=== PATIENT | male | born 1960 | race Caucasian/White ===

== ENCOUNTER 2023-03-28 09:36 | Inpatient (IN) | payer OTHER ==
[~2023-03-28 09:36] MED LIST: ALPRAZolam 0.25 MG TAB PO PRN; ALPRAZolam 0.5 MG TAB PO PRN; ASPIRIN 325 MG TAB PO STA; NITROGLYCERIN SL TABS 0.4 MG TAB SUBLINGUAL PRN
[2023-03-28] MEDS ORDERED: ASPIRIN 81 MG ONE (10:17)
[2023-03-28] MEDS: SODIUM CHLORIDE 0.9% 1,000 ML in EMPTY BAG 1 BAG IV SCH (10:32)
[2023-03-28 10:45] LABS: Basophils % (A) 1 %; Eosinophils # (A) 0.1 k/uL (0-0.7); Eosinophils % (A) 2 %; HCT 46.7 % (39.0-53.0); HGB 15.5 gm/dL (13.0-17.5); Lymphocytes # (A) 1.5 k/uL (1.0-4.8); Lymphocytes % (A) 31 %; MCH 30.1 pg (25.0-35.0); MCHC 33.2 g/dL (31.0-37.0); MCV 90.5 fL (80.0-100.0); Mean Platelet Volume 7.2; Monocytes # (A) 0.4 k/uL (0-1.0); Monocytes % (A) 8 %; Neutrophils # (A) 2.8 k/uL (1.3-7.7); Neutrophils % (A) 56 %; Platelet Count 154 k/uL (150-450); RBC 5.17 m/uL (4.30-5.90); RDW 13.2 % (11.5-15.5); WBC 4.9 k/uL (3.8-10.6)
[2023-03-28 10:51] LABS: Calcium 9.5 mg/dL (8.4-10.2); Potassium 4.3 mmol/L (3.5-5.1)
[2023-03-28] MEDS ORDERED: fentaNYL (PF) 50 MCG/ML 2 ML AMP ONE (11:53)
[2023-03-28] MEDS ORDERED: fentaNYL (PF) 50 MCG/ML 2 ML AMP IV ONE (11:58)
[2023-03-28] MEDS ORDERED: MIDAZOLAM 2 MG/2 ML VIAL IV ONE (11:58)
[2023-03-28] MEDS ORDERED: LIDOCAINE 1% INJ 10MG/ML (5 ML VIAL-PF) SQ ONE (12:00)
[2023-03-28] MEDS ORDERED: VERAPAMIL SYRINGE (5 MG/10 ML) INTRAARTER ONE (12:01)
[2023-03-28] MEDS ORDERED: HEPARIN SODIUM 1,000 UN/ML (10ML VL) ONE (12:02)
[2023-03-28] MEDS ORDERED: HEPARIN SODIUM 1,000 UN/ML (10ML VL) IV ONE (12:08)
[2023-03-28] MEDS ORDERED: IOPAMIDOL-370 100ML BTL INJ ONE (12:17)
[2023-03-28] MEDS ORDERED: RX INFO: IV CONTRAST WAS GIVEN 1 EACH MISC MISCELLANE PRN (12:31)
--- NOTE | 2023-03-28 12:31 | P.CARDCATH ---
Description of Procedure: PROCEDURES PERFORMED: Bilateral coronary angiography INDICATION: Unstable angina, aortic stenosis CONSENT:I have discussed the risks, benefits and alternative therapies for the above-mentioned procedure and for both sedation/analgesia as well as necessary blood product administration, if indicated, as they pertain to this patient. The patient has indicated understanding and acceptance of the risks and procedures discussed. PROCEDURE: After the risks, benefits and alternatives of the above mentioned procedure explained in detail with the patient, informed consent was obtained. Patient was taken to the catheterization lab and prepped and draped in usual fashion. 1% lidocaine was used to anesthetize the right radial artery. A 6- Dutch sheath was placed in the right radial artery using modified Seldinger technique. Left coronary angiography was performed with a 5-Dutch JL 3.5 catheter and right coronary angiography was performed with a 6-Dutch AR 2 catheter in various views. There was significant tortuosity of the innominate takeoff and recommend left radial approach in the future if able. The right radial sheath was removed and a TR band was placed with hemostasis achieved. The patient tolerated the procedure well. Patient was transported back to the post catheterization holding area in stable condition. Conscious Sedation: Patient was monitored under the direct supervision of myself for conscious sedation using Versed and fentanyl for a total duration of 20 minutes HEMODYNAMICS: Aorta: 122/74 SELECTIVE CORONARY ARTERIOGRAPHY: LEFT MAIN: The left main is a large caliber vessel which trifurcates into the LAD, ramus and circumflex. There is distal left main 30% stenosis. LEFT ANTERIOR DESCENDING CORONARY ARTERY: LAD is a large caliber vessel which wraps around to the apex. There is a proximal LAD 80% stenosis followed by a moderate caliber diagonal branch as well as moderate caliber septal angle shearer. The LAD has a 95% stenosis just distal to diagonal 1 branch. There is DANN 2 flow to the LAD. RAMUS INTERMEDIUS: The ramus is moderate caliber with a proximal ramus 30% stenosis. LEFT CIRCUMFLEX CORONARY ARTERY: Left circumflex is a moderate caliber vessel without significant stenosis. RIGHT CORONARY ARTERY: The right coronary artery is a large caliber vessel which gives off a PDA and PLV branch and is the dominant vessel. There is a proximal RCA 40% stenosis and otherwise mild luminal irregularities. FINAL IMPRESSION: 1. CAD as described above including 30% left main, proximal LAD 80%, mid LAD 95%, ramus 30%, RCA 40% stenosis. PLAN: 1. Aggressive risk factor modification per most recent ACC/AHA guidelines. 2. Given concomitant aortic stenosis and proximal and mid LAD diffuse disease recommend evaluation for bypass and surgical aortic valve replacement.
[2023-03-28] MEDS ORDERED: HEPARIN SODIUM 1,000 UN/ML (10ML VL) IV PRN (12:32)
[2023-03-28] MEDS ORDERED: SODIUM CHLORIDE 0.9% 1,000 ML IV SCH (12:45)
[2023-03-28] MEDS ORDERED: HEPARIN SOD,PORK IN 0.45% NACL 25,000 UNIT in 0.45% NACL 1 250ML.BAG IV SCH (12:45)
[2023-03-28 13:51] LABS: INR 1.1 (<1.2); Partial Thromboplastin Time 54.9 sec (22.0-30.0); Prothrombin Time 11.1 sec (9.0-12.0)
[2023-03-28 14:14] LABS: Basophils % (A) 1 %; Eosinophils # (A) 0.1 k/uL (0-0.7); Eosinophils % (A) 2 %; HCT 40.5 % (39.0-53.0); HGB 13.8 gm/dL (13.0-17.5); Lymphocytes # (A) 1.3 k/uL (1.0-4.8); Lymphocytes % (A) 30 %; MCH 29.9 pg (25.0-35.0); MCV 88.2 fL (80.0-100.0); Mean Platelet Volume 7.3; Monocytes # (A) 0.2 k/uL (0-1.0); Monocytes % (A) 5 %; Neutrophils # (A) 2.7 k/uL (1.3-7.7); Neutrophils % (A) 60 %; Platelet Count 145 k/uL (150-450); RBC 4.59 m/uL (4.30-5.90); RDW 13.3 % (11.5-15.5); WBC 4.5 k/uL (3.8-10.6)
[2023-03-28 14:19] LABS: ALT 32 U/L (4-49); AST 35 U/L (17-59); African American GFR (CKD) 83 (>60 ml/min/1.73 sqM); Albumin 3.7 g/dL (3.5-5.0); Alkaline Phosphatase 90 U/L (38-126); Anion Gap 8 mmol/L; Blood Urea Nitrogen 21 mg/dL (9-20); Calcium 8.7 mg/dL (8.4-10.2); Carbon Dioxide 23 mmol/L (22-30); Chloride 106 mmol/L (98-107); Glucose 123 mg/dL (74-99); Non-African American GFR(CKD) 72 (>60 ml/min/1.73 sqM); Sodium 137 mmol/L (137-145); Total Bilirubin 0.6 mg/dL (0.2-1.3); Total Protein 6.5 g/dL (6.3-8.2)
--- NOTE | 2023-03-28 14:55 | XR ---
EXAMINATION TYPE: XR chest 2V DATE OF EXAM: 03/28/2023 COMPARISON: None HISTORY: 62-year-old male preop cardiac surgery TECHNIQUE: Frontal and lateral views FINDINGS: Heart borderline enlarged. Mild interstitial prominence which has a chronic appearance. No consolidat ion or pleural effusion. IMPRESSION: Borderline heart size. Some chronic appearing changes. No definite acute process.
--- NOTE | 2023-03-28 14:56 | US ---
EXAMINATION TYPE: US carotid duplex BILAT DATE OF EXAM: 03/28/2023 COMPARISON: NONE CLINICAL INDICATION: Male, 62 years old with history of Pre-Op Cardiac Surgery; OPEN HEART TECHNIQUE: Carotid duplex ultrasound examination. Indirect Doppler criteria was utilized. FINDINGS: EXAM MEASUREMENTS: RIGHT: Peak Systolic Velocity (PSV) cm/sec ----- Right CCA: 85.4 ----- Right ICA: 95.1 ----- Right ECA: 69.3 ICA/CCA ratio: 1.1 RIGHT: End Diastole cm/sec ----- Right CCA: 20.8 ----- Right ICA: 28.9 ----- Right ECA: 0.0 LEFT: Peak Systolic Velocity (PSV) cm/sec ----- Left CCA: 76.6 ----- Left ICA: 88.4 ----- Left ECA: 64.8 ICA/CCA ratio: 1.2 LEFT: End Diastole cm/sec ----- Left CCA: 23.4 ----- Left ICA: 27.4 ----- Left ECA: 0.0 VERTEBRALS (direction of flow): Right Vertebral: Antegrade Left Vertebral: Antegrade Rhythm: Normal COT[employer]OKER NOTES: No significant stenosis seen, Minimal atherosclerotic change at the carotid bifurcations. IMPRESSION: No hemodynamically significant internal carotid artery stenosis on either side. Criteria for Assigning % of Stenosis / Diameter reduction (Estimation based on the indirect measurements of the internal carotid artery velocities (ICA PSV). 1. Normal (no stenosis)=ICA PSV < 125 cm/s: ratio < 2.0: ICA EDV<40 cm/s. 2. Less than 50% stenosis=ICA PSV < 125 cm/s: ratio < 2.0: ICA EDV<40 cm/s. 3. 50 to 69% stenosis=ICA PSV of 125 to 230 cm/s: ration 2.0 ? 4.0: ICA EDV 40-100 cm/s. 4. Greater than 70% stenosis to near occlusion= ICA PSV > 230 cm/s: ratio > 4.0: ICA EDV > 100 cm/s. 5. Near occlusion= ICA PSV velocities may be low or undetectable: variable ratio and ICA EDV. 6. Total occlusion=unable to detect flow.
--- NOTE | 2023-03-28 15:11 | CT ---
EXAMINATION TYPE: CT chest wo con DATE OF EXAM: 03/28/2023 COMPARISON: None HISTORY: Cardiac Sx evaluate aorta. CT DLP: 575.[address] of the chest was performed with lung and mediastinal window settings submitted. The la ck of contrast limits evaluation of the vascular, mediastinal and parenchymal structures including th e upper abdomen. LUNGS: The lungs are clear and free of infiltrate. Mild basilar compressive atelectasis. No pulmonary nodule or mass is detected. No pleural effusion. No CT evidence of interstitial lung disease. MEDIASTINUM/JOHN: Ascending thoracic aorta measuring 4 cm AP dimension. Aortic valvular density noted . Small hiatal hernia. The heart is not enlarged. No evidence for mediastinal mass. No lymph nodes greater than 1cm. UPPER ABDOMEN: Simple cyst mid to upper pole right kidney measuring 2.6 cm. OTHER: No significant other abnormality. IMPRESSION: 1. Mild ascending thoracic aortic aneurysm.
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
--- NOTE | 2023-03-28 20:32 | CT ---
EXAMINATION TYPE: CT facial bones wo con DATE OF EXAM: 03/28/2023 COMPARISON: None HISTORY: dental clearance for preop. CT DLP: 710.5 mGycm CONTRAST: None The paranasal sinuses are examined in the axial plane at 2 mm thick sections. Reconstructed images i n the coronal plane were obtained. There is dental amalgam scatter artifact. The maxillary sinuses are clear. The ethmoid air cells are clear. The sphenoid sinuses are clear. The frontal sinuses are clear. The septum is evaluated. There is septal deviation to the left. Left septal spurring is present. The ostiomeatal units are patent. No suspicious abscess formation. No suspicious acute sinusitis. IMPRESSIONS: 1. No suspicious acute changes of the facial bones.
[2023-03-28 20:39] LABS: Hepatitis A Antibody IgM Nonreactive (Nonreactive); Hepatitis B Core IgM Nonreactive (Nonreactive); Hepatitis B Surface Antigen Nonreactive (Nonreactive); Hepatitis C IgG Antibody Nonreactive (Nonreactive)
[2023-03-28 20:59] LABS: Chol/HDL Ratio 4.39 Ratio; LDL Cholesterol,Calculated 84.5 mg/dL (0.0-131.0)
[2023-03-28] MEDS: MUPIROCIN 2% OINT 22 GM TUBE NASAL SCH (21:54)
[2023-03-29 02:36] LABS: Basophils % (A) 1 %; Eosinophils # (A) 0.1 k/uL (0-0.7); Eosinophils % (A) 3 %; HCT 40.6 % (39.0-53.0); HGB 13.6 gm/dL (13.0-17.5); Lymphocytes # (A) 1.6 k/uL (1.0-4.8); Lymphocytes % (A) 34 %; MCH 29.7 pg (25.0-35.0); MCHC 33.4 g/dL (31.0-37.0); MCV 88.9 fL (80.0-100.0); Mean Platelet Volume 7.5; Monocytes # (A) 0.3 k/uL (0-1.0); Monocytes % (A) 6 %; Neutrophils # (A) 2.6 k/uL (1.3-7.7); Neutrophils % (A) 55 %; Platelet Count 119 k/uL (150-450); RBC 4.57 m/uL (4.30-5.90); RDW 13.3 % (11.5-15.5); WBC 4.8 k/uL (3.8-10.6)
[2023-03-29 02:56] LABS: Partial Thromboplastin Time 43.1 sec (22.0-30.0); Prothrombin Time 10.7 sec (9.0-12.0)
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
[2023-03-29] MEDS ORDERED: NITROGLYCERIN SL TABS 0.4 MG TAB SUBLINGUAL PRN (08:17)
--- NOTE | 2023-03-29 08:53 | P.PN ---
Subjective Progress Note Date: 03/29/23 Principal diagnosis: Coronary artery disease, and aortic valve stenosis. Past medical history significant for hypertension, hyperlipidemia, hypothyroid, obesity with a BMI of 31.7 kg/m, COVID-19 infection 2 years ago, remains on vaccinated, family history of early onset coronary artery disease with his mom passing away at age 57 from a myocardial infarction and his grandfather having a myocardial infarction in his 40s, remote history of nicotine dependence in which he quit smoking in 1977 and a remote history of daily marijuana use in which he quit in January 2023. The patient was seen and examined in follow-up today 03/29/2023 at his bedside on the cardiac stepdown unit. He is lying in bed, is awake, alert, oriented 3 and is in no acute distress. Denies any complaints of chest pain, chest pressure or shortness of breath. Oxygen saturations are 97% on room air, and he is achieving around 2500 mL on his incentive spirometry with encouragement. A bedside FEV1 was completed yesterday which showed her predicted value of 69% and a base volume of 2.31 L. Transthoracic 2-D echocardiogram report remains pending. Remote telemetry showing normal sinus rhythm with ST depression heart rate 73 BPM. A 5 minute walk test was completed with the patient, time 1: 3.33 seconds, time 2: 2.73 seconds, time 3: 2.63 seconds. Patient tolerated 5 minute walk test well and denies any complaints of shortness of breath or chest pain/pressure. The patient was seen and examined by Dr. Penaloza from dentistry this a.m. and has been cleared for surgery from the dental aspect. Preoperative teaching has been reinforced with the patient. He is scheduled for myocardial revascularization surgery with left internal mammary artery, left radial artery endoscopic harvest, possible endoscopic vein harvest, aortic valve replacement, exclusion left atrial appendage and intraoperative transesophageal echocardiogram for this coming 04/01/2023 to be completed by Dr. Raman Duenas. Objective - Vital Signs Vital signs: Vital Signs Temp 98 F 03/29/23 04:00 Pulse 70 03/29/23 04:00 Resp 16 03/29/23 04:00 BP 117/69 03/29/23 04:00 Pulse Ox 97 03/29/23 04:00 FiO2 Intake & Output 03/28/23 03/29/23 03/29/23 18:59 06:59 18:59 Intake Total 525 156.309 Output Total 300 Balance 525 -143.691 Weight 97.4 kg Intake: IV 525 Intake, IV Titration 156.309 Amount Heparin Sod,Pork in 0.45% 156.309 NaCl 25,000 unit In 0.45 % NaCl 1 250ml.bag @ 10. 27 UNITS/KG/HR 10.003 mls /hr IV .Q24H [facility] Rx#: [id number] Output: Urine 300 Other: Voiding Method Toilet Urinal # Voids 1 - Exam CONSTITUTIONAL: Sitting up in bed on the cardiac stepdown unit, appears comfortable, cooperative, no apparent acute distress. HEENT: Neck is supple, no JVD, no lymphadenopathy. RESPIRATORY: Lungs sounds essentially clear throughout. No wheezes, rhonchi or crackles. Respirations are symmetrical and nonlabored. Currently on room air with oxygen saturations 97%. Able to achieve 2500 mL on his incentive spirometry. Strong cough. CARDIOVASCULAR: Regular rhythm and rate. S1 and S2 present, negative for S3, gallop or murmur. Palpable peripheral pulses bilaterally. No calf pain or tenderness noted. GASTROINTESTINAL: Abdomen soft, nontender, nondistended. Active bowel sounds present 4 quadrants. Tolerating diet. No guarding or rigidity. GENITOURINARY: Continues to void. INTEGUMENTARY: Skin is warm and dry with no evidence of clubbing or cyanosis. NEUROLOGIC: Cranial nerves II through XII intact. No focal deficits. MUSKULOSKELETAL: Able to move all extremities, strength equal bilaterally. PSYCHIATRIC: Alert and oriented to person place and time, appropriate affect, intact judgment and insight. - Allied health notes Allied health notes reviewed: nursing - Labs CBC & Chem 7: 03/29/23 02:20 03/28/23 13:25 Labs: Abnormal Lab Results - Last 24 Hours (Table) 03/28/23 03/28/23 03/28/23 Range/Units 10:25 13:25 13:25 Plt Count 145 L (150-450) k/uL APTT 54.9 H (22.0-30.0) sec BUN 22 H (9-20) mg/dL Glucose 111 H (74-99) mg/dL HDL Cholesterol (40.00-60.00) mg/dL 03/28/23 03/28/23 03/29/23 Range/Units 13:25 19:28 02:20 Plt Count 119 L (150-450) k/uL APTT 36.3 H (22.0-30.0) sec BUN 21 H (9-20) mg/dL Glucose 123 H (74-99) mg/dL HDL Cholesterol 33.70 L (40.00-60.00) mg/dL 03/29/23 Range/Units 02:20 Plt Count (150-450) k/uL APTT 43.1 H (22.0-30.0) sec BUN (9-20) mg/dL Glucose (74-99) mg/dL HDL Cholesterol (40.00-60.00) mg/dL - Imaging and Cardiology Chest x-ray: report reviewed, image reviewed CT scan - chest: report reviewed, image reviewed Carotid duplex study results reviewed. Assessment and Plan Assessment: Coronary artery disease Unstable angina Systolic murmur 01/10, transthoracic 2-D echocardiogram report pending History of hypertension Hyperlipidemia Hypothyroid Remote history of nicotine dependence quit smoking in 1977 Remote history of marijuana use, was smoking a joint daily up until January 2023 Family history of early onset coronary artery disease with his mom passing away at age 57 from a myocardial infarction COVID-19 infection 2 years ago, remains unvaccinated for COVID-19 Plan: Continue to follow transthoracic 2-D echocardiogram report. 5 minute walk test was completed with the patient, time 1: 3.33 seconds, time 2: 2.73 seconds, time 3: 2.63 seconds. Encourage use of incentive spirometry 10 times every hour while awake. Patient is scheduled for myocardial revascularization surgery with left internal mammary artery, left radial artery endoscopic harvest, possible endoscopic vein harvest, aortic valve replacement, exclusion left atrial appendage and intraoperative transesophageal echocardiogram for this coming 04/01/2023 to be completed by Dr. Raman Duenas. He will be nothing by mouth after midnight on 04/01/2023. Once all of his preoperative testing has been collected we will calculate an STS risk score and discussed with the patient. Continue to maximize medical therapy with aspirin, statin and beta nilson, hold SIMI inhibitor/ARB 48 hours prior to surgery to help prevent vasoplegia, discussed with cardiology. Heparin drip management per cardiology recommendations. Continue to monitor platelets, platelets trending down and today are 119. Preoperative testing remains in progress, reinforced preoperative teaching with patient. More recommendations to follow based on patient's clinical course. Time with Patient: Greater than 30
[2023-03-29] MEDS: SODIUM CHLORIDE 0.9% 1,000 ML in EMPTY BAG 1 BAG IV SCH ×2 (09:32→09:33)
[2023-03-29] MEDS: METOPROLOL TARTRATE 25 MG TAB PO SCH (09:38)
[2023-03-29] MEDS: ASPIRIN 81 MG PO SCH (09:39)
[2023-03-29] MEDS: LEVOTHYROXINE 75 MCG TAB PO SCH (09:39)
[2023-03-29] MEDS: MUPIROCIN 2% OINT 22 GM TUBE NASAL SCH ×2 (09:39→20:19)
[2023-03-29] MEDS: ATORVASTATIN 40 MG TAB PO SCH (09:39)
--- NOTE | 2023-03-29 09:57 | CA ---
Transthoracic Echo Report Name: Juan Luis Castañeda Age: 62 Gender: M : 1960 Exam Date: 03/29/2023 07:55 Exam Location: [place] [facility] Ht (in): 69 Wt (lb): 214 Ordering Physician: Darinel Valles Attending/Referring Phys: Hai CHRISTINA Anthropology Professor Chaya Rider, [facility] Procedure CPT: Indications: Evaluate Valves and LV fxn, positive murmur Cardiac Hx: Technical Quality: Fair Contrast 1: Total Dose (mL): Contrast 2: Total Dose (mL): MEASUREMENTS (Male / Female) Normal Values 2D ECHO LV Diastolic Diameter PLAX 4.6 cm 4.2 - 5.9 / 3.9 - 5.3 cm LV Systolic Diameter PLAX 3.5 cm IVS Diastolic Thickness 1.3 cm 0.6 - 1.0 / 0.6 - 0.9 cm LVPW Diastolic Thickness 1.6 cm 0.6 - 1.0 / 0.6 - 0.9 cm LV Relative Wall Thickness 0.6 RV Internal Dim ED PLAX 3.7 cm LVOT Diameter 2.4 cm LA Systolic Diameter LX 3.8 cm 3.0 - 4.0 / 2.7 - 3.8 cm LV Diastolic Volume MOD BP 119.5 cm??? 67 - 155 / 56 - 104 cm??? LV Systolic Volume MOD BP 80.4 cm??? 22 - 58 / 19 - 49 cm??? LV Ejection Fraction MOD BP 32.7 % >= 55 % LV Diastolic Volume MOD 4C 124.8 cm??? LV Systolic Volume MOD 4C 70.2 cm??? LV Ejection Fraction MOD 4C 43.7 % LV Diastolic Length 4C 8.7 cm LV Systolic Length 4C 7.6 cm LV Diastolic Volume MOD 2C 103.9 cm??? LV Systolic Volume MOD 2C 73.2 cm??? LV Ejection Fraction MOD 2C 29.5 % LV Diastolic Length 2C 7.8 cm LV Systolic Length 2C 9.9 cm LA Volume 61.5 cm??? 18 - 58 / 22 - 52 cm??? M-MODE Aortic Root Diameter MM 3.3 cm MV E Point Septal Separation 1.0 cm AV Cusp Separation MM 1.6 cm DOPPLER AV Peak Velocity 402.9 cm/s AV Peak Gradient 64.9 mmHg AV Mean Velocity 297.5 cm/s AV Mean Gradient 41.0 mmHg AV Velocity Time Integral 99.8 cm AI Peak Velocity 427.9 cm/s AI Peak Gradient 73.2 mmHg AI Pressure Half Time 858.2 ms LVOT Peak Velocity 101.5 cm/s LVOT Peak Gradient 4.1 mmHg AV Area Cont Eq pk 1.1 cm??? MV E' Velocity 4.2 cm/s FINDINGS Left Ventricle Left ventricular ejection fraction is estimated at 45-50 %. Left ventricular cavity size normal. Mildly increased septal wall thickness. Moderately increased left ventricular systolic volume. Mildly decreased left ventricular ejection fraction. Apical septal wall hypokinesis, apical anterior hypokinesis. Right Ventricle Mild right ventricular dilatation. Unable to estimate the right ventricular systolic pressure. Right Atrium Normal right atrial size. Left Atrium Mildly increased left atrial volume. Mildly increased left atrial area. Mitral Valve Mitral valve thickened. No mitral stenosis or prolapse. Trace mitral regurgitation. Aortic Valve Moderate Aortic valve sclerosis. Severe aortic stenosis with a peak velocity of 403 m/s, peak gradient 65 mmHg, mean gradient 41 mmHg, and estimated aortic valve area of 1.1 cm???. [id number] aortic regurgitation. Tricuspid Valve Structurally normal tricuspid valve. Trace tricuspid regurgitation. Pulmonic Valve Structurally normal pulmonic valve. No pulmonic regurgitation. Pericardium Normal pericardium. No pericardial effusion. Aorta Normal size aortic root and proximal ascending aorta. CONCLUSIONS Reduced LV systolic function ejection fraction 45% antral apical hypokinesis Severe aortic stenosis with [id number] aortic regurgitation Previewed by: Dr. Andrew Britt MD (Electronically Signed) Final Date: 29 Mar 2023 09:56
[2023-03-29] MEDS: hydroCHLOROthiazide 12.5 MG CAP PO SCH (10:04)
--- NOTE | 2023-03-29 12:33 | P.PN ---
Subjective Progress Note Date: 03/29/23 History of present illness: This is a 62 year old male with past medical history of hypertension and hyper lipidemia, hypothyroidism, obesity, family history of early coronary artery disease, remote history of tobacco use and quit in 1977, remote history of marijuana use and quit in January 2023. Patient was having episodes of feeling fatigued tired, chest pressure and worsening with exertion he had EKG changes and his primary care office and patient was sent to Dr. Maciel for further evaluation. Cardiac catheterization completed yesterday revealed coronary artery disease with 30% stenosis to his left main, 80% stenosis of the proximal LAD and 95% in the mid LAD, 30% stenosis of the ramus coronary artery and 40% in the right coronary artery. Consult was placed to cardiothoracic surgery for eval uation and he is being worked up for planned CABG on Tuesday. Platelet count noted to be 119, WBC 4.8 and hemoglobin 13.6. Potassium 4.0, BUN 21 creatinine 1.09. Hepatitis panel tested negative. Triglycerides 149, cholesterol 140, LDL 84, HDL 33. TSH 2.39. CT of the chest revealed mild ascending thoracic aortic aneurysm measuring 4 cm Echocardiogram reveals reduced LV systolic function with EF of 45%, anteroapical hypokinesis. Severe aortic stenosis with [id number] aortic regurgitation Physical examination: Gen: This is a 62-year-old male, resting bed appears to be comfortable and in no acute distress[ ] VS: reviewed HEENT: Head is atraumatic, normocephalic. Pupils equal, round. Sclerae is anicteric. NECK: Supple. No JVD. LUNGS: Clear to auscultation. No wheezes or rhonchi. No intercostal retractions. HEART: Regular rate and rhythm. 3/6 systolic murmur right sternal border. ABDOMEN: Soft No tenderness. EXTREMITIES: No pedal edema. Dorsalis pedis palpable bilaterally. NEUROLOGICAL: Patient is awake, alert and oriented x3. Assessment: Coronary artery disease scheduled for CABG Severe aortic stenosis with mild to moderate aortic regurgitation AVR scheduled Hypertension Hyperlipidemia Hypothyroidism Remote history of tobacco use, marijuana use Plan: Resume patient's home cardiac medications, hold ARB Further recommendations to follow based upon clinical course Thank you kindly for this consultation. Nurse practitioner note has been reviewed, I agree with documented findings and plan of care. Patient was seen and examined. Objective - Vital Signs Vital signs: Vital Signs Temp 98 F 03/29/23 04:00 Pulse 70 03/29/23 04:00 Resp 16 03/29/23 04:00 BP 117/69 03/29/23 04:00 Pulse Ox 97 03/29/23 04:00 FiO2 Intake & Output 03/28/23 03/29/23 03/29/23 18:59 06:59 18:59 Intake Total 525 156.309 91.502 Output Total 300 Balance 525 -143.691 91.502 Weight 97.4 kg Intake: IV 525 Intake, IV Titration 156.309 91.502 Amount Heparin Sod,Pork in 0.45% 156.309 91.502 NaCl 25,000 unit In 0.45 % NaCl 1 250ml.bag @ 10. 27 UNITS/KG/HR 10.003 mls /hr IV .Q24H [facility] Rx#: [id number] Output: Urine 300 Other: Voiding Method Toilet Urinal # Voids 1 - Labs CBC & Chem 7: 03/29/23 02:20 03/28/23 13:25 Labs: Abnormal Lab Results - Last 24 Hours (Table) 03/28/23 03/28/23 03/28/23 Range/Units 10:25 13:25 13:25 Plt Count 145 L (150-450) k/uL APTT 54.9 H (22.0-30.0) sec BUN 22 H (9-20) mg/dL Glucose 111 H (74-99) mg/dL HDL Cholesterol (40.00-60.00) mg/dL 03/28/23 03/28/23 03/29/23 Range/Units 13:25 19:28 02:20 Plt Count 119 L (150-450) k/uL APTT 36.3 H (22.0-30.0) sec BUN 21 H (9-20) mg/dL Glucose 123 H (74-99) mg/dL HDL Cholesterol 33.70 L (40.00-60.00) mg/dL 03/29/23 03/29/23 Range/Units 02:20 09:05 Plt Count (150-450) k/uL APTT 43.1 H 53.3 H (22.0-30.0) sec BUN (9-20) mg/dL Glucose (74-99) mg/dL HDL Cholesterol (40.00-60.00) mg/dL
[2023-03-30] MEDS: LEVOTHYROXINE 75 MCG TAB PO SCH (06:18)
--- NOTE | 2023-03-30 08:01 | P.PN ---
Subjective Progress Note Date: 03/30/23 Principal diagnosis: Coronary artery disease, unstable angina, reduced left ventricular systolic function. History of severe aortic stenosis, hypertension, hyperlipidemia, hypothyroid, previous tobacco dependence, recent cessation of marijuana use, covid in 2020 (remains unvaccinated), obesity, and family history of premature CAD The patient was seen and examined this morning laying in bed on the cardiac stepdown unit in no acute distress. Denies any chest pain or shortness of breath in the last 24 hours. Remains in sinus rhythm, hemodynamically stable, currently on room air. States he has been ambulatory without difficulty. Preoperative teaching continues. No other new concerns. Objective - Vital Signs Vital signs: Vital Signs Temp 97.5 F L 03/30/23 03:39 Pulse 70 03/30/23 03:39 Resp 19 03/30/23 03:39 BP 105/58 03/30/23 03:39 Pulse Ox 96 03/30/23 03:39 FiO2 Intake & Output 03/29/23 03/30/23 03/30/23 18:59 06:59 18:59 Intake Total 989.502 Balance 989.502 Intake: Intake, IV Titration 91.502 Amount Heparin Sod,Pork in 0.45% 91.502 NaCl 25,000 unit In 0.45 % NaCl 1 250ml.bag @ 10. 27 UNITS/KG/HR 10.003 mls /hr IV .Q24H [facility] Rx#: [id number] Oral 898 Other: Voiding Method Toilet Toilet Urinal Urinal # Voids 2 1 - Exam CONSTITUTIONAL: Appears comfortable, cooperative, no acute distress RESPIRATORY: Lungs sounds clear bilaterally. Respirations even, nonlabored. Currently on room air with oxygen saturation 96%. Able to achieve 2750 mL on incentive spirometry. Strong cough. CARDIOVASCULAR: S1, barely audible S2 present, systolic murmur present. Regular rate and rhythm, sinus rhythm on telemetry. Palpable peripheral pulses bilaterally. No edema present. GASTROINTESTINAL: Abdomen soft, nontender, nondistended. Active bowel sounds present 4 quadrants. Tolerating diet GENITOURINARY: Continues to void INTEGUMENTARY: Skin is warm and dry NEUROLOGIC: Cranial nerves II through XII intact MUSKULOSKELETAL: Able to move all extremities, strength equal bilaterally, gait normal PSYCHIATRIC: Alert and oriented to person place and time, appropriate affect, intact judgment and insight - Allied health notes Allied health notes reviewed: nursing - Labs CBC & Chem 7: 03/29/23 02:20 03/28/23 13:25 Labs: Abnormal Lab Results - Last 24 Hours (Table) 03/29/23 Range/Units 09:05 APTT 53.3 H (22.0-30.0) sec Microbiology - Last 24 Hours (Table) 03/29/23 09:35 Nasal Screen MRSA/MSSA - Preliminary Nasal Swab Assessment and Plan Assessment: Coronary artery disease, unstable angina Reduced left ventricular systolic function, EF 45-50% Severe aortic stenosis, pk/mean gradient 65/41 mmHg, Vmax 4.03 Hypertension Hyperlipidemia, treated, chol 148, LDL 84.5 Hypothyroid, TSH 2.39 Previous tobacco dependence, FEV 1 69% Recent cessation of marijuana use Covid in 2020 (remains unvaccinated) Obesity Family history of premature CAD Plan: Continue to maximize medical therapy with ASA, statin, beta nilson Encourage use of incentive spirometry 10 times every hour while awake Increase activity as tolerated HIT panel sent, await results Our plan is for surgical myocardial revascularization with left internal mammary artery, left radial artery, possible endoscopic vein harvest, aortic valve replacement, exclusion left atrial appendage by Dr. Duenas 04/01/2023 Dental clearance has been obtained Continue preoperative teaching Will consult pulmonology tomorrow Medical management of other comorbidities per internal medicine, cardiology More recommendations to follow
[2023-03-30] MEDS: METOPROLOL TARTRATE 25 MG TAB PO SCH (08:28)
[2023-03-30] MEDS: ATORVASTATIN 40 MG TAB PO SCH (08:28)
[2023-03-30] MEDS: MUPIROCIN 2% OINT 22 GM TUBE NASAL SCH ×2 (08:28→19:45)
[2023-03-30] MEDS: hydroCHLOROthiazide 12.5 MG CAP PO SCH (08:28)
[2023-03-30] MEDS: ASPIRIN 81 MG PO SCH (08:28)
--- NOTE | 2023-03-30 11:19 | P.PN ---
Subjective Progress Note Date: 03/30/23 History of present illness: This is a 62 year old male with past medical history of hypertension and hyper lipidemia, hypothyroidism, obesity, family history of early coronary artery disease, remote history of tobacco use and quit in 1977, remote history of marijuana use and quit in January 2023. Patient was having episodes of feeling fatigued tired, chest pressure and worsening with exertion he had EKG changes and his primary care office and patient was sent to Dr. Maciel for further evaluation. Cardiac catheterization completed yesterday revealed coronary artery disease with 30% stenosis to his left main, 80% stenosis of the proximal LAD and 95% in the mid LAD, 30% stenosis of the ramus coronary artery and 40% in the right coronary artery. Consult was placed to cardiothoracic surgery for eval uation and he is being worked up for planned CABG on Tuesday. Platelet count noted to be 119, WBC 4.8 and hemoglobin 13.6. Potassium 4.0, BUN 21 creatinine 1.09. Hepatitis panel tested negative. Triglycerides 149, cholesterol 140, LDL 84, HDL 33. TSH 2.39. CT of the chest revealed mild ascending thoracic aortic aneurysm measuring 4 cm Echocardiogram reveals reduced LV systolic function with EF of 45%, anteroapical hypokinesis. Severe aortic stenosis with [id number] aortic regurgitation 03/30 Patient is seen today in follow-up. He is in process of workup for CABG in AVR on Tuesday. Patient denies having any chest pain or shortness of breath. He states he has been ambulating without any difficulty and no lightheadedness or dizziness. Heart rate is running in the 70s and 80s, blood pressure 116/71. Telemetry has been a sinus rhythm. Physical examination: Gen: This is a 62-year-old male, resting bed appears to be comfortable and in no acute distress[ ] VS: reviewed HEENT: Head is atraumatic, normocephalic. Pupils equal, round. Sclerae is anicteric. NECK: Supple. No JVD. LUNGS: Clear to auscultation. No wheezes or rhonchi. No intercostal retractions. HEART: Regular rate and rhythm. 3/6 systolic murmur right sternal border. ABDOMEN: Soft No tenderness. EXTREMITIES: No pedal edema. Dorsalis pedis palpable bilaterally. NEUROLOGICAL: Patient is awake, alert and oriented x3. Assessment: Coronary artery disease scheduled for CABG Severe aortic stenosis with mild to moderate aortic regurgitation AVR scheduled Hypertension Hyperlipidemia Hypothyroidism Remote history of tobacco use, marijuana use Plan: Resume patient's home cardiac medications, hold ARB Further recommendations to follow based upon clinical course Thank you kindly for this consultation. Nurse practitioner note has been reviewed, I agree with documented findings and plan of care. Patient was seen and examined. Objective - Vital Signs Vital signs: Vital Signs Temp 97.9 F 03/30/23 08:00 Pulse 82 03/30/23 08:00 Resp 18 03/30/23 08:00 BP 116/71 03/30/23 08:00 Pulse Ox 96 03/30/23 08:00 FiO2 Intake & Output 03/29/23 03/30/23 03/30/23 18:59 06:59 18:59 Intake Total 989.502 658 Balance 989.502 658 Intake: Intake, IV Titration 91.502 Amount Heparin Sod,Pork in 0.45% 91.502 NaCl 25,000 unit In 0.45 % NaCl 1 250ml.bag @ 10. 27 UNITS/KG/HR 10.003 mls /hr IV .Q24H [facility] Rx#: [id number] Oral [id number] [id number] Other: Voiding Method Toilet Toilet Urinal Urinal # Voids 2 1 - Labs CBC & Chem 7: 03/29/23 02:20 03/28/23 13:25 Labs: Microbiology - Last 24 Hours (Table) 03/29/23 09:35 Nasal Screen MRSA/MSSA - Preliminary Nasal Swab
[2023-03-30] MEDS ORDERED: ACETAMINOPHEN TAB 325 MG TAB PO PRN (14:36)
[2023-03-31] MEDS: LEVOTHYROXINE 75 MCG TAB PO SCH (06:35)
[2023-03-31 07:41] LABS: Basophils % (A) 0 %; Eosinophils # (A) 0.1 k/uL (0-0.7); Eosinophils % (A) 3 %; HCT 45.1 % (39.0-53.0); HGB 14.9 gm/dL (13.0-17.5); Lymphocytes # (A) 1.5 k/uL (1.0-4.8); Lymphocytes % (A) 27 %; MCH 29.8 pg (25.0-35.0); MCHC 33.1 g/dL (31.0-37.0); MCV 90.1 fL (80.0-100.0); Mean Platelet Volume 7.2; Monocytes # (A) 0.4 k/uL (0-1.0); Monocytes % (A) 7 %; Neutrophils # (A) 3.4 k/uL (1.3-7.7); Neutrophils % (A) 61 %; Platelet Count 149 k/uL (150-450); RBC 5.01 m/uL (4.30-5.90); RDW 13.2 % (11.5-15.5); WBC 5.6 k/uL (3.8-10.6)
--- NOTE | 2023-03-31 07:53 | P.PN ---
Subjective Progress Note Date: 03/31/23 Principal diagnosis: Coronary artery disease, unstable angina, reduced left ventricular systolic function. History of severe aortic stenosis, hypertension, hyperlipidemia, hypothyroid, previous tobacco dependence, recent cessation of marijuana use, covid in 2020 (remains unvaccinated), obesity, and family history of premature CAD The patient was seen and examined this morning laying in bed on the cardiac stepdown unit in no acute distress eating breakfast. Denies any chest pain or shortness of breath in the last 24 hours. Remains in sinus rhythm, hemodynamically stable, currently on room air. States he has been ambulatory without difficulty. Preoperative teaching continues. The patient was seen by Dr. Duenas yesterday, plan for surgery was discussed, patient without any new questions. No other new concerns. Objective - Vital Signs Vital signs: Vital Signs Temp 98.1 F 03/31/23 03:47 Pulse 75 03/31/23 03:47 Resp 16 03/31/23 03:47 BP 101/67 03/31/23 03:47 Pulse Ox 96 03/31/23 03:47 FiO2 Intake & Output 03/30/23 03/31/23 03/31/23 18:59 06:59 18:59 Intake Total 658 Balance 658 Weight 94.1 kg Intake: Oral 658 Other: # Voids 1 - Exam CONSTITUTIONAL: Appears comfortable, cooperative, no acute distress RESPIRATORY: Lungs sounds clear bilaterally. Respirations even, nonlabored. Currently on room air with oxygen saturation 96%. Able to achieve 2750 mL on incentive spirometry. Strong cough. CARDIOVASCULAR: S1, barely audible S2 present, systolic murmur present. Re gular rate and rhythm, sinus rhythm on telemetry. Palpable peripheral pulses bilaterally. No edema present. GASTROINTESTINAL: Abdomen soft, nontender, nondistended. Active bowel sounds present 4 quadrants. Tolerating diet GENITOURINARY: Continues to void INTEGUMENTARY: Skin is warm and dry NEUROLOGIC: Cranial nerves II through XII intact MUSKULOSKELETAL: Able to move all extremities, strength equal bilaterally, gait normal PSYCHIATRIC: Alert and oriented to person place and time, appropriate affect, intact judgment and insight - Allied health notes Allied health notes reviewed: nursing - Labs CBC & Chem 7: 03/31/23 07:05 03/31/23 07:05 Labs: Abnormal Lab Results - Last 24 Hours (Table) 03/31/23 Range/Units 07:05 Plt Count 149 L (150-450) k/uL Microbiology - Last 24 Hours (Table) 03/29/23 09:35 Nasal Screen MRSA/MSSA - Final Nasal Swab Assessment and Plan Assessment: Coronary artery disease, unstable angina Reduced left ventricular systolic function, EF 45-50% Severe aortic stenosis, pk/mean gradient 65/41 mmHg, Vmax 4.03 Hypertension Hyperlipidemia, treated, chol 148, LDL 84.5 Hypothyroid, TSH 2.39 Previous tobacco dependence, FEV 1 69% Recent cessation of marijuana use Covid in 2020 (remains unvaccinated) Obesity Family history of premature CAD Plan: Continue to maximize medical therapy with ASA, statin, beta nilson Encourage use of incentive spirometry 10 times every hour while awake Increase activity as tolerated HIT panel sent, negative Our plan is for surgical myocardial revascularization with left internal mammary artery, endoscopic vein harvest, aortic valve replacement, exclusion left atrial appendage by Dr. Duenas 04/01/2023 Dental clearance has been obtained Continue preoperative teaching Will consult pulmonology Medical management of other comorbidities per internal medicine, cardiology More recommendations to follow
[2023-03-31 07:58] LABS: Partial Thromboplastin Time 23.5 sec (22.0-30.0); Prothrombin Time 10.4 sec (9.0-12.0)
[2023-03-31 08:03] LABS: Albumin 4.1 g/dL (3.5-5.0); Calcium 9.1 mg/dL (8.4-10.2); Magnesium 2.1 mg/dL (1.6-2.3); Total Bilirubin 0.7 mg/dL (0.2-1.3); Total Protein 7.3 g/dL (6.3-8.2)
[2023-03-31] MEDS: METOPROLOL TARTRATE 25 MG TAB PO SCH (10:02)
[2023-03-31] MEDS: ASPIRIN 81 MG PO SCH (10:02)
[2023-03-31] MEDS: hydroCHLOROthiazide 12.5 MG CAP PO SCH (10:03)
[2023-03-31] MEDS: ATORVASTATIN 40 MG TAB PO SCH (10:03)
[2023-03-31] MEDS: MUPIROCIN 2% OINT 22 GM TUBE NASAL SCH ×2 (10:03→20:02)
[2023-03-31] MEDS ORDERED: MD COMMUNICATION TO PHARMACY 1 EACH MISC PO ONE ×2 (10:38)
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
--- NOTE | 2023-03-31 13:22 | P.PN ---
Subjective Progress Note Date: 03/31/23 History of present illness: This is a 62 year old male with past medical history of hypertension and hyper lipidemia, hypothyroidism, obesity, family history of early coronary artery disease, remote history of tobacco use and quit in 1977, remote history of marijuana use and quit in January 2023. Patient was having episodes of feeling fatigued tired, chest pressure and worsening with exertion he had EKG changes and his primary care office and patient was sent to Dr. Maciel for further evaluation. Cardiac catheterization completed yesterday revealed coronary artery disease with 30% stenosis to his left main, 80% stenosis of the proximal LAD and 95% in the mid LAD, 30% stenosis of the ramus coronary artery and 40% in the right coronary artery. Consult was placed to cardiothoracic surgery for eval uation and he is being worked up for planned CABG on Tuesday. Platelet count noted to be 119, WBC 4.8 and hemoglobin 13.6. Potassium 4.0, BUN 21 creatinine 1.09. Hepatitis panel tested negative. Triglycerides 149, cholesterol 140, LDL 84, HDL 33. TSH 2.39. CT of the chest revealed mild ascending thoracic aortic aneurysm measuring 4 cm Echocardiogram reveals reduced LV systolic function with EF of 45%, anteroapical hypokinesis. Severe aortic stenosis with [id number] aortic regurgitation 03/30 Patient is seen today in follow-up. He is in process of workup for CABG in AVR on Tuesday. Patient denies having any chest pain or shortness of breath. He states he has been ambulating without any difficulty and no lightheadedness or dizziness. Heart rate is running in the 70s and 80s, blood pressure 116/71. Telemetry has been a sinus rhythm. 03/31 The patient was found sitting in a recliner. He states he had a little bit of chest pressure and left-sided his chest when he is laying down. He does not have any now. No shortness of breath, no lightheadedness or dizziness. He has been ambulatory and independent. Anticipate surgical intervention tomorrow morning Physical examination: Gen: This is a 62-year-old male, resting bed appears to be comfortable and in no acute distress[ ] VS: reviewed HEENT: Head is atraumatic, normocephalic. Pupils equal, round. Sclerae is anicte radha. NECK: Supple. No JVD. LUNGS: Clear to auscultation. No wheezes or rhonchi. No intercostal r etractions. HEART: Regular rate and rhythm. 3/6 systolic murmur right sternal border. ABDOMEN: Soft No tenderness. EXTREMITIES: No pedal edema. Dorsalis pedis palpable bilaterally. NEUROLOGICAL: Patient is awake, alert and oriented x3. Assessment: Coronary artery disease scheduled for CABG Severe aortic stenosis with mild to moderate aortic regurgitation AVR scheduled Hypertension Hyperlipidemia Hypothyroidism Remote history of tobacco use, marijuana use Plan: Resume patient's home cardiac medications, hold ARB Further recommendations to follow based upon clinical course Thank you kindly for this consultation. Nurse practitioner note has been reviewed, I agree with documented findings and plan of care. Patient was seen and examined. Objective - Vital Signs Vital signs: Vital Signs Temp 98.1 F 03/31/23 11:58 Pulse 66 03/31/23 11:58 Resp 18 03/31/23 11:58 BP 140/87 03/31/23 11:58 Pulse Ox 98 03/31/23 11:58 FiO2 Intake & Output 03/30/23 03/31/23 03/31/23 18:59 06:59 18:59 Intake Total 658 540 Balance 658 540 Weight 94.1 kg Intake: Oral 658 540 Other: # Voids 1 - Labs CBC & Chem 7: 03/31/23 07:05 03/31/23 07:05 Labs: Abnormal Lab Results - Last 24 Hours (Table) 03/31/23 03/31/23 Range/Units 07:05 07:05 Plt Count 149 L (150-450) k/uL Crossmatch See Detail Microbiology - Last 24 Hours (Table) 03/29/23 09:35 Nasal Screen MRSA/MSSA - Final Nasal Swab
--- NOTE | 2023-03-31 13:48 | US ---
EXAMINATION TYPE: US vein mapping BIL DATE OF EXAM: 03/28/2023 2:33 PM COMPARISON: NONE CLINICAL INDICATION: Male, 62 years old with history of PreOp Cardiac Surgery; SIDE PERFORMED: Bilateral TECHNIQUE: Lower extremity saphenous vein is examined and measured utilizing real time linear array sonography. Patient History: Smoker: previous Heart Disease: No Previous DVT: No Vascular Surgery: No Discoloration: No Hypertension: Yes Diabetes: No Paralysis: No Varicosities: No Edema: No DUPLEX FINDINGS: Greater Saphenous: Color flow seen Measurements in mm: Right Greater Saphenous: Groin: 7.8x4.5 mm High Thigh: 4.1x2.5 mm Mid Thigh: 3.9x2.0 mm Above Knee: 3.7x2.0 mm Knee: 5.3x2.8 mm Below Knee: 3.2x3.5 mm Mid Calf: 2.3x1.6 mm At Ankle: 2.9x3.1 mm Left Greater Saphenous: Groin: 5.6x6.0 mm High Thigh: 3.8x3.8 mm Mid Thigh: 4.9x4.1 mm Above Knee: 3.8x3.2 mm Knee: 3.6x3.0 mm Below Knee: 3.6x2.6 mm Mid Calf: 3.2x3.1 mm At Ankle: 3.2x2.3 mm IMPRESSION: 1. Bilateral GSV measurements listed above. 2. Performing surgeon to determine viability as conduit.
--- NOTE | 2023-03-31 13:50 | US ---
EXAMINATION TYPE: Pre-Operative Non-Invasive Evaluation of the hand for Potential Radial Artery Anyi , Measurements only DATE OF EXAM: 03/28/2023 2:32 PM CLINICAL INDICATION: Male, 62 years old with history of Pre-Op Cardiac Surgery; OPEN HEART SIDE PERFORMED: Right TECHNIQUE: Radial artery is measured utilizing real time linear array sonography. Dominant hand: Right Duplex Findings: Radial Artery: Color flow seen Measurements in mm, transverse view: Right Radial: Proximal: 3.2X3.4 mm Mid: 3.0X3.3 mm Distal: 2.5X3.6 mm Prox and distal images are swapped and mislabeled, correct measurements are above IMPRESSION: 1. Right radial artery measurements listed above. 2. Performing surgeon to determine viability as conduit.
--- NOTE | 2023-03-31 13:54 | US ---
EXAMINATION TYPE: US arterial LE single level DATE OF EXAM: 03/28/2023 4:07 PM CLINICAL INDICATION: Male, 62 years old with history of Ankle Brachial Index (REJI) ; PreCabg History of: Smoker: Previous Hypertension: Takes medication Diabetic: No Hyperlipidemia: Yes TIA/CVA: No Previous Vascular Surgery: No CAD: Yes CT: No Vascular Ulcers: No Claudication: No Gangrene: No Doppler Waveforms: Right: Monophasic to biphasic Left: Multiphasic Pulse Volume Recording: Pressure Gradients: Right Brachial Pressure: Deferred due to radial approach heart cath today Left Brachial Pressure: 113 Ankle-Brachial Indices: Right: 1.1 Left: 1.2 Toe Brachial Indices: Right: 0.8 Left: 0.7 Some loss of phasicity on the right is nonspecific. IMPRESSION: Normal bilateral REJI and TBI values.
[2023-04-01] MEDS: LEVOTHYROXINE 75 MCG TAB PO SCH (04:30)
[2023-04-01] MEDS ORDERED: NITROGLYCERIN-D5W PMX 50 MG in DEXTROSE/WATER 1 250ML.BAG IV SCH ×2 (05:00→14:04)
[2023-04-01] MEDS ORDERED: HEPARIN SODIUM,PORCINE 5,000 UNIT in SODIUM CHLORIDE 0.9% 500 ML 500 ML IV ONE (05:00)
[2023-04-01] MEDS ORDERED: ELECTROLYTE-A SOLUTION 1,000 ML with POTASSIUM CHLORIDE 40 MEQ, MAGNESIUM SULFATE 16 ME... IV ONE ×5 (05:00)
[2023-04-01] MEDS ORDERED: PHENYLEPHRINE 40 MG in SODIUM CHLORIDE 0.9% 250 ML IV ONE (05:00)
[2023-04-01] MEDS ORDERED: ATORVASTATIN 10 MG TAB PO ONE (05:00)
[2023-04-01] MEDS ORDERED: CLEVIDIPINE BUTYRATE 25 MG in EMPTY BAG 1 BAG IV SCH ×2 (05:00→14:04)
[2023-04-01] MEDS ORDERED: CALCIUM CHLORIDE 100 MG/ML 10 ML SYRINGE IVP ONE (05:00)
[2023-04-01] MEDS ORDERED: PROTAMINE SULFATE 10 MG/ML 25 ML VIAL IV ONE ×2 (05:00→07:31)
[2023-04-01] MEDS ORDERED: PAPAVERINE 360 MG in SODIUM CHLORIDE 0.9% 90 ML IV ONE (05:00)
[2023-04-01] MEDS ORDERED: NITROGLYCERIN-D5W PMX 25 MG/250 ML BTL IV ONE (05:00)
[2023-04-01] MEDS ORDERED: SODIUM BICARB 8.4% 50 ML SYR (1 MEQ/ML) IV ONE (05:00)
[2023-04-01] MEDS ORDERED: LACTATED RINGERS 1,000 ML IV SCH (05:00)
[2023-04-01] MEDS ORDERED: MANNITOL 25% 12.5 GM/50 ML VIAL IV ONE ×2 (05:00)
[2023-04-01] MEDS ORDERED: TRANEXAMIC ACID 2,000 MG in SODIUM CHLORIDE 0.9% 80 ML IV ONE ×4 (05:00)
[2023-04-01] MEDS ORDERED: PHENYLEPHRINE 10 MG/ML VIAL IV ONE (05:00)
[2023-04-01] MEDS ORDERED: ALBUMIN HUMAN 25% 50 ML in EMPTY BAG 1 BAG IVPB ONE (05:00)
[2023-04-01] MEDS ORDERED: MAGNESIUM SULFATE 16.24 MEQ in EMPTY SYRINGE 1 SYR IV ONE (05:00)
[2023-04-01] MEDS ORDERED: ALBUMIN HUMAN 5% 500 ML in EMPTY BAG 1 BAG IVPB ONE ×6 (05:00)
[2023-04-01] MEDS ORDERED: ceFAZolin 1,000 MG in SODIUM CHLORIDE 0.9% IRRIGATIO 1,000 ML IRRIGATION ONE (05:00)
[2023-04-01] MEDS ORDERED: NOREPINEPHRINE 4 MG in SODIUM CHLORIDE 0.9% 250 ML IV SCH (05:00)
[2023-04-01] MEDS ORDERED: ASPIRIN 325 MG TAB PO ONE (05:00)
[2023-04-01] MEDS ORDERED: PROTAMINE SULFATE 250 MG in EMPTY BAG 1 BAG IV ONE (05:00)
[2023-04-01] MEDS ORDERED: METOPROLOL TARTRATE 12.5 MG TAB PO ONE (05:00)
[2023-04-01] MEDS ORDERED: ELECTROLYTE-A SOLUTION 1,000 ML with POTASSIUM CHLORIDE 100 MEQ, MAGNESIUM SULFATE 16 M... IV ONE ×5 (05:00)
[2023-04-01] MEDS ORDERED: INSULIN REGULAR 100 UNIT in SODIUM CHLORIDE 0.9% 100 ML IV SCH ×2 (05:00→14:04)
[2023-04-01] MEDS ORDERED: HEPARIN SODIUM 1,000 UN/ML (10ML VL) IV ONE (05:00)
[2023-04-01] MEDS ORDERED: CHLORHEXIDINE GLUCONATE 15 ML CUP MUCOUS MEM ONE (05:00)
[2023-04-01] MEDS ORDERED: WATER FOR INJECTION, STERILE 10 ML VIAL IV ONE (07:31)
[2023-04-01] MEDS ORDERED: ALBUMIN HUMAN 5% (25gm) 500 ML VIAL IVPB ONE (07:31)
[2023-04-01] MEDS ORDERED: SODIUM CHLORIDE 0.9% IRRIG 1,000 ML BTL IRRIGATION ONE (07:31)
[2023-04-01] MEDS ORDERED: MIDAZOLAM HCL 10 MG/10 ML VIAL ONE (07:31)
[2023-04-01] MEDS ORDERED: CALCIUM CHLORIDE 100 MG/ML 10 ML SYRINGE ONE (07:31)
[2023-04-01] MEDS ORDERED: PHENYLEPHRINE-0.9% NACL SYG 1,000 MCG/10 ML SYRINGE ONE (07:31)
[2023-04-01] MEDS ORDERED: ELECTROLYTE-R (PH 7.4) 1,000 ML IV.SOLN IV ONE (07:31)
[2023-04-01] MEDS ORDERED: HEPARIN SODIUM,PORCINE 10,000 UNIT/ML 1 ML VIAL ONE (07:31)
[2023-04-01] MEDS ORDERED: INSULIN REGULAR 100 UNIT/ML VIAL (IV) ONE (07:31)
[2023-04-01] MEDS ORDERED: NITROGLYCERIN-D5W PMX 50 MG/250 ML BOTTLE IV ONE (07:31)
[2023-04-01] MEDS ORDERED: PROPOFOL 10 MG/ML 20 ML VIAL IV ONE (07:31)
[2023-04-01] MEDS ORDERED: LIDOCAINE 2% SYG (PF) 100 MG/5 ML ONE (07:31)
[2023-04-01] MEDS ORDERED: ePHEDrine 50 MG/ML 1 ML VIAL ONE (07:31)
[2023-04-01] MEDS ORDERED: MAGNESIUM SULFATE 4 MEQ/ML 10ML VIAL ONE (07:31)
[2023-04-01] MEDS ORDERED: TRANEXAMIC ACID IN NACL,ISO-OS 1,000 MG/100 ML BAG ONE (07:31)
[2023-04-01] MEDS ORDERED: VECURONIUM 10 MG VIAL IV ONE (07:31)
[2023-04-01] MEDS ORDERED: fentaNYL (PF) 50 MCG/ML 50 ML VIAL ONE (07:31)
--- NOTE | 2023-04-01 09:59 | P.ANPRN ---
Procedure Note - Anesthesia - Invasive Line Right Arterial Line Time Out Performed: Yes Date of Procedure: 04/01/23 Time of Procedure: 07:05 Location of Patient: PreOp Preparation: Sterile Prep, Sterile Dressing Arterial Line Location: Radial Ultrasound Used: No Needle Guage: 20 Image Stored and Saved: Yes Narrative: Right radial arterial line placed by PAINTER PLATE Right Central Line Time Out Performed: Yes Date of Procedure: 04/01/23 Time of Procedure: 07:35 Location of Patient: PreOp Preparation: Sterile Prep, Sterile Dressing Central Line Location: Internal Jugular Ultrasound Used: Yes Purpose - Visualization and Identification of Vasculature: Yes Needle Guage: 18 Image Stored and Saved: Yes Narrative: Central line placement per sterile protocol utilized. Right [place] Time Out Performed: Yes Date of Procedure: 04/01/23 Time of Procedure: 07:45 Location of Patient: PreOp Preparation: Sterile Prep, Sterile Dressing [place] Line Location: Internal Jugular Ultrasound Used: No Narrative: All ports flushed and balloon tested. [place] advanced until PA waveform obtained. Secured at 42 cm
[2023-04-01 10:30] LABS: ABG Base Excess -1.7 mmol/L; ABG Glucose Whole Blood 116 mg/dL (75-99); ABG HCO3 25 mmol/L (21-25); ABG Hematocrit 41 % (34.0-46.0); ABG Ionized Calcium 4.8 mg/dL (4.5-5.3); ABG Lactic Acid Whole Blood 0.9 mmol/L (0.5-1.6); ABG Oxygen Saturation 98.1 % (94-97); ABG PCO2 50 mmHg (35-45); ABG PH 7.31 (7.35-7.45); ABG PO2 155 mmHg (83-108); ABG Potassium Whole Blood 4.5 mmol/L (3.4-4.5); ABG Sodium Whole Blood 139 mmol/L (135-146); ABG TCO2 27 mmol/L (19-24)
[2023-04-01 11:09] LABS: ABG Base Excess 2.5 mmol/L; ABG Glucose Whole Blood 114 mg/dL (75-99); ABG HCO3 27 mmol/L (21-25); ABG Hematocrit 33 % (34.0-46.0); ABG Oxygen Saturation 99.6 % (94-97); ABG PCO2 39 mmHg (35-45); ABG PH 7.45 (7.35-7.45); ABG Potassium Whole Blood 4.4 mmol/L (3.4-4.5); ABG Sodium Whole Blood 138 mmol/L (135-146); ABG TCO2 28 mmol/L (19-24)
[2023-04-01 11:41] LABS: ABG Base Excess 2.3 mmol/L; ABG Glucose Whole Blood 108 mg/dL (75-99); ABG HCO3 26 mmol/L (21-25); ABG Hematocrit 29 % (34.0-46.0); ABG Ionized Calcium 3.9 mg/dL (4.5-5.3); ABG Lactic Acid Whole Blood 1.2 mmol/L (0.5-1.6); ABG Oxygen Saturation 99.6 % (94-97); ABG PCO2 37 mmHg (35-45); ABG PH 7.46 (7.35-7.45); ABG Potassium Whole Blood 5.3 mmol/L (3.4-4.5); ABG Sodium Whole Blood 138 mmol/L (135-146); ABG TCO2 27 mmol/L (19-24)
[2023-04-01 12:17] LABS: ABG Base Excess 1.4 mmol/L; ABG Glucose Whole Blood 104 mg/dL (75-99); ABG HCO3 25 mmol/L (21-25); ABG Hematocrit 29 % (34.0-46.0); ABG Ionized Calcium 3.9 mg/dL (4.5-5.3); ABG Lactic Acid Whole Blood 1.2 mmol/L (0.5-1.6); ABG Oxygen Saturation 99.4 % (94-97); ABG PCO2 34 mmHg (35-45); ABG PH 7.47 (7.35-7.45); ABG PO2 392 mmHg (83-108); ABG Potassium Whole Blood 5.3 mmol/L (3.4-4.5); ABG Sodium Whole Blood 138 mmol/L (135-146); ABG TCO2 26 mmol/L (19-24)
[2023-04-01] MEDS ORDERED: CALCIUM GLUCONATE IN NACL 2 GM in SALINE 1 100ML.BAG IVPB PRN (14:04)
[2023-04-01] MEDS ORDERED: DEXTROSE 5% IN WATER 100 ML with AMIODARONE 150 MG IV PRN (14:04)
[2023-04-01] MEDS ORDERED: BENZOCAINE/MENTHOL LOZENG 1 EACH LOZENGE MUCOUS MEM PRN (14:04)
[2023-04-01] MEDS ORDERED: ONDANSETRON 4 MG/2 ML VIAL IVP PRN (14:04)
[2023-04-01] MEDS ORDERED: Potassium Replacement Protocol 1 EACH MISC MISCELLANE PRN (14:04)
[2023-04-01] MEDS ORDERED: DEXTROSE 50% SYRINGE 50 ML IVP PRN ×2 (14:04)
[2023-04-01] MEDS ORDERED: METOCLOPRAMIDE 5 MG/ML 2 ML VIAL IVP PRN (14:04)
[2023-04-01] MEDS ORDERED: AMIODARONE 360 MG in DEXTROSE 5% IN WATER 200 ML IV PRN ×2 (14:04)
[2023-04-01] MEDS ORDERED: Magnesium Replacement Protocol 1 EACH MISC MISCELLANE PRN (14:04)
[2023-04-01] MEDS ORDERED: DEXMEDETOMIDINE/0.9% NACL(PMX) 400 MCG in EMPTY BAG 1 BAG IV SCH (14:04)
[2023-04-01] MEDS ORDERED: AMIODARONE 450 MG in DEXTROSE 5% IN WATER 250 ML IV PRN ×2 (14:04)
[2023-04-01] MEDS ORDERED: hydrALAZINE HCL 20 MG/ML 1 ML VIAL IVP PRN (14:04)
[2023-04-01 14:29] LABS: Allen Test Performed? No
[2023-04-01] MEDS: ATORVASTATIN 40 MG TAB PO SCH (14:34)
[2023-04-01 14:38] LABS: ABG PO2 >420 mmHg (83-108)
[2023-04-01 14:39] LABS: Allen Test Performed? No
[2023-04-01 14:40] LABS: Allen Test Performed? No
[2023-04-01 14:41] LABS: ABG PO2 >420 mmHg (83-108); Allen Test Performed? No
--- NOTE | 2023-04-01 14:56 | P.ANPRN ---
Procedure Note - Anesthesia - ELISABET Intraop Pre Bypass ELISABET Intraop - Anesthesia Indication: Aortic stenosis + CAD Date of Procedure: 04/01/23 Pre-operative Diagnosis: + CAD Post-operative Diagnosis: Same Surgeon: Raman Duenas Left Ventricle: 50% Ejection Fraction: Normal Regional Wall Motion Abnormalities: None Left Ventricle Hypertrophy: Yes R. Ventricle Function: Normal Aortic Valve: Bileaflet w/ fusion RCC + NCC Aortic Stenosis: Severe (Peak 78 mmHg, Mean 46 mmHg) Aortic Regurgitation: Trace Mitral Stenosis: None Mitral Regurgitation: None Tricuspid Stenosis: None Tricuspid Regurgitation: None Pulmonic Stenosis: None Pulmonic Regurgitation: None R. Atrial Dilation: No R. Atrial PFO: No L. Atrial Dilation: No Aortic Dissection: No Aortic Calcification: None Plural Effusion: None - ELISABET Intraop Post Bypass ELISABET Intraop Post Bypass Procedure Performed: AVR + CABG Ejection Fraction: Normal Regional Wall Motion Abnormalities: None R. Ventricle Function: Normal Aortic Valve: Peak 19 mmHg, Mean 11 mmHg Mitral Valve: Mild MR Tricuspid: Unchanged Pulmonic: Unchanged Aortic Dissection: No (Left pleural effusion)
[2023-04-01] MEDS: SODIUM CHLORIDE 0.9% 1,000 ML IV SCH (15:03)
[2023-04-01 15:33] LABS: Glucose,Whole Blood 110 mg/dL (70-110)
--- NOTE | 2023-04-01 15:33 | P.OP ---
Date of Procedure: 04/01/23 Preoperative Diagnosis: Severe bicuspid aortic valve stenosis, coronary artery disease, hypertension, hyperlipidemia, obesity Postoperative Diagnosis: Same with fusion of the right and noncoronary cusps of the aortic valve Procedure(s) Performed: 1- Triple-vessel coronary artery bypass grafting using the totally skeletonized in situ left internal mammary artery to the diagonal artery in a svpx-[id number]-[id number] fashion then to the left anterior descending artery in an end-to-side fashion, reverse saphenous vein graft from the aorta to the ramus intermedius artery 2Aortic valve replacement using a 23 mm INSPIRIS pericardial bioprosthesis 3Exclusion of the left atrial appendage using a 35 mm AtriCure clip 4Bilateral greater saphenous vein endoscopic harvesting. 5-Intraoperative transesophageal echocardiogram and epi-aortic ultrasound 6Graft flow measurements using the JUNIQE system Implants: 23 mm inspiris pericardial bioprosthesis and a 35 mm Atriclip Anesthesia: TIM Surgeon: Raman Duenas Rasper Machine Operator #1: Sundeep Sage Pathology: other (aortic valve) Condition: stable Disposition: ICU Indications for Procedure: Severe symptomatic aortic valve stenosis and coronary artery disease Operative Findings: Bicuspid severely calcified aortic valve with fusion of the right and noncoronary cusp, good left internal mammary artery and good segment of vein used however the rest of the vein from both legs was non-usable, good targets and excellent graft flows Description of Procedure: Patient had a right internal jugular [place]-Irineo catheter and a right radial arterial line placed in the preoperative holding area. Subsequently patient was brought to the operating room where. Pressure was 15/5 and cardiac index was 2.2. Subsequently general endotracheal anesthesia was induced uneventfully. Liu catheter was inserted. The chest abdomen and both lower extremities were prepped and draped using ChloraPrep. Ioban was used to cover the skin. Patient received 2 g of cefazolin intravenously. Intraoperative transesophageal echocardiogram confirmed the preoperative finding of severe bicuspid aortic valve stenosis with mild aortic valve regurgitation and mild left ventricular dysfunction. Midline sternotomy was performed and the bone was quite dense. No bone wax was used. Left Eliot was elevated and the left internal mammary artery was harvested in a totally skeletonized fashion using low-level cautery. Patient was given 5000 units of heparin and the mammary artery was clipped distally before its bifurcation and transected had an excellent pulsatile flow in it and was around 2 mm in diameter. The left pleura was intentionally opened in this process and was drained with a 19-[place] Iam drain. There was a breach in the right pleura that was also drained with a 19-[place] Iam drain. Initially the right greater saphenous vein that subsequently the left greater saphenous vein were harvested endoscopically just obtain a short segment of reasonable conduit to be able to be used. This was done a fenestration of 2500 units of heparin. Leg incisions were closed over a drain. Mediastinal fat was transected between 2 ties and epi-aortic scanning revealed no protruding atheroma in the ascending aorta. Pericardium was opened in inverted T fashion and pericardial cradle was created. Findings included a mildly dilated aorta that was short and soft and mildly enla rged heart was what seems to be some apical thinning. After systemic heparinization and after placement of respective pledgeted pursestrings aortic cannulation the proximal arch with a 21-[place] soft flow cannula and venous cannulation via the right atrial appendage with a 3 stage 29- [place] cannula was performed. Antegrade as well as retrograde cardioplegia catheter were placed. Cardiopulmonary bypass was initiated and patient's temperature was allowed to drift down to 34C. With the heart empty and beating looked at the targets. We identified the left anterior descending artery which was soft in its mid to distal aspect the diagonal artery and the ramus intermedius artery which was intramyocardial. Aorta was clamped and during aortic clamping myocardial protection was achieved with initial dose of 600 of antegrade cold blood cardioplegia with adequate arrest at 400 mL followed by 600 of retrograde cold blood cardioplegia. All subsequent doses were given retrograde at 15 minutes interval. We started by excluding the left atrial appendage by deploying a 35 mm AtriCure clip at its base. The first distal anastomosis was between a good segment of saphenous vein that was mildly thickened and 1.7MM thin-walled ramus intermedius artery using Prolene 70 in continuous fashion. The second distal anastomosis was between the in situ skeletonized left internal mammary artery in situ in a rtcs-gy-elde fashion with the diagonal artery using Prolene 70 continuous fashion. The third and last distal anastomosis was between the end of the left internal mammary artery and the side of the mid left anterior descending artery which was around 1.7 m in diameter using Prolene 70 in continuous fashion. Attention was moved at this point at its performing the aortic valve replacement part. The aorta was opened and a transverse fashion around 1 cm above the sinotubular junction. Finding included a heavily calcified bicuspid aortic valve with fusion of the right and noncoronary cusps. The valve was excised and it took a while to achieve adequate decalcification of the annulus throughout. Thorough irrigation was 500 mL of cold saline was performed. The left coronary ostia was closer to the left non-commissure and the right ostium was in normal position. Subsequently a total of 16 sutures Tycron 20 pledgeted were placed in horizontal mattress fashion with the pledgets on the ventricular side. Thorough irrigation perform a more time. The annulus was sized to a 23 mm inspiris pericardial bioprosthesis which was brought into the field. All the sutures were passed symmetrically into its cuff and it seated nicely in a supra-annular position. All the needles were cut and the sutures tied using the core knot device. Thorough irrigation perform a more time. Subsequently the aortotomy was closed using 4-0 Prolene buttressed on each corner with a pledgeted and in 2 layers with the first layer being in a horizontal mattress fashion and the second layer in over and over technique. At this point rewarming was started as we punched out a 4 mm button of the ascending aorta and the proximal anastomosis completed between the vein graft and the aorta using a running Prolene 60. 600 mL warm blood were given as we constructed the proximal anastomosis. De-airing maneuvers were conducted and with the patient placed in Trendelenburg position and the aortic vent on maximum unclamping the aorta. Patient regained a slow junctional rhythm. All anastomosis appeared to be hemostatic as well as the aortotomy. After around 15 minutes of reperfusion we were able to wean off cardiac. Bypass without the need of any inotropic or vasopressor support. ELISABET had showed adequate de-airing and good LV function as well as good functioning aortic valve with no paravalvular leak. Patient had been given lidocaine and magnesium before unclamping and at this point old pump suckers were stopped as we gave test dose followed by full dose protamine. Decannulation followed. The venous cannulation site required reinforcement with a pledgeted 4-0 Prolene. 2 monopolar atrial pacer wires were affixed to the respective bridging of the right atrium and one bipolar ventricul ar pacing wire was driven via the inferior aspect of the right ventricle. We stopped his initially AV pacing that was eventually stopped and gave placed to a x-ray to junctional rhythm at around 80. Cardiac index was around 2.3 and PA pressure was 30/15. Again ELISABET was normal. Graft flow measurement showed excellent signal in both the vein and proximal left internal mammary artery conduits. 2 Iam drains 19-U[place]ayan were placed substernally. Mediastinal and pericardial fat were approximated over the aorta and the heart. After ensuring adequate hemostasis and after correct sponge instrument and needle count the sternum was closed using 5 [id number]-fs-[id number] Letha cables after interposing fibrillar between the sternal edges. Thorough irrigation with cefazolin followed. Vessel closure proceeded in layers. Skin glue was applied. Patient did not receive any blood bank product but received around 500 mL of Cell Saver blood. Distress her to the ICU at this point AV pace at 80 for opt imal hemodynamics and to suppress some PVCs with a baseline junctional rhythm and with a cardiac index of 2.4. Pressure was normal.
--- NOTE | 2023-04-01 15:45 | XR ---
EXAMINATION TYPE: XR chest 1V portable DATE OF EXAM: 04/01/2023 Comparison: 03/28/2023 Clinical History: 62-year-old male Post Operative Cardiac Surgery Findings: ET and NG tubes are satisfactory. NG tube sidehole at the level of the GE junction. Right IJ Gay-Mir z catheter at the main pulmonary outflow tract. Bilateral chest tubes and mediastinal drains are pres ent. Possible trace 3 mm right apical pneumothorax. Mild interstitial prominence. Patchy left basilar opacity. The heart is mildly enlarged with prosthetic aortic valve and post-CABG clips. Impression: 1. Postsurgical changes. Possible mild pulmonary vascular congestion. 2. Bilateral chest tubes. There appears to be a trace 3 mm right apical pneumothorax. 3. Patchy postsurgical atelectasis at the left base.
[2023-04-01 15:48] LABS: Basophils % (A) 0 %; Eosinophils % (A) 1 %; HCT 27.2 % (39.0-53.0); Lymphocytes # (A) 0.8 k/uL (1.0-4.8); Lymphocytes % (A) 15 %; MCH 30.5 pg (25.0-35.0); MCHC 33.7 g/dL (31.0-37.0); MCV 90.4 fL (80.0-100.0); Mean Platelet Volume 7.9; Monocytes # (A) 0.3 k/uL (0-1.0); Monocytes % (A) 6 %; Neutrophils # (A) 4.2 k/uL (1.3-7.7); Neutrophils % (A) 78 %; RBC 3.01 m/uL (4.30-5.90); RDW 13.2 % (11.5-15.5); WBC 5.4 k/uL (3.8-10.6)
[2023-04-01 15:55] LABS: Ionized Calcium 4.8 mg/dL (4.5-5.3)
[2023-04-01 15:55] LABS: ABG Base Excess -2.5 mmol/L; ABG HCO3 24 mmol/L (21-25); ABG Oxygen Saturation 99.7 % (94-97); ABG PCO2 46 mmHg (35-45); ABG PH 7.32 (7.35-7.45); ABG PO2 181 mmHg (83-108); ABG TCO2 25 mmol/L (19-24)
[2023-04-01 15:58] LABS: HGB 9.2 gm/dL (13.0-17.5)
[2023-04-01] MEDS ORDERED: IPRATROPIUM-ALBUTEROL 3 ML NEB INHALATION SCH (16:00)
[2023-04-01] MEDS ORDERED: HEPARIN SODIUM,PORCINE/PF 5,000 UNIT/0.5 ML SYRINGE SQ SCH (16:00)
[2023-04-01 16:04] LABS: Albumin 2.4 g/dL (3.5-5.0); Calcium 7.2 mg/dL (8.4-10.2); Magnesium 2.6 mg/dL (1.6-2.3); Total Bilirubin 0.6 mg/dL (0.2-1.3); Total Protein 4.2 g/dL (6.3-8.2)
[2023-04-01 16:11] LABS: Glucose,Whole Blood 107 mg/dL (70-110)
[2023-04-01 16:31] LABS: Platelet Count 73 k/uL (150-450)
[2023-04-01] MEDS: ALBUMIN HUMAN 5% 250 ML in EMPTY BAG 1 BAG IVPB PRN ×5 (16:31→20:36)
[2023-04-01 16:32] LABS: RBC Morphology Normal
[2023-04-01] MEDS: CALCIUM GLUCONATE IN NACL 1 GM in SALINE 1 100ML.BAG IVPB ONE ×2 (16:46→16:51)
[2023-04-01 17:18] LABS: Glucose,Whole Blood 111 mg/dL (70-110)
[2023-04-01 18:05] LABS: Glucose,Whole Blood 134 mg/dL (70-110)
[2023-04-01 18:24] LABS: Glucose,Whole Blood 137 mg/dL (70-110)
[2023-04-01 18:46] LABS: Basophils % (A) 0 %; Eosinophils % (A) 0 %; HCT 26.9 % (39.0-53.0); HGB 9.1 gm/dL (13.0-17.5); Lymphocytes # (A) 0.7 k/uL (1.0-4.8); Lymphocytes % (A) 11 %; MCH 30.7 pg (25.0-35.0); MCHC 33.8 g/dL (31.0-37.0); MCV 90.8 fL (80.0-100.0); Mean Platelet Volume 8.4; Monocytes # (A) 0.4 k/uL (0-1.0); Monocytes % (A) 6 %; Neutrophils % (A) 82 %; RBC 2.96 m/uL (4.30-5.90); RDW 13.4 % (11.5-15.5); WBC 6.1 k/uL (3.8-10.6)
[2023-04-01] MEDS: NOREPINEPHRINE 4 MG in SODIUM CHLORIDE 0.9% 250 ML IV SCH (18:50)
[2023-04-01 18:51] LABS: Glucose,Whole Blood 136 mg/dL (70-110)
[2023-04-01] MEDS: ACETAMINOPHEN IV (For NPO) 1,000 MG in EMPTY BAG 1 BAG IVPB SCH ×2 (19:00→23:41)
[2023-04-01 19:06] LABS: Platelet Count 83 k/uL (150-450)
[2023-04-01 19:11] LABS: INR 1.2 (<1.2); Partial Thromboplastin Time 30.1 sec (22.0-30.0); Prothrombin Time 12.2 sec (9.0-12.0)
[2023-04-01 19:59] LABS: Glucose,Whole Blood 138 mg/dL (70-110)
[2023-04-01 21:04] LABS: Glucose,Whole Blood 144 mg/dL (70-110)
[2023-04-01] MEDS: IPRATROPIUM-ALBUTEROL 3 ML NEB INHALATION SCH (21:08)
[2023-04-01 21:15] LABS: ABG HCO3 24 mmol/L (21-25); ABG Oxygen Saturation 97.1 % (94-97); ABG PCO2 42 mmHg (35-45); ABG PH 7.37 (7.35-7.45); ABG PO2 82 mmHg (83-108); ABG TCO2 26 mmol/L (19-24); Allen Test Performed? Yes
[2023-04-01] MEDS: MORPHINE SULFATE 4 MG/ML SYRINGE IVP PRN (21:31)
[2023-04-01 21:54] LABS: Glucose,Whole Blood 147 mg/dL (70-110)
[2023-04-01 22:07] LABS: Basophils % (A) 0 %; Eosinophils % (A) 0 %; HCT 23.9 % (39.0-53.0); Lymphocytes # (A) 0.4 k/uL (1.0-4.8); Lymphocytes % (A) 9 %; MCH 30.4 pg (25.0-35.0); MCHC 33.3 g/dL (31.0-37.0); MCV 91.3 fL (80.0-100.0); Mean Platelet Volume 8.7; Monocytes # (A) 0.2 k/uL (0-1.0); Monocytes % (A) 5 %; Neutrophils # (A) 3.9 k/uL (1.3-7.7); Neutrophils % (A) 84 %; RBC 2.62 m/uL (4.30-5.90); RDW 13.3 % (11.5-15.5); WBC 4.6 k/uL (3.8-10.6)
[2023-04-01 22:18] LABS: Platelet Count 72 k/uL (150-450)
[2023-04-01 23:08] LABS: Glucose,Whole Blood 138 mg/dL (70-110)
[2023-04-02 00:07] LABS: Glucose,Whole Blood 140 mg/dL (70-110)
[2023-04-02 01:06] LABS: Glucose,Whole Blood 128 mg/dL (70-110)
[2023-04-02 02:08] LABS: Glucose,Whole Blood 130 mg/dL (70-110)
[2023-04-02] MEDS: MORPHINE SULFATE 4 MG/ML SYRINGE IVP PRN ×2 (02:32→05:33)
[2023-04-02] MEDS: HYDROcodone/APAP 10-325MG 1 EACH TAB PO PRN ×6 (03:56→21:30)
[2023-04-02 04:06] LABS: Glucose,Whole Blood 128 mg/dL (70-110)
[2023-04-02 04:12] LABS: Basophils % (A) 0 %; Eosinophils % (A) 1 %; HCT 24.1 % (39.0-53.0); HGB 8.1 gm/dL (13.0-17.5); Lymphocytes # (A) 0.7 k/uL (1.0-4.8); Lymphocytes % (A) 13 %; MCH 30.8 pg (25.0-35.0); MCHC 33.8 g/dL (31.0-37.0); MCV 91.1 fL (80.0-100.0); Mean Platelet Volume 10.2; Monocytes # (A) 0.3 k/uL (0-1.0); Monocytes % (A) 6 %; Neutrophils # (A) 3.9 k/uL (1.3-7.7); Neutrophils % (A) 79 %; RBC 2.64 m/uL (4.30-5.90); RDW 13.4 % (11.5-15.5)
[2023-04-02 04:13] LABS: Platelet Count 75 k/uL (150-450)
[2023-04-02 04:15] LABS: Ionized Calcium 4.8 mg/dL (4.5-5.3)
[2023-04-02 04:24] LABS: Albumin 3.3 g/dL (3.5-5.0); Calcium 7.7 mg/dL (8.4-10.2); Magnesium 2.5 mg/dL (1.6-2.3); Potassium 4.3 mmol/L (3.5-5.1); Total Bilirubin 0.7 mg/dL (0.2-1.3); Total Protein 5.1 g/dL (6.3-8.2)
--- NOTE | 2023-04-02 06:11 | XR ---
EXAMINATION TYPE: XR chest 1V portable DATE OF EXAM: 04/02/2023 CLINICAL HISTORY: Difficulty breathing progress study. Postoperative cardiac surgery. TECHNIQUE: Single AP portable upright view of the chest is obtained. COMPARISON: Chest x-ray from one day earlier and older studies. FINDINGS: Interval extubation with removal of endotracheal and orogastric tubes. Stable right bakery pastry internship al jugular [place]-Irineo catheter. Stable bilateral chest tubes and mediastinal drainage catheter. Casa ing sternal wires along with left atrial appendage clipping and metallic aortic valve are all redemon strated. Low lung volumes and chronic parenchymal changes with left greater than right bibasilar opacities red emonstrated. No visualized pneumothorax. Mild cardiomegaly demonstrated. Osseous structures are intac t. IMPRESSION: Interval extubation. Persistent low lung volumes and mild cardiomegaly with left greater than right bibasilar atelectatic change. No pneumothorax identified with bilateral chest tubes in ambrocio ce.
[2023-04-02] MEDS: LEVOTHYROXINE 75 MCG TAB PO SCH (06:33)
[2023-04-02] MEDS: ALBUMIN HUMAN 5% 250 ML in EMPTY BAG 1 BAG IVPB PRN (06:40)
[2023-04-02] MEDS ORDERED: ACETAMINOPHEN TAB 325 MG TAB PO PRN (06:49)
[2023-04-02 06:51] LABS: Glucose,Whole Blood 118 mg/dL (70-110)
[2023-04-02] MEDS ORDERED: CALCIUM GLUCONATE IN NACL 2 GM in SALINE 1 100ML.BAG IVPB ONE (07:02)
--- NOTE | 2023-04-02 07:31 | P.PN ---
Subjective Progress Note Date: 04/02/23 Principal diagnosis: Severe bicuspid aortic valve stenosis with fusion of the right and noncoronary cusps of the aortic valve, coronary artery disease, unstable angina, reduced lef t ventricular systolic function. History of severe aortic stenosis, hypertension, hyperlipidemia, hypothyroid, previous tobacco dependence, recent cessation of marijuana use, covid in 2020 (remains unvaccinated), obesity, and family history of premature CAD POD #1 triple vessel coronary artery bypass grafting using the totally skeletonized in situ left internal mammary artery to the diagonal artery in a ziyk-hc-jorl fashion then to the left anterior descending artery in an end-to-side fashion, reverse saphenous vein graft from the aorta to the ramus intermedius artery, aortic valve replacement using a 23 mm Inspiris pericardial bioprosthesis, exclusion of the left atrial appendage using a 35 mm AtriCure clip, bilateral greater saphenous vein endoscopic harvesting, intraoperative transesophageal echocardiogram and epi-aortic ultrasound, graft flow measurements using the BangTango system Postoperative acute blood loss anemia and thrombocytopenia, expected given hemodilution and cardiopulmonary bypass bump along with preoperative thrombocytopenia The patient was seen and examined this morning sitting up in a recliner in the intensive care unit in no acute distress. He was successfully extubated last night at 21:27. He does complain of post surgical pain making it difficult to t jeff a deep breath. Remains in sinus rhythm, blood pressure soft on very low dose levofed, has received 1.5 L IV fluid bolus since surgery. Lab work, chest x-ray reviewed. Right internal jugular Hope/Cordis, right radial arterial line, mediastinal/left/right pleural chest tubes, right and left GERALD drains all remain. Patient does report it was difficult getting up from the bed to the recliner this morning, he did have some nausea last night and this morning. Remains on 4 L nasal cannula, barely able to achieve 500 mL on his incentive spirometry with poor effort, weak cough. Urine output remains stable. No other new concerns. Objective - Vital Signs Vital signs: Vital Signs Temp 97.7 F 04/01/23 15:30 Pulse 92 04/02/23 07:00 Resp 22 04/02/23 07:00 BP 117/68 04/01/23 06:15 Pulse Ox 95 04/02/23 07:00 FiO2 5 04/02/23 00:00 Intake & Output 04/01/23 04/02/23 04/02/23 18:59 06:59 18:59 Intake Total 2756.057 0543.196 329 Output Total 2375 1180 278 Balance -1258.981 651.196 51 Weight 94.1 kg 101.8 kg Intake: IV 1054.5 1476.0 329 ACETAMINOPHEN IV (For NPO 100 ) 1,000 mg In Empty Bag 1 bag @ 400 mls/hr IVPB Q6HR [facility] Rx#:[id number] Albumin Human 5% 500 ml 750 500 250 In Empty Bag 1 bag @ 250 mls/hr IVPB ONCE ONE Rx#: [id number] Cardiac Output (0.9 70 130 20 sodium chloride) Nitroglycerin-D5w Pmx 50 4.5 18.0 mg In Dextrose/Water 1 250ml.bag @ 5 MCG/MIN 1.5 mls/hr IV .Q24H [facility] Rx#: [id number] Pressure Bag (0.9 Sodium 27 108 9 Chloride) Sodium Chloride 0.9% 1, 150 570 50 000 ml @ 50 mls/hr IV . Q20H [facility] Rx#:[id number] ceFAZolin 2 gm In Sodium 50 Chloride 0.9% 50 ml @ 100 mls/hr IVPB ONCE ONE Rx# :[id number] Intake, IV Titration 61.519 55.196 Amount Dexmedetomidine/0.9% NaCl 10.705 25.212 (Pmx) 400 mcg In Empty Bag 1 bag @ Titrate IV . Q0M [facility] Rx#:[id number] Insulin Regular 100 unit 18.930 In Sodium Chloride 0.9% 100 ml @ Per Protocol IV .Q0M [facility] Rx#:[id number] Norepinephrine 4 mg In 11.054 Sodium Chloride 0.9% 250 ml @ 0.03 MCG/KG/MIN 10. 756 mls/hr IV .[id number] [facility] Rx#:[id number] propofoL 1,000 mg In 50.814 Empty Bag 1 bag @ Titrate IV .Q0M [facility] Rx#: [id number] Oral 300 Output: Chest Tube Drainage 270 400 248 Chest Tube Bilateral 125 150 30 Mediastinal Chest Tube Left Lateral 115 128 170 Chest Chest Tube Right Lateral 30 122 48 Chest Drainage 70 40 Left Calf 60 30 Right Gloria 10 10 Urine 985 740 30 Estimated Blood Loss 1050 Other: Voiding Method Indwelling Catheter Indwelling Catheter ABP, PAP, CO, CI - Last Documented Arterial Blood Pressure 102/46 Pulmonary Artery Pressure 29/5 Cardiac Output 6.8 Cardiac Index 3.2 - Exam CONSTITUTIONAL: Appears somewhat comfortable, cooperative, no acute distress RESPIRATORY: Lungs sounds diminished bilaterally. Respirations even, nonlabored. Currently on 4 L nasal cannula with oxygen saturation 94%. Able to achieve 500 mL on incentive spirometry. Weak cough. CARDIOVASCULAR: S1, S2 present. Regular rate and rhythm, sinus rhythm on telemetry. Sternum stable. Palpable peripheral pulses bilaterally. No edema present. No calf pain or tenderness noted. Heart hugger in place with patient demonstrating appropriate use. Antiembolism stockings, SCDs present. GASTROINTESTINAL: Abdomen soft, nontender, nondistended. Hypoactive bowel sounds present 4 quadrants. Tolerating minimal clear liquids. Positive belching, negative flatus GENITOURINARY: Liu present draining clear, yellow urine. Output overnight 30-80 mL per hour INTEGUMENTARY: Skin is warm and dry with evidence of good perfusion. Anterior chest incision well approximated and covered with dry intact dressing. Bilateral lower extremity EVH sites well approximated without redness, GERALD drains present with minimal output NEUROLOGIC: Cranial nerves II through XII intact MUSKULOSKELETAL: Able to move all extremities, strength equal bilaterally PSYCHIATRIC: Alert and oriented to person place and time, appropriate affect, intact judgment and insight INVASIVE LINES AND TUBES: Mediastinal/left/right pleural chest tubes present and connected to wall suction, no air leaks present. Mediastinal tube with 110 mL serosanguineous drainage overnight, 340 mL since surgery. Left pleural chest tube with 200 mL serosanguineous drainage overnight, 450 mL since surgery. Right pleural chest tube with 140 mL serosanguineous drainage overnight, 200 mL since surgery. A/V epicardial pacemaker wires present, connected to generator, backup rate 68 bpm. Right internal jugular Hope/Cordis, right radial arterial line present. Last CO/CI 6.8/3.2, PA 32/9, CVP 10. - Allied health notes Allied health notes reviewed: nursing - Labs CBC & Chem 7: 04/02/23 04:05 04/02/23 04:05 Labs: Abnormal Lab Results - Last 24 Hours (Table) 03/31/23 04/01/23 04/01/23 Range/Units 07:05 14:40 14:40 RBC 3.01 L (4.30-5.90) m/uL Hgb 9.2 L D (13.0-17.5) gm/dL Hct 27.2 L (39.0-53.0) % Plt Count 73 L D (150-450) k/uL Lymphocytes # 0.8 L (1.0-4.8) k/uL PT (9.0-12.0) sec INR (<1.2) APTT (22.0-30.0) sec ABG pH (7.35-7.45) ABG pCO2 (35-45) mmHg ABG pO2 (83-108) mmHg ABG Total CO2 (19-24) mmol/L ABG O2 Saturation (94-97) % Chloride 110 H (98-107) mmol/L Glucose (74-99) mg/dL POC Glucose (mg/dL) (70-110) mg/dL Calcium 7.2 L (8.4-10.2) mg/dL Magnesium 2.6 H (1.6-2.3) mg/dL AST (17-59) U/L Alkaline Phosphatase 33 L (38-126) U/L Total Protein 4.2 L (6.3-8.2) g/dL Albumin 2.4 L (3.5-5.0) g/dL Crossmatch See Detail 04/01/23 04/01/23 04/01/23 Range/Units 15:52 17:15 18:03 RBC (4.30-5.90) m/uL Hgb (13.0-17.5) gm/dL Hct (39.0-53.0) % Plt Count (150-450) k/uL Lymphocytes # (1.0-4.8) k/uL PT (9.0-12.0) sec INR (<1.2) APTT (22.0-30.0) sec ABG pH 7.32 L (7.35-7.45) ABG pCO2 46 H (35-45) mmHg ABG pO2 181 H (83-108) mmHg ABG Total CO2 25 H (19-24) mmol/L ABG O2 Saturation 99.7 H (94-97) % Chloride (98-107) mmol/L Glucose (74-99) mg/dL POC Glucose (mg/dL) 111 H 134 H (70-110) mg/dL Calcium (8.4-10.2) mg/dL Magnesium (1.6-2.3) mg/dL AST (17-59) U/L Alkaline Phosphatase (38-126) U/L Total Protein (6.3-8.2) g/dL Albumin (3.5-5.0) g/dL Crossmatch 04/01/23 04/01/23 04/01/23 Range/Units 18:20 18:22 18:45 RBC 2.96 L (4.30-5.90) m/uL Hgb 9.1 L (13.0-17.5) gm/dL Hct 26.9 L (39.0-53.0) % Plt Count 83 L (150-450) k/uL Lymphocytes # 0.7 L (1.0-4.8) k/uL PT 12.2 H (9.0-12.0) sec INR 1.2 H (<1.2) APTT 30.1 H (22.0-30.0) sec ABG pH (7.35-7.45) ABG pCO2 (35-45) mmHg ABG pO2 (83-108) mmHg ABG Total CO2 (19-24) mmol/L ABG O2 Saturation (94-97) % Chloride (98-107) mmol/L Glucose (74-99) mg/dL POC Glucose (mg/dL) 137 H (70-110) mg/dL Calcium (8.4-10.2) mg/dL Magnesium (1.6-2.3) mg/dL AST (17-59) U/L Alkaline Phosphatase (38-126) U/L Total Protein (6.3-8.2) g/dL Albumin (3.5-5.0) g/dL Crossmatch 04/01/23 04/01/23 04/01/23 Range/Units 18:49 19:58 21:01 RBC (4.30-5.90) m/uL Hgb (13.0-17.5) gm/dL Hct (39.0-53.0) % Plt Count (150-450) k/uL Lymphocytes # (1.0-4.8) k/uL PT (9.0-12.0) sec INR (<1.2) APTT (22.0-30.0) sec ABG pH (7.35-7.45) ABG pCO2 (35-45) mmHg ABG pO2 (83-108) mmHg ABG Total CO2 (19-24) mmol/L ABG O2 Saturation (94-97) % Chloride (98-107) mmol/L Glucose (74-99) mg/dL POC Glucose (mg/dL) 136 H 138 H 144 H (70-110) mg/dL Calcium (8.4-10.2) mg/dL Magnesium (1.6-2.3) mg/dL AST (17-59) U/L Alkaline Phosphatase (38-126) U/L Total Protein (6.3-8.2) g/dL Albumin (3.5-5.0) g/dL Crossmatch 04/01/23 04/01/23 04/01/23 Range/Units 21:13 21:50 21:52 RBC 2.62 L (4.30-5.90) m/uL Hgb 8.0 L (13.0-17.5) gm/dL Hct 23.9 L (39.0-53.0) % Plt Count 72 L (150-450) k/uL Lymphocytes # 0.4 L (1.0-4.8) k/uL PT (9.0-12.0) sec INR (<1.2) APTT (22.0-30.0) sec ABG pH (7.35-7.45) ABG pCO2 (35-45) mmHg ABG pO2 82 L (83-108) mmHg ABG Total CO2 26 H (19-24) mmol/L ABG O2 Saturation 97.1 H (94-97) % Chloride (98-107) mmol/L Glucose (74-99) mg/dL POC Glucose (mg/dL) 147 H (70-110) mg/dL Calcium (8.4-10.2) mg/dL Magnesium (1.6-2.3) mg/dL AST (17-59) U/L Alkaline Phosphatase (38-126) U/L Total Protein (6.3-8.2) g/dL Albumin (3.5-5.0) g/dL Crossmatch 04/01/23 04/02/23 04/02/23 Range/Units 23:07 00:06 01:03 RBC (4.30-5.90) m/uL Hgb (13.0-17.5) gm/dL Hct (39.0-53.0) % Plt Count (150-450) k/uL Lymphocytes # (1.0-4.8) k/uL PT (9.0-12.0) sec INR (<1.2) APTT (22.0-30.0) sec ABG pH (7.35-7.45) ABG pCO2 (35-45) mmHg ABG pO2 (83-108) mmHg ABG Total CO2 (19-24) mmol/L ABG O2 Saturation (94-97) % Chloride (98-107) mmol/L Glucose (74-99) mg/dL POC Glucose (mg/dL) 138 H 140 H 128 H (70-110) mg/dL Calcium (8.4-10.2) mg/dL Magnesium (1.6-2.3) mg/dL AST (17-59) U/L Alkaline Phosphatase (38-126) U/L Total Protein (6.3-8.2) g/dL Albumin (3.5-5.0) g/dL Crossmatch 04/02/23 04/02/23 04/02/23 Range/Units 02:06 04:03 04:05 RBC 2.64 L (4.30-5.90) m/uL Hgb 8.1 L (13.0-17.5) gm/dL Hct 24.1 L (39.0-53.0) % Plt Count 75 L (150-450) k/uL Lymphocytes # 0.7 L (1.0-4.8) k/uL PT (9.0-12.0) sec INR (<1.2) APTT (22.0-30.0) sec ABG pH (7.35-7.45) ABG pCO2 (35-45) mmHg ABG pO2 (83-108) mmHg ABG Total CO2 (19-24) mmol/L ABG O2 Saturation (94-97) % Chloride (98-107) mmol/L Glucose (74-99) mg/dL POC Glucose (mg/dL) 130 H 128 H (70-110) mg/dL Calcium (8.4-10.2) mg/dL Magnesium (1.6-2.3) mg/dL AST (17-59) U/L Alkaline Phosphatase (38-126) U/L Total Protein (6.3-8.2) g/dL Albumin (3.5-5.0) g/dL Crossmatch 04/02/23 04/02/23 Range/Units 04:05 06:50 RBC (4.30-5.90) m/uL Hgb (13.0-17.5) gm/dL Hct (39.0-53.0) % Plt Count (150-450) k/uL Lymphocytes # (1.0-4.8) k/uL PT (9.0-12.0) sec INR (<1.2) APTT (22.0-30.0) sec ABG pH (7.35-7.45) ABG pCO2 (35-45) mmHg ABG pO2 (83-108) mmHg ABG Total CO2 (19-24) mmol/L ABG O2 Saturation (94-97) % Chloride 108 H (98-107) mmol/L Glucose 114 H (74-99) mg/dL POC Glucose (mg/dL) 118 H (70-110) mg/dL Calcium 7.7 L (8.4-10.2) mg/dL Magnesium 2.5 H (1.6-2.3) mg/dL AST 74 H (17-59) U/L Alkaline Phosphatase 31 L (38-126) U/L Total Protein 5.1 L (6.3-8.2) g/dL Albumin 3.3 L (3.5-5.0) g/dL Crossmatch - Imaging and Cardiology Chest x-ray: report reviewed, image reviewed Assessment and Plan Assessment: Severe bicuspid aortic valve stenosis with fusion of the right and noncoronary cusps of the aortic valve, status post bioprosthetic aortic valve replacement Coronary artery disease, unstable angina, status post three-vessel CABG Reduced left ventricular systolic function, EF 45-50% Hypertension Hyperlipidemia, treated, chol 148, LDL 84.5 Hypothyroid, TSH 2.39 Previous tobacco dependence, FEV 1 69% Recent cessation of marijuana use Covid in 2020 (remains unvaccinated) Obesity Family history of premature CAD Postoperative acute blood loss anemia and thrombocytopenia, expected given hem odilution and cardiopulmonary bypass bump along with preoperative thrombocytopenia Plan: Continue to maximize medical therapy with low dose ASA, statin, Plavix, beta nilson. Will increase beta nilson therapy as tolerated. Discontinue IV nitro Wean levo as tolerated. Will give concentrated albumin x 1 Wean oxygen as tolerated. Encourage use of incentive spirometry 10 times every hour while awake. Bronchodilators per pulmonology Will monitor daily labs and x-rays. Electrolyte replacement per protocol Increase activity, ambulate as tolerated. PT/OT/cardiac rehab consulted GI/DVT prophylaxis Pain control per current medication regimen. No Toradol due to thrombocytopenia Insulin management per internal medicine. Patient is not diabetic, preoperative hemoglobin A1c 6% Will discontinue Hope at noon. Connect Cordis to continuous CVP monitoring Will discontinue GERALD drains Continue chest tubes for another 24 hours Continue Liu catheter for the 24 hours for strict accurate intake and output Daily weights More recommendations to follow
[2023-04-02] MEDS: IPRATROPIUM-ALBUTEROL 3 ML NEB INHALATION SCH ×4 (08:10→20:17)
[2023-04-02 08:14] LABS: Glucose,Whole Blood 130 mg/dL (70-110)
[2023-04-02] MEDS ORDERED: ALBUMIN HUMAN 25% 50 ML in EMPTY BAG 1 BAG IVPB ONE ×2 (08:30→16:05)
[2023-04-02] MEDS ORDERED: bisacodyL 10 MG SUPP RECTAL PRN (09:00)
[2023-04-02] MEDS ORDERED: PANTOPRAZOLE 40 MG/10 ML VIAL IVP SCH (09:00)
[2023-04-02] MEDS ORDERED: ASPIRIN 325 MG TAB PO SCH (09:00)
[2023-04-02] MEDS: CLOPIDOGREL 75 MG TAB PO SCH (09:24)
[2023-04-02] MEDS: METOPROLOL TARTRATE 12.5 MG TAB PO SCH ×2 (09:24→20:29)
[2023-04-02] MEDS: ATORVASTATIN 40 MG TAB PO SCH (09:24)
[2023-04-02] MEDS: ASPIRIN 81 MG PO SCH (09:24)
[2023-04-02 09:42] LABS: Glucose,Whole Blood 126 mg/dL (70-110)
[2023-04-02 10:16] LABS: Glucose,Whole Blood 110 mg/dL (70-110)
--- NOTE | 2023-04-02 11:07 | P.PN ---
Subjective Progress Note Date: 04/02/23 Principal diagnosis: Coronary disease/aortic stenosis. Pulmonary consultation dated 03/31/2023. This is a pleasant 62-year-old male that we are currently evaluating, in room 361, for possible bypass grafting, and aortic valve replacement, to be done on April 01. We were consulted for preoperative evaluation. The patient was admitted to the hospital on March 28. The cardiac catheterization done on the same day revealed significant coronary disease, as well as significant aortic stenosis. The patient was seen by cardiothoracic surgery, and surgeries plan for tomorrow. Currently, the patient's on room air. Is not receiving any IV fluids. He has no history of any lung disease, but did smoke when he was very young for a year or 2. He denies any shortness of breath, cough, wheezing, chest tightness, or phlegm production. His medical history includes unstable angina, hypothyroidism, hypertension, and hyperlipidemia. The patient's home medications included aspirin, Synthroid, losartan/hydrochlorothiazide, metoprolol, sublingual nitroglycerin, and Crestor. Current laboratory data includes a white count of 5.6, hemoglobin 14.9, hematocrit 45.1, and a platelet count of 149,000. Sodium, potassium, chloride, CO2, anion gap, BUN and creatinine, all normal. So was the rest of the comprehensive metabolic profile. Chest x-ray to my eye, was normal. Progress note dated 04/02/2023. 62-year-old male, postop day #1, status post three-vessel bypass grafting, aorti c valve replacement, and left atrial appendage ligation. The patient had surgery yesterday. The patient is currently resting comfortably in the intensive care unit, room 267. Other than for pain at the surgical site, he appears to be doing relatively well. The patient's currently on 4 L of oxygen. He is getting saline at 50 mL an hour, norepinephrine at 2 mcg/m, and insulin drip at 1 unit an hour. White count 5, hemoglobin 8.1, hematocrit 24.1, and platelet count 75,000. Sodium 139, potassium 4.3, chlorides 108, CO2 25, BUN 18, and creatinine 1.17. Albumin is 3.3. Magnesium 2.5. Chest x-ray shows interval extubation, low lung volumes, cardiomegaly, and some bibasilar atelectasis. Objective - Vital Signs Vital signs: Vital Signs Temp 100.6 F H 04/02/23 08:00 Pulse 105 H 04/02/23 10:00 Resp 18 04/02/23 10:00 BP 92/60 04/02/23 08:00 Pulse Ox 94 L 04/02/23 10:00 FiO2 5 04/02/23 08:00 Intake & Output 04/01/23 04/02/23 04/02/23 18:59 06:59 18:59 Intake Total 9432.239 4229.196 599.393 Output Total 2375 1180 393 Balance -1258.981 651.196 206.393 Weight 94.1 kg 101.8 kg Intake: IV 1054.5 1476.0 576 ACETAMINOPHEN IV (For NPO 100 ) 1,000 mg In Empty Bag 1 bag @ 400 mls/hr IVPB Q6HR [facility] Rx#:[id number] Albumin Human 5% 500 ml 750 500 250 In Empty Bag 1 bag @ 250 mls/hr IVPB ONCE ONE Rx#: [id number] Cardiac Output (0.9 70 130 40 sodium chloride) Nitroglycerin-D5w Pmx 50 4.5 18.0 mg In Dextrose/Water 1 250ml.bag @ 5 MCG/MIN 1.5 mls/hr IV .Q24H [facility] Rx#: [id number] Pressure Bag (0.9 Sodium 27 108 36 Chloride) Sodium Chloride 0.9% 1, 150 570 200 000 ml @ 50 mls/hr IV . Q20H [facility] Rx#:[id number] algumin 25% 50 ceFAZolin 2 gm In Sodium 50 Chloride 0.9% 50 ml @ 100 mls/hr IVPB ONCE ONE Rx# :[id number] Intake, IV Titration 61.519 55.196 23.393 Amount Dexmedetomidine/0.9% NaCl 10.705 25.212 (Pmx) 400 mcg In Empty Bag 1 bag @ Titrate IV . Q0M [facility] Rx#:[id number] Insulin Regular 100 unit 18.930 3.198 In Sodium Chloride 0.9% 100 ml @ Per Protocol IV .Q0M [facility] Rx#:[id number] Norepinephrine 4 mg In 11.054 20.195 Sodium Chloride 0.9% 250 ml @ 0.03 MCG/KG/MIN 10. 756 mls/hr IV .[id number] [facility] Rx#:[id number] propofoL 1,000 mg In 50.814 Empty Bag 1 bag @ Titrate IV .Q0M [facility] Rx#: [id number] Oral 300 Output: Chest Tube Drainage 270 400 268 Chest Tube Bilateral 125 150 30 Mediastinal Chest Tube Left Lateral 115 128 170 Chest Chest Tube Right Lateral 30 122 68 Chest Drainage 70 40 Left Calf 60 30 Right Gloria 10 10 Urine 985 740 125 Estimated Blood Loss 1050 Other: Voiding Method Indwelling Catheter Indwelling Catheter Indwelling Catheter ABP, PAP, CO, CI - Last Documented Arterial Blood Pressure 112/47 Pulmonary Artery Pressure 33/16 Cardiac Output 4.9 Cardiac Index 2.3 - Exam No acute distress, oriented 3. No conversational dyspnea or use of accessory muscles. Currently on 4 L of oxygen. HEENT examination is grossly unremarkable. Mucous membranes are moist. No oral lesions. Neck supple. Full range of motion. No adenopathy thyromegaly or neck vein di stention. Cardiovascular examination reveals regular rhythm rate. S1-S2 normal. No S3 or S4. No discernible murmur noted. Heart rate 105 bpm. Lungs reveal clear breath sounds. Breath sounds are equal bilaterally. No adventitious lung sounds including wheezes rhonchi or crackles. 4 L saturation is 94%. Abdomen soft bowel sounds are heard. No masses or tenderness. Extremities are intact. No cyanosis clubbing or edema. Skin is without rash or lesion. Neurologic examination is brief but nonfocal. - Labs CBC & Chem 7: 04/02/23 04:05 04/02/23 04:05 Labs: Abnormal Lab Results - Last 24 Hours (Table) 03/31/23 04/01/23 04/01/23 Range/Units 07:05 14:40 14:40 RBC 3.01 L (4.30-5.90) m/uL Hgb 9.2 L D (13.0-17.5) gm/dL Hct 27.2 L (39.0-53.0) % Plt Count 73 L D (150-450) k/uL Lymphocytes # 0.8 L (1.0-4.8) k/uL PT (9.0-12.0) sec INR (<1.2) APTT (22.0-30.0) sec ABG pH (7.35-7.45) ABG pCO2 (35-45) mmHg ABG pO2 (83-108) mmHg ABG Total CO2 (19-24) mmol/L ABG O2 Saturation (94-97) % Chloride 110 H (98-107) mmol/L Glucose (74-99) mg/dL POC Glucose (mg/dL) (70-110) mg/dL Calcium 7.2 L (8.4-10.2) mg/dL Magnesium 2.6 H (1.6-2.3) mg/dL AST (17-59) U/L Alkaline Phosphatase 33 L (38-126) U/L Total Protein 4.2 L (6.3-8.2) g/dL Albumin 2.4 L (3.5-5.0) g/dL Crossmatch See Detail 04/01/23 04/01/23 04/01/23 Range/Units 15:52 17:15 18:03 RBC (4.30-5.90) m/uL Hgb (13.0-17.5) gm/dL Hct (39.0-53.0) % Plt Count (150-450) k/uL Lymphocytes # (1.0-4.8) k/uL PT (9.0-12.0) sec INR (<1.2) APTT (22.0-30.0) sec ABG pH 7.32 L (7.35-7.45) ABG pCO2 46 H (35-45) mmHg ABG pO2 181 H (83-108) mmHg ABG Total CO2 25 H (19-24) mmol/L ABG O2 Saturation 99.7 H (94-97) % Chloride (98-107) mmol/L Glucose (74-99) mg/dL POC Glucose (mg/dL) 111 H 134 H (70-110) mg/dL Calcium (8.4-10.2) mg/dL Magnesium (1.6-2.3) mg/dL AST (17-59) U/L Alkaline Phosphatase (38-126) U/L Total Protein (6.3-8.2) g/dL Albumin (3.5-5.0) g/dL Crossmatch 04/01/23 04/01/23 04/01/23 Range/Units 18:20 18:22 18:45 RBC 2.96 L (4.30-5.90) m/uL Hgb 9.1 L (13.0-17.5) gm/dL Hct 26.9 L (39.0-53.0) % Plt Count 83 L (150-450) k/uL Lymphocytes # 0.7 L (1.0-4.8) k/uL PT 12.2 H (9.0-12.0) sec INR 1.2 H (<1.2) APTT 30.1 H (22.0-30.0) sec ABG pH (7.35-7.45) ABG pCO2 (35-45) mmHg ABG pO2 (83-108) mmHg ABG Total CO2 (19-24) mmol/L ABG O2 Saturation (94-97) % Chloride (98-107) mmol/L Glucose (74-99) mg/dL POC Glucose (mg/dL) 137 H (70-110) mg/dL Calcium (8.4-10.2) mg/dL Magnesium (1.6-2.3) mg/dL AST (17-59) U/L Alkaline Phosphatase (38-126) U/L Total Protein (6.3-8.2) g/dL Albumin (3.5-5.0) g/dL Crossmatch 04/01/23 04/01/23 04/01/23 Range/Units 18:49 19:58 21:01 RBC (4.30-5.90) m/uL Hgb (13.0-17.5) gm/dL Hct (39.0-53.0) % Plt Count (150-450) k/uL Lymphocytes # (1.0-4.8) k/uL PT (9.0-12.0) sec INR (<1.2) APTT (22.0-30.0) sec ABG pH (7.35-7.45) ABG pCO2 (35-45) mmHg ABG pO2 (83-108) mmHg ABG Total CO2 (19-24) mmol/L ABG O2 Saturation (94-97) % Chloride (98-107) mmol/L Glucose (74-99) mg/dL POC Glucose (mg/dL) 136 H 138 H 144 H (70-110) mg/dL Calcium (8.4-10.2) mg/dL Magnesium (1.6-2.3) mg/dL AST (17-59) U/L Alkaline Phosphatase (38-126) U/L Total Protein (6.3-8.2) g/dL Albumin (3.5-5.0) g/dL Crossmatch 04/01/23 04/01/23 04/01/23 Range/Units 21:13 21:50 21:52 RBC 2.62 L (4.30-5.90) m/uL Hgb 8.0 L (13.0-17.5) gm/dL Hct 23.9 L (39.0-53.0) % Plt Count 72 L (150-450) k/uL Lymphocytes # 0.4 L (1.0-4.8) k/uL PT (9.0-12.0) sec INR (<1.2) APTT (22.0-30.0) sec ABG pH (7.35-7.45) ABG pCO2 (35-45) mmHg ABG pO2 82 L (83-108) mmHg ABG Total CO2 26 H (19-24) mmol/L ABG O2 Saturation 97.1 H (94-97) % Chloride (98-107) mmol/L Glucose (74-99) mg/dL POC Glucose (mg/dL) 147 H (70-110) mg/dL Calcium (8.4-10.2) mg/dL Magnesium (1.6-2.3) mg/dL AST (17-59) U/L Alkaline Phosphatase (38-126) U/L Total Protein (6.3-8.2) g/dL Albumin (3.5-5.0) g/dL Crossmatch 04/01/23 04/02/23 04/02/23 Range/Units 23:07 00:06 01:03 RBC (4.30-5.90) m/uL Hgb (13.0-17.5) gm/dL Hct (39.0-53.0) % Plt Count (150-450) k/uL Lymphocytes # (1.0-4.8) k/uL PT (9.0-12.0) sec INR (<1.2) APTT (22.0-30.0) sec ABG pH (7.35-7.45) ABG pCO2 (35-45) mmHg ABG pO2 (83-108) mmHg ABG Total CO2 (19-24) mmol/L ABG O2 Saturation (94-97) % Chloride (98-107) mmol/L Glucose (74-99) mg/dL POC Glucose (mg/dL) 138 H 140 H 128 H (70-110) mg/dL Calcium (8.4-10.2) mg/dL Magnesium (1.6-2.3) mg/dL AST (17-59) U/L Alkaline Phosphatase (38-126) U/L Total Protein (6.3-8.2) g/dL Albumin (3.5-5.0) g/dL Crossmatch 04/02/23 04/02/23 04/02/23 Range/Units 02:06 04:03 04:05 RBC 2.64 L (4.30-5.90) m/uL Hgb 8.1 L (13.0-17.5) gm/dL Hct 24.1 L (39.0-53.0) % Plt Count 75 L (150-450) k/uL Lymphocytes # 0.7 L (1.0-4.8) k/uL PT (9.0-12.0) sec INR (<1.2) APTT (22.0-30.0) sec ABG pH (7.35-7.45) ABG pCO2 (35-45) mmHg ABG pO2 (83-108) mmHg ABG Total CO2 (19-24) mmol/L ABG O2 Saturation (94-97) % Chloride (98-107) mmol/L Glucose (74-99) mg/dL POC Glucose (mg/dL) 130 H 128 H (70-110) mg/dL Calcium (8.4-10.2) mg/dL Magnesium (1.6-2.3) mg/dL AST (17-59) U/L Alkaline Phosphatase (38-126) U/L Total Protein (6.3-8.2) g/dL Albumin (3.5-5.0) g/dL Crossmatch 04/02/23 04/02/23 04/02/23 Range/Units 04:05 06:50 08:12 RBC (4.30-5.90) m/uL Hgb (13.0-17.5) gm/dL Hct (39.0-53.0) % Plt Count (150-450) k/uL Lymphocytes # (1.0-4.8) k/uL PT (9.0-12.0) sec INR (<1.2) APTT (22.0-30.0) sec ABG pH (7.35-7.45) ABG pCO2 (35-45) mmHg ABG pO2 (83-108) mmHg ABG Total CO2 (19-24) mmol/L ABG O2 Saturation (94-97) % Chloride 108 H (98-107) mmol/L Glucose 114 H (74-99) mg/dL POC Glucose (mg/dL) 118 H 130 H (70-110) mg/dL Calcium 7.7 L (8.4-10.2) mg/dL Magnesium 2.5 H (1.6-2.3) mg/dL AST 74 H (17-59) U/L Alkaline Phosphatase 31 L (38-126) U/L Total Protein 5.1 L (6.3-8.2) g/dL Albumin 3.3 L (3.5-5.0) g/dL Crossmatch 04/02/23 Range/Units 09:41 RBC (4.30-5.90) m/uL Hgb (13.0-17.5) gm/dL Hct (39.0-53.0) % Plt Count (150-450) k/uL Lymphocytes # (1.0-4.8) k/uL PT (9.0-12.0) sec INR (<1.2) APTT (22.0-30.0) sec ABG pH (7.35-7.45) ABG pCO2 (35-45) mmHg ABG pO2 (83-108) mmHg ABG Total CO2 (19-24) mmol/L ABG O2 Saturation (94-97) % Chloride (98-107) mmol/L Glucose (74-99) mg/dL POC Glucose (mg/dL) 126 H (70-110) mg/dL Calcium (8.4-10.2) mg/dL Magnesium (1.6-2.3) mg/dL AST (17-59) U/L Alkaline Phosphatase (38-126) U/L Total Protein (6.3-8.2) g/dL Albumin (3.5-5.0) g/dL Crossmatch Assessment and Plan Assessment: Coronary artery disease, and severe aortic stenosis, with anticipated bypass grafting, and aortic valve replacement, April 01. Postop day #1, status post three-vessel bypass grafting, aortic valve replacement, and left atrial appendage ligation. Routine postoperative ventilator management. No significant intrinsic pulmonary disease. History of hypertension. History of hyperlipidemia. History of hypothyroidism. Unstable angina. Plan: Plan dated 03/31/2023. The patient was seen today and evaluated. Labs, x-rays, and medications are reviewed. The patient appears not to have any intrinsic pulmonary disease. Coleen contreras was very young, for just a year or so. 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 The patient is scheduled to undergo bypass grafting, and aortic valve replacement, April 01. I did explain our role, and his care, including helping him be extricated or liberated from mechanical ventilation as soon as possible, as well as seeing him during his hospital stay, and making sure that his lungs are healthy, and he doesn't develop pleural effusion, pneumonia, or lobar collapse/atelectasis. We also mentioned to the patient that the incentive spirometer, would be very important, in his postoperative care. Plan dated 04/02/2023. The patient was not seen yesterday as he was in the operating room. Today is postoperative day #1. The patient had a three-vessel bypass grafting, aortic valve replacement, and left atrial appendage ligation. The patient's currently on saline at 50 mL an hour, and insulin drip, and is still receiving norepinephrine for blood pressure support. Labs, x-rays, and medications are reviewed. Prognosis is guarded. We encourage the patient to deep breathe, cough, and clear secretions. We also encouraged the patient has seen some spirometer every hour. We will continue to follow, and make recommendations along the way. Time with Patient: Greater than 30
[2023-04-02 11:17] LABS: Glucose,Whole Blood 148 mg/dL (70-110)
--- NOTE | 2023-04-02 11:38 | P.PN ---
Subjective Progress Note Date: 04/02/23 This is Sb Espinoza NP, I'm dictating on behalf of Dr. Britt's H&P and A&P. Patient was interviewed and examined. Patient is a pleasant 63-year-old male who is postop day 1 triple bypass with aortic valve replacement. Patient reports that he is doing okay today. He does report chest pain secondary to sternotomy. Patient was recently started on Alstead and states that is helping. Patient is demonstrating intermittent left bundle branch block with elevated heart rate on EKG. We will continue to monitor this. Patient otherwise appears stable, with no other major complaints. He does report pain with deep breathing, he is using his incentive spirometer. He was examined sitting in a chair. GENERAL: Well-appearing, well-nourished and in no acute distress. NECK: Supple without JVD or thyromegaly. LUNGS: Breath sounds clear to auscultation bilaterally. Respiration equal and unlabored. No wheezes, rales or rhonchi. HEART: Regular rate and rhythm without murmurs, rubs or gallops. S1 and S2 heard. EXTREMITIES: Normal range of motion, no edema. No clubbing or cyanosis. Peripheral pulses intact and strong. VITALS: Temp 100.6, heart rate 96, respirations 17, blood pressure 118/49, O2 saturation 93% on 4 L TELEMETRY: Normal sinus rhythm LABS: White count 5.0, hemoglobin 8.1, platelets 75, sodium 139, potassium 4.3, B1 18, creatinine 1.17, magnesium 2.5 IMPRESSION: 1. Status post triple vessel bypass with aortic valve replacement 2. Coronary artery disease 3. Hypertension 4. Hyperlipidemia 5. Hypothyroidism 6. Remote history of tobacco use, marijuana use PLAN: Continue current management. Further recommendations based on patient's clinical course. Objective - Vital Signs Vital signs: Vital Signs Temp 100.6 F H 04/02/23 08:00 Pulse 103 H 04/02/23 11:15 Resp 21 04/02/23 11:15 BP 92/60 04/02/23 08:00 Pulse Ox 93 L 04/02/23 11:15 FiO2 5 04/02/23 08:00 Intake & Output 04/01/23 04/02/23 04/02/23 18:59 06:59 18:59 Intake Total 2657.567 9616.196 658.393 Output Total 2375 1180 523 Balance -1258.981 651.196 135.393 Weight 94.1 kg 101.8 kg Intake: IV 1054.5 1476.0 635 ACETAMINOPHEN IV (For NPO 100 ) 1,000 mg In Empty Bag 1 bag @ 400 mls/hr IVPB Q6HR [facility] Rx#:[id number] Albumin Human 5% 500 ml 750 500 250 In Empty Bag 1 bag @ 250 mls/hr IVPB ONCE ONE Rx#: [id number] Cardiac Output (0.9 70 130 40 sodium chloride) Nitroglycerin-D5w Pmx 50 4.5 18.0 mg In Dextrose/Water 1 250ml.bag @ 5 MCG/MIN 1.5 mls/hr IV .Q24H [facility] Rx#: [id number] Pressure Bag (0.9 Sodium 27 108 45 Chloride) Sodium Chloride 0.9% 1, 150 570 250 000 ml @ 50 mls/hr IV . Q20H [facility] Rx#:[id number] algumin 25% 50 ceFAZolin 2 gm In Sodium 50 Chloride 0.9% 50 ml @ 100 mls/hr IVPB ONCE ONE Rx# :[id number] Intake, IV Titration 61.519 55.196 23.393 Amount Dexmedetomidine/0.9% NaCl 10.705 25.212 (Pmx) 400 mcg In Empty Bag 1 bag @ Titrate IV . Q0M [facility] Rx#:[id number] Insulin Regular 100 unit 18.930 3.198 In Sodium Chloride 0.9% 100 ml @ Per Protocol IV .Q0M [facility] Rx#:[id number] Norepinephrine 4 mg In 11.054 20.195 Sodium Chloride 0.9% 250 ml @ 0.03 MCG/KG/MIN 10. 756 mls/hr IV .[id number] [facility] Rx#:[id number] propofoL 1,000 mg In 50.814 Empty Bag 1 bag @ Titrate IV .Q0M [facility] Rx#: [id number] Oral 300 Output: Chest Tube Drainage 270 400 348 Chest Tube Bilateral 125 150 50 Mediastinal Chest Tube Left Lateral 115 128 210 Chest Chest Tube Right Lateral 30 122 88 Chest Drainage 70 40 Left Calf 60 30 Right Gloria 10 10 Urine 985 740 175 Estimated Blood Loss 1050 Other: Voiding Method Indwelling Catheter Indwelling Catheter Indwelling Catheter ABP, PAP, CO, CI - Last Documented Arterial Blood Pressure 137/53 Pulmonary Artery Pressure 34/12 Cardiac Output 4.9 Cardiac Index 2.3 - Labs CBC & Chem 7: 04/02/23 04:05 04/02/23 04:05 Labs: Abnormal Lab Results - Last 24 Hours (Table) 03/31/23 04/01/23 04/01/23 Range/Units 07:05 14:40 14:40 RBC 3.01 L (4.30-5.90) m/uL Hgb 9.2 L D (13.0-17.5) gm/dL Hct 27.2 L (39.0-53.0) % Plt Count 73 L D (150-450) k/uL Lymphocytes # 0.8 L (1.0-4.8) k/uL PT (9.0-12.0) sec INR (<1.2) APTT (22.0-30.0) sec ABG pH (7.35-7.45) ABG pCO2 (35-45) mmHg ABG pO2 (83-108) mmHg ABG Total CO2 (19-24) mmol/L ABG O2 Saturation (94-97) % Chloride 110 H (98-107) mmol/L Glucose (74-99) mg/dL POC Glucose (mg/dL) (70-110) mg/dL Calcium 7.2 L (8.4-10.2) mg/dL Magnesium 2.6 H (1.6-2.3) mg/dL AST (17-59) U/L Alkaline Phosphatase 33 L (38-126) U/L Total Protein 4.2 L (6.3-8.2) g/dL Albumin 2.4 L (3.5-5.0) g/dL Crossmatch See Detail 04/01/23 04/01/23 04/01/23 Range/Units 15:52 17:15 18:03 RBC (4.30-5.90) m/uL Hgb (13.0-17.5) gm/dL Hct (39.0-53.0) % Plt Count (150-450) k/uL Lymphocytes # (1.0-4.8) k/uL PT (9.0-12.0) sec INR (<1.2) APTT (22.0-30.0) sec ABG pH 7.32 L (7.35-7.45) ABG pCO2 46 H (35-45) mmHg ABG pO2 181 H (83-108) mmHg ABG Total CO2 25 H (19-24) mmol/L ABG O2 Saturation 99.7 H (94-97) % Chloride (98-107) mmol/L Glucose (74-99) mg/dL POC Glucose (mg/dL) 111 H 134 H (70-110) mg/dL Calcium (8.4-10.2) mg/dL Magnesium (1.6-2.3) mg/dL AST (17-59) U/L Alkaline Phosphatase (38-126) U/L Total Protein (6.3-8.2) g/dL Albumin (3.5-5.0) g/dL Crossmatch 04/01/23 04/01/23 04/01/23 Range/Units 18:20 18:22 18:45 RBC 2.96 L (4.30-5.90) m/uL Hgb 9.1 L (13.0-17.5) gm/dL Hct 26.9 L (39.0-53.0) % Plt Count 83 L (150-450) k/uL Lymphocytes # 0.7 L (1.0-4.8) k/uL PT 12.2 H (9.0-12.0) sec INR 1.2 H (<1.2) APTT 30.1 H (22.0-30.0) sec ABG pH (7.35-7.45) ABG pCO2 (35-45) mmHg ABG pO2 (83-108) mmHg ABG Total CO2 (19-24) mmol/L ABG O2 Saturation (94-97) % Chloride (98-107) mmol/L Glucose (74-99) mg/dL POC Glucose (mg/dL) 137 H (70-110) mg/dL Calcium (8.4-10.2) mg/dL Magnesium (1.6-2.3) mg/dL AST (17-59) U/L Alkaline Phosphatase (38-126) U/L Total Protein (6.3-8.2) g/dL Albumin (3.5-5.0) g/dL Crossmatch 04/01/23 04/01/23 04/01/23 Range/Units 18:49 19:58 21:01 RBC (4.30-5.90) m/uL Hgb (13.0-17.5) gm/dL Hct (39.0-53.0) % Plt Count (150-450) k/uL Lymphocytes # (1.0-4.8) k/uL PT (9.0-12.0) sec INR (<1.2) APTT (22.0-30.0) sec ABG pH (7.35-7.45) ABG pCO2 (35-45) mmHg ABG pO2 (83-108) mmHg ABG Total CO2 (19-24) mmol/L ABG O2 Saturation (94-97) % Chloride (98-107) mmol/L Glucose (74-99) mg/dL POC Glucose (mg/dL) 136 H 138 H 144 H (70-110) mg/dL Calcium (8.4-10.2) mg/dL Magnesium (1.6-2.3) mg/dL AST (17-59) U/L Alkaline Phosphatase (38-126) U/L Total Protein (6.3-8.2) g/dL Albumin (3.5-5.0) g/dL Crossmatch 04/01/23 04/01/23 04/01/23 Range/Units 21:13 21:50 21:52 RBC 2.62 L (4.30-5.90) m/uL Hgb 8.0 L (13.0-17.5) gm/dL Hct 23.9 L (39.0-53.0) % Plt Count 72 L (150-450) k/uL Lymphocytes # 0.4 L (1.0-4.8) k/uL PT (9.0-12.0) sec INR (<1.2) APTT (22.0-30.0) sec ABG pH (7.35-7.45) ABG pCO2 (35-45) mmHg ABG pO2 82 L (83-108) mmHg ABG Total CO2 26 H (19-24) mmol/L ABG O2 Saturation 97.1 H (94-97) % Chloride (98-107) mmol/L Glucose (74-99) mg/dL POC Glucose (mg/dL) 147 H (70-110) mg/dL Calcium (8.4-10.2) mg/dL Magnesium (1.6-2.3) mg/dL AST (17-59) U/L Alkaline Phosphatase (38-126) U/L Total Protein (6.3-8.2) g/dL Albumin (3.5-5.0) g/dL Crossmatch 04/01/23 04/02/23 04/02/23 Range/Units 23:07 00:06 01:03 RBC (4.30-5.90) m/uL Hgb (13.0-17.5) gm/dL Hct (39.0-53.0) % Plt Count (150-450) k/uL Lymphocytes # (1.0-4.8) k/uL PT (9.0-12.0) sec INR (<1.2) APTT (22.0-30.0) sec ABG pH (7.35-7.45) ABG pCO2 (35-45) mmHg ABG pO2 (83-108) mmHg ABG Total CO2 (19-24) mmol/L ABG O2 Saturation (94-97) % Chloride (98-107) mmol/L Glucose (74-99) mg/dL POC Glucose (mg/dL) 138 H 140 H 128 H (70-110) mg/dL Calcium (8.4-10.2) mg/dL Magnesium (1.6-2.3) mg/dL AST (17-59) U/L Alkaline Phosphatase (38-126) U/L Total Protein (6.3-8.2) g/dL Albumin (3.5-5.0) g/dL Crossmatch 04/02/23 04/02/23 04/02/23 Range/Units 02:06 04:03 04:05 RBC 2.64 L (4.30-5.90) m/uL Hgb 8.1 L (13.0-17.5) gm/dL Hct 24.1 L (39.0-53.0) % Plt Count 75 L (150-450) k/uL Lymphocytes # 0.7 L (1.0-4.8) k/uL PT (9.0-12.0) sec INR (<1.2) APTT (22.0-30.0) sec ABG pH (7.35-7.45) ABG pCO2 (35-45) mmHg ABG pO2 (83-108) mmHg ABG Total CO2 (19-24) mmol/L ABG O2 Saturation (94-97) % Chloride (98-107) mmol/L Glucose (74-99) mg/dL POC Glucose (mg/dL) 130 H 128 H (70-110) mg/dL Calcium (8.4-10.2) mg/dL Magnesium (1.6-2.3) mg/dL AST (17-59) U/L Alkaline Phosphatase (38-126) U/L Total Protein (6.3-8.2) g/dL Albumin (3.5-5.0) g/dL Crossmatch 04/02/23 04/02/23 04/02/23 Range/Units 04:05 06:50 08:12 RBC (4.30-5.90) m/uL Hgb (13.0-17.5) gm/dL Hct (39.0-53.0) % Plt Count (150-450) k/uL Lymphocytes # (1.0-4.8) k/uL PT (9.0-12.0) sec INR (<1.2) APTT (22.0-30.0) sec ABG pH (7.35-7.45) ABG pCO2 (35-45) mmHg ABG pO2 (83-108) mmHg ABG Total CO2 (19-24) mmol/L ABG O2 Saturation (94-97) % Chloride 108 H (98-107) mmol/L Glucose 114 H (74-99) mg/dL POC Glucose (mg/dL) 118 H 130 H (70-110) mg/dL Calcium 7.7 L (8.4-10.2) mg/dL Magnesium 2.5 H (1.6-2.3) mg/dL AST 74 H (17-59) U/L Alkaline Phosphatase 31 L (38-126) U/L Total Protein 5.1 L (6.3-8.2) g/dL Albumin 3.3 L (3.5-5.0) g/dL Crossmatch 04/02/23 04/02/23 Range/Units 09:41 11:15 RBC (4.30-5.90) m/uL Hgb (13.0-17.5) gm/dL Hct (39.0-53.0) % Plt Count (150-450) k/uL Lymphocytes # (1.0-4.8) k/uL PT (9.0-12.0) sec INR (<1.2) APTT (22.0-30.0) sec ABG pH (7.35-7.45) ABG pCO2 (35-45) mmHg ABG pO2 (83-108) mmHg ABG Total CO2 (19-24) mmol/L ABG O2 Saturation (94-97) % Chloride (98-107) mmol/L Glucose (74-99) mg/dL POC Glucose (mg/dL) 126 H 148 H (70-110) mg/dL Calcium (8.4-10.2) mg/dL Magnesium (1.6-2.3) mg/dL AST (17-59) U/L Alkaline Phosphatase (38-126) U/L Total Protein (6.3-8.2) g/dL Albumin (3.5-5.0) g/dL Crossmatch
[2023-04-02 12:21] LABS: Glucose,Whole Blood 128 mg/dL (70-110)
[2023-04-02] MEDS: AMIODARONE 200 MG TAB PO SCH ×2 (12:49→20:29)
[2023-04-02] MEDS: SODIUM CHLORIDE 0.9% 1,000 ML IV SCH (12:50)
[2023-04-02 13:17] LABS: Glucose,Whole Blood 135 mg/dL (70-110)
[2023-04-02 15:26] LABS: Glucose,Whole Blood 138 mg/dL (70-110)
[2023-04-02 18:21] LABS: Glucose,Whole Blood 150 mg/dL (70-110)
[2023-04-02] MEDS: SENNOSIDES-DOCUSATE SODIUM 1 EACH TAB PO SCH (20:29)
[2023-04-02] MEDS: NOREPINEPHRINE 4 MG in SODIUM CHLORIDE 0.9% 250 ML IV SCH (20:31)
[2023-04-02 20:41] LABS: Glucose,Whole Blood 122 mg/dL (70-110)
[2023-04-02 22:59] LABS: Glucose,Whole Blood 117 mg/dL (70-110)
[2023-04-03] MEDS: HYDROcodone/APAP 10-325MG 1 EACH TAB PO PRN ×5 (00:30→21:53)
[2023-04-03 01:15] LABS: Glucose,Whole Blood 134 mg/dL (70-110)
[2023-04-03 03:36] LABS: Glucose,Whole Blood 122 mg/dL (70-110)
[2023-04-03 03:47] LABS: Basophils % (A) 0 %; Eosinophils % (A) 1 %; HCT 22.6 % (39.0-53.0); HGB 7.5 gm/dL (13.0-17.5); Lymphocytes # (A) 0.9 k/uL (1.0-4.8); Lymphocytes % (A) 11 %; MCH 29.9 pg (25.0-35.0); MCV 90.6 fL (80.0-100.0); Mean Platelet Volume 9.7; Monocytes # (A) 0.4 k/uL (0-1.0); Monocytes % (A) 5 %; Neutrophils # (A) 6.8 k/uL (1.3-7.7); Neutrophils % (A) 82 %; RDW 13.9 % (11.5-15.5); WBC 8.3 k/uL (3.8-10.6)
[2023-04-03 03:49] LABS: Platelet Count 66 k/uL (150-450)
[2023-04-03 04:00] LABS: Albumin 3.4 g/dL (3.5-5.0); Calcium 8.1 mg/dL (8.4-10.2); Potassium 4.2 mmol/L (3.5-5.1); Total Protein 5.4 g/dL (6.3-8.2)
[2023-04-03 06:08] LABS: Glucose,Whole Blood 119 mg/dL (70-110)
[2023-04-03] MEDS: PANTOPRAZOLE 40 MG TABLET PO SCH (06:46)
[2023-04-03] MEDS: LEVOTHYROXINE 75 MCG TAB PO SCH (06:46)
[2023-04-03] MEDS: SODIUM CHLORIDE 0.9% 1,000 ML IV SCH (06:46)
--- NOTE | 2023-04-03 07:18 | XR ---
EXAMINATION TYPE: XR chest 1V portable DATE OF EXAM: 04/03/2023 5:57 AM COMPARISON: Chest radiographs from 04/02/2023 TECHNIQUE: XR chest 1V portable Frontal view of the chest. CLINICAL INDICATION:Male, 63 years old with history of Post Operative Cardiac Surgery; FINDINGS: Lungs/Pleura: Low lung volumes are present. There is no evidence of pleural effusion, focal consolida tion, or pneumothorax. Pulmonary vascularity: Unremarkable. Heart/mediastinum: Cardiomediastinal silhouette is enlarged and stable. Post aortic valve repair holly nges. Left atrial appendage occlusion device is present. Musculoskeletal: No acute osseous pathology. Other findings: None Lines/Tubes: Bilateral thoracotomy tubes are present without evidence of pneumothorax. Drainage tubes with tips projecting over the mediastinum. Removal of prior swan scans catheter, sheath remains in place. IMPRESSION: Post surgery changes. Exam is stable. No appreciable pneumothorax.
--- NOTE | 2023-04-03 07:55 | P.PN ---
Subjective Progress Note Date: 04/03/23 Principal diagnosis: Severe bicuspid aortic valve stenosis with fusion of the right and noncoronary cusps of the aortic valve, coronary artery disease, unstable angina, reduced lef t ventricular systolic function. History of severe aortic stenosis, hypertension, hyperlipidemia, hypothyroid, previous tobacco dependence, recent cessation of marijuana use, covid in 2020 (remains unvaccinated), obesity, and family history of premature CAD POD #2 triple vessel coronary artery bypass grafting using the totally skeletonized in situ left internal mammary artery to the diagonal artery in a [id number] fashion then to the left anterior descending artery in an end-to-side fashion, reverse saphenous vein graft from the aorta to the ramus intermedius artery, aortic valve replacement using a 23 mm Inspiris pericardial bioprosthesis, exclusion of the left atrial appendage using a 35 mm AtriCure clip, bilateral greater saphenous vein endoscopic harvesting, intraoperative transesophageal echocardiogram and epi-aortic ultrasound, graft flow measurements using the Wowboard system Postoperative acute blood loss anemia and thrombocytopenia, expected given hemodilution and cardiopulmonary bypass bump along with preoperative thrombocytopenia The patient was seen and examined this morning sitting up in a recliner in the intensive care unit in no acute distress. He does complain of post surgical pain but states it's better controlled today, denies shortness of breath. Currently in sinus tach with left bundle branch block with frequent PACs, blood pressure soft on very low dose levofed, cuff pressure reading better than arterial pressure. Lab work, chest x-ray reviewed. Right internal jugular cordis, right radial arterial line, mediastinal/left/right pleural chest tubes all remain. Patient reports it was easier getting up to the recliner this morning, no ambulation yesterday. Remains on 3 L nasal cannula, able to achieve 750-1000 mL on his incentive spirometry with better effort, weak cough. Urine output remains martginal but stable. No other new concerns. Objective - Vital Signs Vital signs: Vital Signs Temp 98.5 F 04/03/23 04:00 Pulse 111 H 04/03/23 07:00 Resp 24 04/03/23 07:00 BP 127/101 04/03/23 06:45 Pulse Ox 95 04/03/23 06:00 FiO2 5 04/02/23 00:00 Intake & Output 04/02/23 04/03/23 04/03/23 18:59 06:59 18:59 Intake Total 9229.806 7744.287 56 Output Total 1103 855 190 Balance -13.133 482.287 -134 Weight 103.5 kg Intake: IV 1059 662 56 Albumin Human 5% 500 ml 250 In Empty Bag 1 bag @ 250 mls/hr IVPB ONCE ONE Rx#: [id number] Cardiac Output (0.9 60 sodium chloride) Pressure Bag (0.9 Sodium 99 72 6 Chloride) Sodium Chloride 0.9% 1, 600 590 50 000 ml @ 50 mls/hr IV . Q20H [facility] Rx#:[id number] algumin 25% 50 Intake, IV Titration 30.867 175.287 Amount Insulin Regular 100 unit 10.672 14.015 In Sodium Chloride 0.9% 100 ml @ Per Protocol IV .Q0M [facility] Rx#:[id number] Norepinephrine 4 mg In 20.195 161.272 Sodium Chloride 0.9% 250 ml @ 0.03 MCG/KG/MIN 10. 756 mls/hr IV .[id number] [facility] Rx#:[id number] Oral 500 Output: Chest Tube Drainage 708 330 160 Chest Tube Bilateral 90 60 30 Mediastinal Chest Tube Left Lateral 470 190 80 Chest Chest Tube Right Lateral 148 80 50 Chest Urine 395 525 30 Other: Voiding Method Indwelling Catheter Indwelling Catheter ABP, PAP, CO, CI - Last Documented Arterial Blood Pressure 103/51 Pulmonary Artery Pressure 74/50 Cardiac Output 7.2 Cardiac Index 3.4 - Exam CONSTITUTIONAL: Appears comfortable, cooperative, no acute distress RESPIRATORY: Lungs sounds diminished bilaterally. Respirations even, nonlabored. Currently on 3 L nasal cannula with oxygen saturation 92%. Able to achieve 750-1000 mL on incentive spirometry. Weak cough. CARDIOVASCULAR: S1, S2 present. Regular rate and rhythm, sinus tach with LBBB and frequent PACs on telemetry. Sternum stable. Palpable peripheral pulses bilaterally. No edema present. No calf pain or tenderness noted. Heart hugger in place with patient demonstrating appropriate use. Antiembolism stockings, SCDs present. GASTROINTESTINAL: Abdomen soft, nontender, nondistended. Hypoactive bowel sounds present 4 quadrants. Tolerating clear liquids. Positive belching, negative flatus GENITOURINARY: Liu present draining clear, yellow urine. Output overnight 25-50 mL per hour, 920 mL in the last 24 hours INTEGUMENTARY: Skin is warm and dry with evidence of good perfusion. Anterior chest incision well approximated and covered with dry intact dressing. Bilateral lower extremity EVH sites well approximated without redness NEUROLOGIC: Cranial nerves II through XII intact MUSKULOSKELETAL: Able to move all extremities, strength equal bilaterally PSYCHIATRIC: Alert and oriented to person place and time, appropriate affect, intact judgment and insight INVASIVE LINES AND TUBES: Mediastinal/left/right pleural chest tubes present and connected to wall suction, no air leaks present. Mediastinal tube with 50 mL serosanguineous drainage overnight, 120 mL in the last 24 hours. Left pleural chest tube with 210 mL serosanguineous drainage overnight, 700 mL in the last 24 hours. Right pleural chest tube with 90 mL serosanguineous drainage overnight, 220 mL in the last 24 hours. A/V epicardial pacemaker wires present, grounded. Right internal jugular cordis, right radial arterial line present. Last CVP 4-6 - Allied health notes Allied health notes reviewed: nursing - Labs CBC & Chem 7: 04/03/23 03:40 04/03/23 03:40 Labs: Abnormal Lab Results - Last 24 Hours (Table) 04/02/23 04/02/23 04/02/23 Range/Units 08:12 09:41 11:15 RBC (4.30-5.90) m/uL Hgb (13.0-17.5) gm/dL Hct (39.0-53.0) % Plt Count (150-450) k/uL Lymphocytes # (1.0-4.8) k/uL Sodium (137-145) mmol/L Creatinine (0.66-1.25) mg/dL Glucose (74-99) mg/dL POC Glucose (mg/dL) 130 H 126 H 148 H (70-110) mg/dL Calcium (8.4-10.2) mg/dL AST (17-59) U/L Alkaline Phosphatase (38-126) U/L Total Protein (6.3-8.2) g/dL Albumin (3.5-5.0) g/dL 04/02/23 04/02/23 04/02/23 Range/Units 12:20 13:16 15:23 RBC (4.30-5.90) m/uL Hgb (13.0-17.5) gm/dL Hct (39.0-53.0) % Plt Count (150-450) k/uL Lymphocytes # (1.0-4.8) k/uL Sodium (137-145) mmol/L Creatinine (0.66-1.25) mg/dL Glucose (74-99) mg/dL POC Glucose (mg/dL) 128 H 135 H 138 H (70-110) mg/dL Calcium (8.4-10.2) mg/dL AST (17-59) U/L Alkaline Phosphatase (38-126) U/L Total Protein (6.3-8.2) g/dL Albumin (3.5-5.0) g/dL 04/02/23 04/02/23 04/02/23 Range/Units 18:19 20:39 22:57 RBC (4.30-5.90) m/uL Hgb (13.0-17.5) gm/dL Hct (39.0-53.0) % Plt Count (150-450) k/uL Lymphocytes # (1.0-4.8) k/uL Sodium (137-145) mmol/L Creatinine (0.66-1.25) mg/dL Glucose (74-99) mg/dL POC Glucose (mg/dL) 150 H 122 H 117 H (70-110) mg/dL Calcium (8.4-10.2) mg/dL AST (17-59) U/L Alkaline Phosphatase (38-126) U/L Total Protein (6.3-8.2) g/dL Albumin (3.5-5.0) g/dL 04/03/23 04/03/23 04/03/23 Range/Units 01:12 03:34 03:40 RBC 2.50 L (4.30-5.90) m/uL Hgb 7.5 L (13.0-17.5) gm/dL Hct 22.6 L (39.0-53.0) % Plt Count 66 L (150-450) k/uL Lymphocytes # 0.9 L (1.0-4.8) k/uL Sodium (137-145) mmol/L Creatinine (0.66-1.25) mg/dL Glucose (74-99) mg/dL POC Glucose (mg/dL) 134 H 122 H (70-110) mg/dL Calcium (8.4-10.2) mg/dL AST (17-59) U/L Alkaline Phosphatase (38-126) U/L Total Protein (6.3-8.2) g/dL Albumin (3.5-5.0) g/dL 04/03/23 04/03/23 Range/Units 03:40 06:06 RBC (4.30-5.90) m/uL Hgb (13.0-17.5) gm/dL Hct (39.0-53.0) % Plt Count (150-450) k/uL Lymphocytes # (1.0-4.8) k/uL Sodium 136 L (137-145) mmol/L Creatinine 1.29 H (0.66-1.25) mg/dL Glucose 112 H (74-99) mg/dL POC Glucose (mg/dL) 119 H (70-110) mg/dL Calcium 8.1 L (8.4-10.2) mg/dL AST 81 H (17-59) U/L Alkaline Phosphatase 34 L (38-126) U/L Total Protein 5.4 L (6.3-8.2) g/dL Albumin 3.4 L (3.5-5.0) g/dL - Imaging and Cardiology Chest x-ray: report reviewed, image reviewed Assessment and Plan Assessment: Severe bicuspid aortic valve stenosis with fusion of the right and noncoronary cusps of the aortic valve, status post bioprosthetic aortic valve replacement Coronary artery disease, unstable angina, status post three-vessel CABG Reduced left ventricular systolic function, EF 45-50% Hypertension Hyperlipidemia, treated, chol 148, LDL 84.5 Hypothyroid, TSH 2.39 Previous tobacco dependence, FEV 1 69% Recent cessation of marijuana use Covid in 2020 (remains unvaccinated) Obesity Family history of premature CAD Postoperative acute blood loss anemia and thrombocytopenia, expected given hemodilution and cardiopulmonary bypass bump along with preoperative thrombocytopenia Plan: Continue to maximize medical therapy with low dose ASA, statin, Plavix, beta nilson. Will increase beta nilson therapy as tolerated, increased to 25 mg BID today Wean levo as tolerated Continue amiodarone for afib prophylaxis Wean oxygen as tolerated. Encourage use of incentive spirometry 10 times every hour while awake. Bronchodilators per pulmonology Will monitor daily labs and x-rays. Electrolyte replacement per protocol Increase activity, ambulate as tolerated. PT/OT/cardiac rehab consulted GI/DVT prophylaxis Pain control per current medication regimen. No Toradol due to thrombocytopenia Insulin management per internal medicine. Patient is not diabetic, preoperative hemoglobin A1c 6% Will discontinue mediastinal chest tube, continue pleural chest tubes for another 24 hours Continue Liu catheter for the 24 hours for strict accurate intake and output Daily weights More recommendations to follow
[2023-04-03] MEDS: IPRATROPIUM-ALBUTEROL 3 ML NEB INHALATION SCH ×4 (08:19→20:05)
[2023-04-03] MEDS: CLOPIDOGREL 75 MG TAB PO SCH (08:28)
[2023-04-03] MEDS: ATORVASTATIN 40 MG TAB PO SCH (08:28)
[2023-04-03] MEDS: AMIODARONE 200 MG TAB PO SCH ×2 (08:28→20:50)
[2023-04-03] MEDS: METOPROLOL TARTRATE 25 MG TAB PO SCH ×2 (08:28→20:50)
[2023-04-03] MEDS: ASPIRIN 81 MG PO SCH (08:28)
--- NOTE | 2023-04-03 09:53 | P.PN ---
Subjective Progress Note Date: 04/03/23 Principal diagnosis: Coronary disease/aortic stenosis. Pulmonary consultation dated 03/31/2023. This is a pleasant 62-year-old male that we are currently evaluating, in room 361, for possible bypass grafting, and aortic valve replacement, to be done on April 01. We were consulted for preoperative evaluation. The patient was admitted to the hospital on March 28. The cardiac catheterization done on the same day revealed significant coronary disease, as well as significant aortic stenosis. The patient was seen by cardiothoracic surgery, and surgeries plan for tomorrow. Currently, the patient's on room air. Is not receiving any IV fluids. He has no history of any lung disease, but did smoke when he was very young for a year or 2. He denies any shortness of breath, cough, wheezing, chest tightness, or phlegm production. His medical history includes unstable angina, hypothyroidism, hypertension, and hyperlipidemia. The patient's home medications included aspirin, Synthroid, losartan/hydrochlorothiazide, metoprolol, sublingual nitroglycerin, and Crestor. Current laboratory data includes a white count of 5.6, hemoglobin 14.9, hematocrit 45.1, and a platelet count of 149,000. Sodium, potassium, chloride, CO2, anion gap, BUN and creatinine, all normal. So was the rest of the comprehensive metabolic profile. Chest x-ray to my eye, was normal. Progress note dated 04/02/2023. 62-year-old male, postop day #1, status post three-vessel bypass grafting, aorti c valve replacement, and left atrial appendage ligation. The patient had surgery yesterday. The patient is currently resting comfortably in the intensive care unit, room 267. Other than for pain at the surgical site, he appears to be doing relatively well. The patient's currently on 4 L of oxygen. He is getting saline at 50 mL an hour, norepinephrine at 2 mcg/m, and insulin drip at 1 unit an hour. White count 5, hemoglobin 8.1, hematocrit 24.1, and platelet count 75,000. Sodium 139, potassium 4.3, chlorides 108, CO2 25, BUN 18, and creatinine 1.17. Albumin is 3.3. Magnesium 2.5. Chest x-ray shows interval extubation, low lung volumes, cardiomegaly, and some bibasilar atelectasis. Progress note dated 04/03/2023. 62-year-old male postop day #2, status post three-vessel bypass grafting, aortic valve replacement, and left atrial appendage ligation. The patient's doing relatively well. He is currently on 3 L of oxygen. He is getting saline at 40 mL an hour. His norepinephrine dose is 1 mcg/m. Chest tubes came out today. He continues to work on incentive spirometer. White count 8.3, hemoglobin 7.5, hematocrit 22.6, and platelet count 66,000. Sodium 136, potassium 4.2, chlorides 105, CO2 25, BUN 19, creatinine 1.29. Chest x-rays essentially unchanged, with some atelectatic changes at the bases. Objective - Vital Signs Vital signs: Vital Signs Temp 98 F 04/03/23 08:00 Pulse 112 H 04/03/23 09:30 Resp 18 04/03/23 09:30 BP 92/53 04/03/23 09:00 Pulse Ox 91 L 04/03/23 09:30 FiO2 5 04/02/23 00:00 Intake & Output 04/02/23 04/03/23 04/03/23 18:59 06:59 18:59 Intake Total 4575.735 9726.287 173.353 Output Total 1103 855 420 Balance -13.133 482.287 -246.647 Weight 103.5 kg Intake: IV 1059 662 168 Albumin Human 5% 500 ml 250 In Empty Bag 1 bag @ 250 mls/hr IVPB ONCE ONE Rx#: [id number] Cardiac Output (0.9 60 sodium chloride) Pressure Bag (0.9 Sodium 99 72 18 Chloride) Sodium Chloride 0.9% 1, 600 590 150 000 ml @ 50 mls/hr IV . Q20H [facility] Rx#:[id number] algumin 25% 50 Intake, IV Titration 30.867 175.287 5.353 Amount Insulin Regular 100 unit 10.672 14.015 5.353 In Sodium Chloride 0.9% 100 ml @ Per Protocol IV .Q0M [facility] Rx#:[id number] Norepinephrine 4 mg In 20.195 161.272 Sodium Chloride 0.9% 250 ml @ 0.03 MCG/KG/MIN 10. 756 mls/hr IV .[id number] [facility] Rx#:[id number] Oral 500 Output: Chest Tube Drainage 708 330 330 Chest Tube Bilateral 90 60 30 Mediastinal Chest Tube Left Lateral 470 190 250 Chest Chest Tube Right Lateral 148 80 50 Chest Urine 395 525 90 Other: Voiding Method Indwelling Catheter Indwelling Catheter Indwelling Catheter ABP, PAP, CO, CI - Last Documented Arterial Blood Pressure 105/46 Pulmonary Artery Pressure 74/50 Cardiac Output 7.2 Cardiac Index 3.4 - Exam No acute distress, oriented 3. No conversational dyspnea or use of accessory muscles. Currently on 3 L of oxygen. HEENT examination is grossly unremarkable. Mucous membranes are moist. No oral lesions. Neck supple. Full range of motion. No adenopathy thyromegaly or neck vein distention. Cardiovascular examination reveals regular rhythm rate. S1-S2 normal. No S3 or S4. No discernible murmur noted. Heart rate 99 bpm. Lungs reveal clear breath sounds. Breath sounds are equal bilaterally. No adventitious lung sounds including wheezes rhonchi or crackles. 4 L saturation is 94 %. Abdomen soft bowel sounds are heard. No masses or tenderness. Extremities are intact. No cyanosis clubbing or edema. Skin is without rash or lesion. Neurologic examination is brief but nonfocal. - Labs CBC & Chem 7: 04/03/23 03:40 04/03/23 03:40 Labs: Abnormal Lab Results - Last 24 Hours (Table) 04/02/23 04/02/23 04/02/23 Range/Units 11:15 12:20 13:16 RBC (4.30-5.90) m/uL Hgb (13.0-17.5) gm/dL Hct (39.0-53.0) % Plt Count (150-450) k/uL Lymphocytes # (1.0-4.8) k/uL Sodium (137-145) mmol/L Creatinine (0.66-1.25) mg/dL Glucose (74-99) mg/dL POC Glucose (mg/dL) 148 H 128 H 135 H (70-110) mg/dL Calcium (8.4-10.2) mg/dL AST (17-59) U/L Alkaline Phosphatase (38-126) U/L Total Protein (6.3-8.2) g/dL Albumin (3.5-5.0) g/dL 04/02/23 04/02/23 04/02/23 Range/Units 15:23 18:19 20:39 RBC (4.30-5.90) m/uL Hgb (13.0-17.5) gm/dL Hct (39.0-53.0) % Plt Count (150-450) k/uL Lymphocytes # (1.0-4.8) k/uL Sodium (137-145) mmol/L Creatinine (0.66-1.25) mg/dL Glucose (74-99) mg/dL POC Glucose (mg/dL) 138 H 150 H 122 H (70-110) mg/dL Calcium (8.4-10.2) mg/dL AST (17-59) U/L Alkaline Phosphatase (38-126) U/L Total Protein (6.3-8.2) g/dL Albumin (3.5-5.0) g/dL 04/02/23 04/03/23 04/03/23 Range/Units 22:57 01:12 03:34 RBC (4.30-5.90) m/uL Hgb (13.0-17.5) gm/dL Hct (39.0-53.0) % Plt Count (150-450) k/uL Lymphocytes # (1.0-4.8) k/uL Sodium (137-145) mmol/L Creatinine (0.66-1.25) mg/dL Glucose (74-99) mg/dL POC Glucose (mg/dL) 117 H 134 H 122 H (70-110) mg/dL Calcium (8.4-10.2) mg/dL AST (17-59) U/L Alkaline Phosphatase (38-126) U/L Total Protein (6.3-8.2) g/dL Albumin (3.5-5.0) g/dL 04/03/23 04/03/23 04/03/23 Range/Units 03:40 03:40 06:06 RBC 2.50 L (4.30-5.90) m/uL Hgb 7.5 L (13.0-17.5) gm/dL Hct 22.6 L (39.0-53.0) % Plt Count 66 L (150-450) k/uL Lymphocytes # 0.9 L (1.0-4.8) k/uL Sodium 136 L (137-145) mmol/L Creatinine 1.29 H (0.66-1.25) mg/dL Glucose 112 H (74-99) mg/dL POC Glucose (mg/dL) 119 H (70-110) mg/dL Calcium 8.1 L (8.4-10.2) mg/dL AST 81 H (17-59) U/L Alkaline Phosphatase 34 L (38-126) U/L Total Protein 5.4 L (6.3-8.2) g/dL Albumin 3.4 L (3.5-5.0) g/dL Assessment and Plan Assessment: Coronary artery disease, and severe aortic stenosis, with anticipated bypass grafting, and aortic valve replacement, April 01. Postop day #2, status post three-vessel bypass grafting, aortic valve replacement, and left atrial appendage ligation. Routine postoperative ventilator management. No significant intrinsic pulmonary disease. History of hypertension. History of hyperlipidemia. History of hypothyroidism. Unstable angina. Plan: Plan dated 03/31/2023. The patient was seen today and evaluated. Labs, x-rays, and medications are reviewed. The patient appears not to have any intrinsic pulmonary disease. Locally was very young, for just a year or so. 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 The patient is scheduled to undergo bypass grafting, and aortic valve replacement, April 01. I did explain our role, and his care, including helping him be extricated or liberated from mechanical ventilation as soon as possible, as well as seeing him during his hospital stay, and making sure that his lungs are healthy, and he doesn't develop pleural effusion, pneumonia, or lobar collapse/atelectasis. We also mentioned to the patient that the incentive spirometer, would be very important, in his postoperative care. Plan dated 04/02/2023. The patient was not seen yesterday as he was in the operating room. Today is postoperative day #1. The patient had a three-vessel bypass grafting, aortic valve replacement, and left atrial appendage ligation. The patient's currently on saline at 50 mL an hour, and insulin drip, and is still receiving norepinephrine for blood pressure support. Labs, x-rays, and medications are reviewed. Prognosis is guarded. We encourage the patient to deep breathe, c ough, and clear secretions. We also encouraged the patient has seen some spirometer every hour. We will continue to follow, and make recommendations along the way. Plan dated 04/03/2023. The patient appears a bit better. He continues to improve, cough, and clear secretions. He is also encouraged to use his incentive spirometer, every hour while awake. Labs, x-rays, medications are reviewed. The patient remains on norepinephrine at 1 mcg/m. He is getting saline at 40 mL an hour. Oxygen has been titrated down to 3 L. We will continue to follow make recommendations along the way. Time with Patient: Less than 30
--- NOTE | 2023-04-03 11:14 | P.PN ---
Subjective Progress Note Date: 04/03/23 This is Sb Espinoza NP, I'm dictating on behalf of Dr. Britt's H&P and A&P. Patient was interviewed and examined. Patient is a pleasant 63-year-old male who is postoperative day 2 triple bypass and aortic valve replacement. Patient reports that he is feeling better today. Patient had 3 chest tubes, GERALD drains, and his [place] removed yesterday, and states it was much easier for him to transfer to the chair this morning. Patient's telemetry demonstrates a left bundle branch block with quadrigeminy. He reports chest pain with deep breathing and movement. He reports some shortness of breath. He denies palpitations. GENERAL: Well-appearing, well-nourished and in no acute distress. NECK: Supple without JVD or thyromegaly. LUNGS: Breath sounds clear to auscultation bilaterally. Respiration equal and unlabored. No wheezes, rales or rhonchi. HEART: Regular rate and rhythm without murmurs, rubs or gallops. S1 and S2 heard. EXTREMITIES: Normal range of motion, no edema. No clubbing or cyanosis. Peripheral pulses intact and strong. VITALS: Temp 98, pulse 99, respirations 17, blood pressure 118/65, O2 saturations 90% on 3 L TELEMETRY: Normal sinus rhythm with left bundle branch block and quadrigeminy LABS: White count 8.3, hemoglobin 7.5, platelets 66, sodium 136, potassium 4.2, B1 19, creatinine 1.29, calcium 8.1 IMPRESSION: 1. Status post triple vessel bypass with aortic valve replacement 2. Coronary artery disease 3. Hypertension 4. Hyperlipidemia 5. Hypothyroidism 6. Remote history of tobacco use, marijuana use PLAN: Consider increasing metoprolol to 37.5 twice a day or 25 3 times a day. Recommend slowly weaning off norepinephrine. Continue current management. Further recommendations based on patient's clinical course. Objective - Vital Signs Vital signs: Vital Signs Temp 98 F 04/03/23 08:00 Pulse 100 04/03/23 10:15 Resp 32 H 04/03/23 10:15 BP 92/53 04/03/23 09:00 Pulse Ox 90 L 04/03/23 10:15 FiO2 5 04/02/23 00:00 Intake & Output 04/02/23 04/03/23 04/03/23 18:59 06:59 18:59 Intake Total 9180.765 6252.287 229.353 Output Total 1103 855 550 Balance -13.133 482.287 -320.647 Weight 103.5 kg Intake: IV 1059 662 224 Albumin Human 5% 500 ml 250 In Empty Bag 1 bag @ 250 mls/hr IVPB ONCE ONE Rx#: [id number] Cardiac Output (0.9 60 sodium chloride) Pressure Bag (0.9 Sodium 99 72 24 Chloride) Sodium Chloride 0.9% 1, 600 590 200 000 ml @ 50 mls/hr IV . Q20H [facility] Rx#:[id number] algumin 25% 50 Intake, IV Titration 30.867 175.287 5.353 Amount Insulin Regular 100 unit 10.672 14.015 5.353 In Sodium Chloride 0.9% 100 ml @ Per Protocol IV .Q0M [facility] Rx#:[id number] Norepinephrine 4 mg In 20.195 161.272 Sodium Chloride 0.9% 250 ml @ 0.03 MCG/KG/MIN 10. 756 mls/hr IV .[id number] [facility] Rx#:[id number] Oral 500 Output: Chest Tube Drainage 708 330 430 Chest Tube Bilateral 90 60 30 Mediastinal Chest Tube Left Lateral 470 190 320 Chest Chest Tube Right Lateral 148 80 80 Chest Urine 395 525 120 Other: Voiding Method Indwelling Catheter Indwelling Catheter Indwelling Catheter ABP, PAP, CO, CI - Last Documented Arterial Blood Pressure 116/47 Pulmonary Artery Pressure 74/50 Cardiac Output 7.2 Cardiac Index 3.4 - Labs CBC & Chem 7: 04/03/23 03:40 04/03/23 03:40 Labs: Abnormal Lab Results - Last 24 Hours (Table) 04/02/23 04/02/23 04/02/23 Range/Units 11:15 12:20 13:16 RBC (4.30-5.90) m/uL Hgb (13.0-17.5) gm/dL Hct (39.0-53.0) % Plt Count (150-450) k/uL Lymphocytes # (1.0-4.8) k/uL Sodium (137-145) mmol/L Creatinine (0.66-1.25) mg/dL Glucose (74-99) mg/dL POC Glucose (mg/dL) 148 H 128 H 135 H (70-110) mg/dL Calcium (8.4-10.2) mg/dL AST (17-59) U/L Alkaline Phosphatase (38-126) U/L Total Protein (6.3-8.2) g/dL Albumin (3.5-5.0) g/dL 04/02/23 04/02/23 04/02/23 Range/Units 15:23 18:19 20:39 RBC (4.30-5.90) m/uL Hgb (13.0-17.5) gm/dL Hct (39.0-53.0) % Plt Count (150-450) k/uL Lymphocytes # (1.0-4.8) k/uL Sodium (137-145) mmol/L Creatinine (0.66-1.25) mg/dL Glucose (74-99) mg/dL POC Glucose (mg/dL) 138 H 150 H 122 H (70-110) mg/dL Calcium (8.4-10.2) mg/dL AST (17-59) U/L Alkaline Phosphatase (38-126) U/L Total Protein (6.3-8.2) g/dL Albumin (3.5-5.0) g/dL 04/02/23 04/03/23 04/03/23 Range/Units 22:57 01:12 03:34 RBC (4.30-5.90) m/uL Hgb (13.0-17.5) gm/dL Hct (39.0-53.0) % Plt Count (150-450) k/uL Lymphocytes # (1.0-4.8) k/uL Sodium (137-145) mmol/L Creatinine (0.66-1.25) mg/dL Glucose (74-99) mg/dL POC Glucose (mg/dL) 117 H 134 H 122 H (70-110) mg/dL Calcium (8.4-10.2) mg/dL AST (17-59) U/L Alkaline Phosphatase (38-126) U/L Total Protein (6.3-8.2) g/dL Albumin (3.5-5.0) g/dL 04/03/23 04/03/23 04/03/23 Range/Units 03:40 03:40 06:06 RBC 2.50 L (4.30-5.90) m/uL Hgb 7.5 L (13.0-17.5) gm/dL Hct 22.6 L (39.0-53.0) % Plt Count 66 L (150-450) k/uL Lymphocytes # 0.9 L (1.0-4.8) k/uL Sodium 136 L (137-145) mmol/L Creatinine 1.29 H (0.66-1.25) mg/dL Glucose 112 H (74-99) mg/dL POC Glucose (mg/dL) 119 H (70-110) mg/dL Calcium 8.1 L (8.4-10.2) mg/dL AST 81 H (17-59) U/L Alkaline Phosphatase 34 L (38-126) U/L Total Protein 5.4 L (6.3-8.2) g/dL Albumin 3.4 L (3.5-5.0) g/dL
[2023-04-03] MEDS: MAGNESIUM HYDROXIDE 2,400 MG/10 ML CUP PO PRN (11:15)
[2023-04-03 11:38] LABS: Glucose,Whole Blood 126 mg/dL (70-110)
[2023-04-03] MEDS: INSULIN ASPART (NovoLOG) 100 UNIT/ML VIAL SQ SCH ×3 (12:26→20:50)
[2023-04-03 13:52] VITALS: BMI 33.7
[2023-04-03] MEDS ORDERED: FUROSEMIDE 10 MG/ML 2 ML VIAL IV STA (13:56)
[2023-04-03 16:35] LABS: Glucose,Whole Blood 130 mg/dL (70-110)
[2023-04-03] MEDS: IPRATROPIUM-ALBUTEROL 3 ML NEB INHALATION PRN (17:02)
[2023-04-03] MEDS: ASCORBIC ACID 500 MG TAB PO SCH (17:10)
[2023-04-03] MEDS: FERROUS SULFATE 325 MG TAB PO SCH (17:10)
[2023-04-03] MEDS ORDERED: DEXTROSE 5% IN WATER 100 ML with AMIODARONE 150 MG IV ONE (18:20)
[2023-04-03] MEDS: PHENYLEPHRINE 40 MG in SODIUM CHLORIDE 0.9% 250 ML IV SCH (18:20)
[2023-04-03 20:47] LABS: Glucose,Whole Blood 143 mg/dL (70-110)
[2023-04-03] MEDS: SENNOSIDES-DOCUSATE SODIUM 1 EACH TAB PO SCH (20:50)
[2023-04-03] MEDS: MELATONIN 3 MG TABLET PO PRN (22:21)
[2023-04-04] MEDS: SODIUM CHLORIDE 0.9% 1,000 ML IV SCH ×3 (04:14→23:36)
[2023-04-04] MEDS: HYDROcodone/APAP 10-325MG 1 EACH TAB PO PRN (04:46)
[2023-04-04 05:06] LABS: Basophils % (A) 0 %; Eosinophils # (A) 0.1 k/uL (0-0.7); Eosinophils % (A) 1 %; HCT 21.9 % (39.0-53.0); HGB 7.3 gm/dL (13.0-17.5); Lymphocytes # (A) 1.3 k/uL (1.0-4.8); Lymphocytes % (A) 14 %; MCH 30.9 pg (25.0-35.0); MCHC 33.6 g/dL (31.0-37.0); MCV 92.1 fL (80.0-100.0); Mean Platelet Volume 9.3; Monocytes # (A) 0.5 k/uL (0-1.0); Monocytes % (A) 5 %; Neutrophils # (A) 7.4 k/uL (1.3-7.7); Neutrophils % (A) 78 %; RBC 2.37 m/uL (4.30-5.90); RDW 13.9 % (11.5-15.5); WBC 9.5 k/uL (3.8-10.6)
[2023-04-04 05:15] LABS: Albumin 3.1 g/dL (3.5-5.0); Calcium 7.9 mg/dL (8.4-10.2); Potassium 4.1 mmol/L (3.5-5.1); Total Bilirubin 0.6 mg/dL (0.2-1.3); Total Protein 5.2 g/dL (6.3-8.2)
[2023-04-04 05:16] LABS: Platelet Count 89 k/uL (150-450)
[2023-04-04] MEDS: LEVOTHYROXINE 75 MCG TAB PO SCH (06:15)
[2023-04-04] MEDS: INSULIN ASPART (NovoLOG) 100 UNIT/ML VIAL SQ SCH ×4 (06:16→20:32)
[2023-04-04] MEDS: ASCORBIC ACID 500 MG TAB PO SCH ×2 (06:45→16:35)
[2023-04-04] MEDS: FERROUS SULFATE 325 MG TAB PO SCH ×2 (06:45→16:35)
[2023-04-04] MEDS: PANTOPRAZOLE 40 MG TABLET PO SCH (06:46)
--- NOTE | 2023-04-04 06:53 | XR ---
EXAMINATION TYPE: XR chest 1V portable DATE OF EXAM: 04/04/2023 CLINICAL HISTORY: Difficulty breathing progress study. Postoperative cardiac surgery. TECHNIQUE: Single AP portable semiupright view of the chest is obtained. COMPARISON: Chest x-ray from one day earlier FINDINGS: Stable right internal jugular Cordis sheath. Stable bilateral chest tubes. Interval remova l of mediastinal drainage catheter. Overlying sternal wires along with left atrial appendage clipping and metallic aortic valve are all redemonstrated. Low lung volumes and chronic parenchymal changes with left basilar opacities redemonstrated. No visua lized pneumothorax. Mild cardiomegaly demonstrated. Osseous structures are intact. IMPRESSION: Persistent low lung volumes and cardiomegaly with left basilar atelectasis and/or acute i nfiltrate. No pneumothorax identified with bilateral chest tubes in place. No significant change from one day earlier.
--- NOTE | 2023-04-04 07:51 | P.PN ---
Subjective Progress Note Date: 04/04/23 Principal diagnosis: Severe bicuspid aortic valve stenosis with fusion of the right and noncoronary cusps of the aortic valve, coronary artery disease, unstable angina, reduced lef t ventricular systolic function. History of severe aortic stenosis, hypertension, hyperlipidemia, hypothyroid, previous tobacco dependence, recent cessation of marijuana use, covid in 2020 (remains unvaccinated), obesity, and family history of premature CAD POD #3 triple vessel coronary artery bypass grafting using the totally skeletonized in situ left internal mammary artery to the diagonal artery in a [id number] fashion then to the left anterior descending artery in an end-to-side fashion, reverse saphenous vein graft from the aorta to the ramus intermedius artery, aortic valve replacement using a 23 mm Inspiris pericardial bioprosthesis, exclusion of the left atrial appendage using a 35 mm AtriCure clip, bilateral greater saphenous vein endoscopic harvesting, intraoperative transesophageal echocardiogram and epi-aortic ultrasound, graft flow measurements using the Whimseybox system Postoperative acute blood loss anemia and thrombocytopenia, expected given hemodilution and cardiopulmonary bypass bump along with preoperative thrombocytopenia The patient was seen and examined this morning sitting up in a recliner in the intensive care unit in no acute distress eating breakfast. He states post surgical chest pain is better controlled today, denies shortness of breath. States he got some sleep last night after melatonin given. Currently in sinus rhythm with left bundle branch block with frequent PACs, lopressor increased yesterday and oral amiodarone initiated. Blood pressure remains soft, levo discontinued and patient started on sharonda. Lab work, chest x-ray reviewed. Right internal jugular cordis, right radial arterial line, left/right pleural chest tubes all remain. Patient reports ambulating out to the hallway this morning. Remains on 3 L nasal cannula, able to achieve 750-1000 mL on his incentive spirometry with better effort, weak cough. Urine output better, IV lasix given yesterday. No other new concerns. Objective - Vital Signs Vital signs: Vital Signs Temp 98.5 F 04/04/23 04:00 Pulse 99 04/04/23 07:00 Resp 14 04/04/23 07:00 BP 93/70 04/04/23 04:15 Pulse Ox 93 L 04/04/23 07:00 FiO2 5 04/02/23 00:00 Intake & Output 04/03/23 04/04/2304/04/23 18:59 06:59 18:59 Intake Total 867.379 9880.823 46 Output Total 1485 880 30 Balance -633.317 931.823 16 Weight 103.5 kg 102.1 kg Intake: IV 772 562 46 Pressure Bag (0.9 Sodium 72 72 6 Chloride) Sodium Chloride 0.9% 1, 600 490 40 000 ml @ 50 mls/hr IV . Q20H [facility] Rx#:[id number] amiodarone 100 Intake, IV Titration 79.683 169.823 Amount Insulin Regular 100 unit 5.353 In Sodium Chloride 0.9% 100 ml @ Per Protocol IV .Q0M [facility] Rx#:[id number] Norepinephrine 4 mg In 69.729 Sodium Chloride 0.9% 250 ml @ 0.03 MCG/KG/MIN 10. 756 mls/hr IV .[id number] [facility] Rx#:[id number] Phenylephrine 40 mg In 4.601 169.823 Sodium Chloride 0.9% 250 ml @ 0.5 MCG/KG/MIN 19. 717 mls/hr IV .[id number] [facility] Rx#:[id number] Oral 1080 Output: Chest Tube Drainage 580 280 Chest Tube Bilateral 30 Mediastinal Chest Tube Left Lateral 440 130 Chest Chest Tube Right Lateral 110 150 Chest Urine 905 600 30 Other: Voiding Method Indwelling Catheter Indwelling Catheter ABP, PAP, CO, CI - Last Documented Arterial Blood Pressure 92/41 Pulmonary Artery Pressure 74/50 Cardiac Output 7.2 Cardiac Index 3.4 - Exam CONSTITUTIONAL: Appears comfortable, cooperative, no acute distress RESPIRATORY: Lungs sounds diminished bilaterally. Respirations even, nonlabored. Currently on 3 L nasal cannula with oxygen saturation 93%. Able to achieve 750-1000 mL on incentive spirometry. Weak cough. CARDIOVASCULAR: S1, S2 present. Regular rate and rhythm, sinus rhythm with LBBB and frequent PACs on telemetry. Sternum stable. Palpable peripheral pulses bilaterally. No edema present. No calf pain or tenderness noted. Heart hugger in place with patient demonstrating appropriate use. Antiembolism stockings, SCDs present. GASTROINTESTINAL: Abdomen soft, nontender, nondistended. Active bowel sounds present 4 quadrants. Tolerating diet. Positive belching, negative flatus GENITOURINARY: Liu present draining clear, yellow urine. Output overnight 30-65 mL per hour, 675 mL after lasix given, 1505 mL in the last 24 hours INTEGUMENTARY: Skin is warm and dry with evidence of good perfusion. Anterior chest incision well approximated and covered with dry intact dressing. Bilateral lower extremity EVH sites well approximated without redness NEUROLOGIC: Cranial nerves II through XII intact MUSKULOSKELETAL: Able to move all extremities, strength equal bilaterally PSYCHIATRIC: Alert and oriented to person place and time, appropriate affect, intact judgment and insight INVASIVE LINES AND TUBES: Left/right pleural chest tubes present and connected to wall suction, no air leaks present. Left pleural chest tube with 120 mL serosanguineous drainage overnight, 250 mL in the last 24 hours. Right pleural chest tube with 130 mL serosanguineous drainage overnight, 200 mL in the last 24 hours. A/V epicardial pacemaker wires present, VVI backup 50 BPM. Right internal jugular cordis, right radial arterial line present. Last CVP 9 - Allied health notes Allied health notes reviewed: nursing - Labs CBC & Chem 7: 04/04/23 04:52 04/04/23 04:52 Labs: Abnormal Lab Results - Last 24 Hours (Table) 04/03/23 04/03/23 04/03/23 Range/Units 11:36 16:34 20:46 RBC (4.30-5.90) m/uL Hgb (13.0-17.5) gm/dL Hct (39.0-53.0) % Plt Count (150-450) k/uL Sodium (137-145) mmol/L BUN (9-20) mg/dL Creatinine (0.66-1.25) mg/dL Glucose (74-99) mg/dL POC Glucose (mg/dL) 126 H 130 H 143 H (70-110) mg/dL Calcium (8.4-10.2) mg/dL AST (17-59) U/L Total Protein (6.3-8.2) g/dL Albumin (3.5-5.0) g/dL 04/04/23 04/04/23 Range/Units 04:52 04:52 RBC 2.37 L (4.30-5.90) m/uL Hgb 7.3 L (13.0-17.5) gm/dL Hct 21.9 L (39.0-53.0) % Plt Count 89 L (150-450) k/uL Sodium 136 L (137-145) mmol/L BUN 25 H (9-20) mg/dL Creatinine 1.44 H (0.66-1.25) mg/dL Glucose 114 H (74-99) mg/dL POC Glucose (mg/dL) (70-110) mg/dL Calcium 7.9 L (8.4-10.2) mg/dL AST 66 H (17-59) U/L Total Protein 5.2 L (6.3-8.2) g/dL Albumin 3.1 L (3.5-5.0) g/dL - Imaging and Cardiology Chest x-ray: report reviewed, image reviewed Assessment and Plan Assessment: Severe bicuspid aortic valve stenosis with fusion of the right and noncoronary cusps of the aortic valve, status post bioprosthetic aortic valve replacement Coronary artery disease, unstable angina, status post three-vessel CABG Reduced left ventricular systolic function, EF 45-50% Hypertension, currently hypotensive on sharonda Hyperlipidemia, treated, chol 148, LDL 84.5 Hypothyroid, TSH 2.39 Previous tobacco dependence, FEV 1 69% Recent cessation of marijuana use Covid in 2020 (remains unvaccinated) Obesity Family history of premature CAD Postoperative acute blood loss anemia and thrombocytopenia, expected given hemodilution and cardiopulmonary bypass bump along with preoperative thrombocytopenia Plan: Continue to maximize medical therapy with low dose ASA, statin, Plavix, beta nilson. Will increase beta nilson therapy as tolerated, increased to 25 mg TID today Wean sharonda as tolerated, will add midodrine for blood pressure support Continue amiodarone for afib prophylaxis Wean oxygen as tolerated. Encourage use of incentive spirometry 10 times every hour while awake. Bronchodilators per pulmonology Will monitor daily labs and x-rays. Electrolyte replacement per protocol. No lasix today Increase activity, ambulate as tolerated. PT/OT/cardiac rehab consulted GI/DVT prophylaxis Pain control per current medication regimen. No Toradol due to thrombocytopenia Insulin management per internal medicine. Patient is not diabetic, preoperative hemoglobin A1c 6% Will discontinue right chest tube, continue left pleural chest tube for another 24 hours Continue Liu catheter for the 24 hours for strict accurate intake and output Daily weights More recommendations to follow
[2023-04-04] MEDS ORDERED: CALCIUM GLUCONATE IN NACL 1 GM in SALINE 1 100ML.BAG IVPB ONE (08:00)
[2023-04-04] MEDS: MIDODRINE 5 MG TAB PO SCH ×2 (08:03→16:35)
[2023-04-04] MEDS: CLOPIDOGREL 75 MG TAB PO SCH (08:04)
[2023-04-04] MEDS: METOPROLOL TARTRATE 25 MG TAB PO SCH ×3 (08:04→23:07)
[2023-04-04] MEDS: ASPIRIN 81 MG PO SCH (08:04)
[2023-04-04] MEDS: ATORVASTATIN 40 MG TAB PO SCH (08:04)
[2023-04-04] MEDS: AMIODARONE 200 MG TAB PO SCH ×2 (08:04→20:34)
[2023-04-04] MEDS: MAGNESIUM HYDROXIDE 2,400 MG/10 ML CUP PO PRN (08:05)
[2023-04-04] MEDS: IPRATROPIUM-ALBUTEROL 3 ML NEB INHALATION SCH ×4 (08:05→20:06)
--- NOTE | 2023-04-04 10:50 | P.PN ---
Subjective Progress Note Date: 04/04/23 This is Sb Espinoza NP, I'm dictating on behalf of Dr. Britt's H&P and A&P. Patient was interviewed and examined. Patient is a pleasant 63-year-old male who is postoperative day 2 triple bypass and aortic valve replacement. Patient reports that he is feeling better today. Patient had 3 chest tubes, GERALD drains, and his [place] removed yesterday, and states it was much easier for him to transfer to the chair this morning. Patient's telemetry demonstrates a left bundle branch block with quadrigeminy. He reports chest pain with deep breathing and movement. He reports some shortness of breath. He denies palpitations. GENERAL: Well-appearing, well-nourished and in no acute distress. NECK: Supple without JVD or thyromegaly. LUNGS: Breath sounds clear to auscultation bilaterally. Respiration equal and unlabored. No wheezes, rales or rhonchi. HEART: Regular rate and rhythm without murmurs, rubs or gallops. S1 and S2 heard. EXTREMITIES: Normal range of motion, no edema. No clubbing or cyanosis. Peripheral pulses intact and strong. VITALS: Temp 98.5, pulse 82, respirations 14, blood pressure 116/52, O2 saturation 93% on 3 L TELEMETRY: Normal sinus rhythm with left bundle branch block and PVCs LABS: White count 9.5, hemoglobin 7.3, platelets 89, sodium 136, potassium 4.1, chl oride 106, B1 25, creatinine 1.44, calcium 7.9 IMPRESSION: 1. Status post triple vessel bypass with aortic valve replacement 2. Coronary artery disease 3. Hypertension 4. Hyperlipidemia 5. Hypothyroidism 6. Remote history of tobacco use, marijuana use PLAN: Continue current medications. Continue current management. Further recommendations based on patient's clinical course. Objective - Vital Signs Vital signs: Vital Signs Temp 98.5 F 04/04/23 04:00 Pulse 92 04/04/23 10:30 Resp 11 L 04/04/23 10:30 BP 93/70 04/04/23 04:15 Pulse Ox 93 L 04/04/23 10:30 FiO2 5 04/02/23 00:00 Intake & Output 04/03/23 04/04/23 04/04/23 18:59 06:59 18:59 Intake Total 317.590 6353.823 379.970 Output Total 1485 880 190 Balance -633.317 931.823 189.970 Weight 103.5 kg 102.1 kg Intake: IV 772 562 264 Calcium Gluconate in NaCl 100 2 gm In Saline 1 100ml. bag @ 100 mls/hr IVPB ONCE [facility] Rx#:[id number] Pressure Bag (0.9 Sodium 72 72 24 Chloride) Sodium Chloride 0.9% 1, 600 490 140 000 ml @ 20 mls/hr IV . Q24H [facility] Rx#:[id number] amiodarone 100 Intake, IV Titration 79.683 169.823 15.970 Amount Insulin Regular 100 unit 5.353 In Sodium Chloride 0.9% 100 ml @ Per Protocol IV .Q0M [facility] Rx#:[id number] Norepinephrine 4 mg In 69.729 Sodium Chloride 0.9% 250 ml @ 0.03 MCG/KG/MIN 10. 756 mls/hr IV .[id number] [facility] Rx#:[id number] Phenylephrine 40 mg In 4.601 169.823 15.970 Sodium Chloride 0.9% 250 ml @ 0.5 MCG/KG/MIN 19. 717 mls/hr IV .[id number] [facility] Rx#:[id number] Oral 1080 100 Output: Chest Tube Drainage 580 280 40 Chest Tube Bilateral 30 Mediastinal Chest Tube Left Lateral 440 130 20 Chest Chest Tube Right Lateral 110 150 20 Chest Urine 905 600 150 Other: Voiding Method Indwelling Catheter Indwelling Catheter Indwelling Catheter ABP, PAP, CO, CI - Last Documented Arterial Blood Pressure 110/47 Pulmonary Artery Pressure 74/50 Cardiac Output 7.2 Cardiac Index 3.4 - Labs CBC & Chem 7: 04/04/23 04:52 04/04/23 04:52 Labs: Abnormal Lab Results - Last 24 Hours (Table) 04/03/23 04/03/23 04/03/23 Range/Units 11:36 16:34 20:46 RBC (4.30-5.90) m/uL Hgb (13.0-17.5) gm/dL Hct (39.0-53.0) % Plt Count (150-450) k/uL Sodium (137-145) mmol/L BUN (9-20) mg/dL Creatinine (0.66-1.25) mg/dL Glucose (74-99) mg/dL POC Glucose (mg/dL) 126 H 130 H 143 H (70-110) mg/dL Calcium (8.4-10.2) mg/dL AST (17-59) U/L Total Protein (6.3-8.2) g/dL Albumin (3.5-5.0) g/dL 04/04/23 04/04/23 Range/Units 04:52 04:52 RBC 2.37 L (4.30-5.90) m/uL Hgb 7.3 L (13.0-17.5) gm/dL Hct 21.9 L (39.0-53.0) % Plt Count 89 L (150-450) k/uL Sodium 136 L (137-145) mmol/L BUN 25 H (9-20) mg/dL Creatinine 1.44 H (0.66-1.25) mg/dL Glucose 114 H (74-99) mg/dL POC Glucose (mg/dL) (70-110) mg/dL Calcium 7.9 L (8.4-10.2) mg/dL AST 66 H (17-59) U/L Total Protein 5.2 L (6.3-8.2) g/dL Albumin 3.1 L (3.5-5.0) g/dL
[2023-04-04 11:13] LABS: Glucose,Whole Blood 187 mg/dL (70-110)
--- NOTE | 2023-04-04 11:29 | P.PN ---
Subjective Progress Note Date: 04/04/23 Principal diagnosis: Coronary disease/aortic stenosis. Pulmonary consultation dated 03/31/2023. This is a pleasant 62-year-old male that we are currently evaluating, in room 361, for possible bypass grafting, and aortic valve replacement, to be done on April 01. We were consulted for preoperative evaluation. The patient was admitted to the hospital on March 28. The cardiac catheterization done on the same day revealed significant coronary disease, as well as significant aortic stenosis. The patient was seen by cardiothoracic surgery, and surgeries plan for tomorrow. Currently, the patient's on room air. Is not receiving any IV fluids. He has no history of any lung disease, but did smoke when he was very young for a year or 2. He denies any shortness of breath, cough, wheezing, chest tightness, or phlegm production. His medical history includes unstable angina, hypothyroidism, hypertension, and hyperlipidemia. The patient's home medications included aspirin, Synthroid, losartan/hydrochlorothiazide, metoprolol, sublingual nitroglycerin, and Crestor. Current laboratory data includes a white count of 5.6, hemoglobin 14.9, hematocrit 45.1, and a platelet count of 149,000. Sodium, potassium, chloride, CO2, anion gap, BUN and creatinine, all normal. So was the rest of the comprehensive metabolic profile. Chest x-ray to my eye, was normal. Progress note dated 04/02/2023. 62-year-old male, postop day #1, status post three-vessel bypass grafting, aorti c valve replacement, and left atrial appendage ligation. The patient had surgery yesterday. The patient is currently resting comfortably in the intensive care unit, room 267. Other than for pain at the surgical site, he appears to be doing relatively well. The patient's currently on 4 L of oxygen. He is getting saline at 50 mL an hour, norepinephrine at 2 mcg/m, and insulin drip at 1 unit an hour. White count 5, hemoglobin 8.1, hematocrit 24.1, and platelet count 75,000. Sodium 139, potassium 4.3, chlorides 108, CO2 25, BUN 18, and creatinine 1.17. Albumin is 3.3. Magnesium 2.5. Chest x-ray shows interval extubation, low lung volumes, cardiomegaly, and some bibasilar atelectasis. Progress note dated 04/03/2023. 62-year-old male postop day #2, status post three-vessel bypass grafting, aortic valve replacement, and left atrial appendage ligation. The patient's doing relatively well. He is currently on 3 L of oxygen. He is getting saline at 40 mL an hour. His norepinephrine dose is 1 mcg/m. Chest tubes came out today. He continues to work on incentive spirometer. White count 8.3, hemoglobin 7.5, hematocrit 22.6, and platelet count 66,000. Sodium 136, potassium 4.2, chlorides 105, CO2 25, BUN 19, creatinine 1.29. Chest x-rays essentially unchanged, with some atelectatic changes at the bases. Progress note dated the 2022. 63-year-old male seen today in room 267. He's postop day #3, status post three- vessel bypass grafting, aortic valve replacement, and left atrial appendage ligation. Patient is doing about the same. The patient remains on oxygen at 3 L. He is doing a bit better on his incentive spirometer, getting about 750 mL. He is on saline at 20 mL an hour. He is also on Michael-Synephrine 0.15 mcg/kg/m. He continues to be followed by cardiothoracic surgery. Today's labs include a white count 9.5, hemoglobin 7.3, hematocrit 21.9, and a platelet count of 89,000. Sodium 136, potassium 4.1, chlorides 106, CO2 22, normal anion gap, E1 25, and creatinine 1.44. Glucose is 114. Chest x-ray shows persistent low lung volumes, cardiomegaly, and bibasilar left greater than right atelectasis. Objective - Vital Signs Vital signs: Vital Signs Temp 98.5 F 04/04/23 04:00 Pulse 81 04/04/23 11:00 Resp 20 04/04/23 11:00 BP 93/70 04/04/23 04:15 Pulse Ox 94 L 04/04/23 11:00 FiO2 5 04/02/23 00:00 Intake & Output 04/03/23 04/04/23 04/04/23 18:59 06:59 18:59 Intake Total 164.666 5096.823 405.970 Output Total 1485 880 230 Balance -633.317 931.823 175.970 Weight 103.5 kg 102.1 kg Intake: IV 772 562 290 Calcium Gluconate in NaCl 100 2 gm In Saline 1 100ml. bag @ 100 mls/hr IVPB ONCE [facility] Rx#:[id number] Pressure Bag (0.9 Sodium 72 72 30 Chloride) Sodium Chloride 0.9% 1, 600 490 160 000 ml @ 20 mls/hr IV . Q24H [facility] Rx#:[id number] amiodarone 100 Intake, IV Titration 79.683 169.823 15.970 Amount Insulin Regular 100 unit 5.353 In Sodium Chloride 0.9% 100 ml @ Per Protocol IV .Q0M [facility] Rx#:[id number] Norepinephrine 4 mg In 69.729 Sodium Chloride 0.9% 250 ml @ 0.03 MCG/KG/MIN 10. 756 mls/hr IV .[id number] [facility] Rx#:[id number] Phenylephrine 40 mg In 4.601 169.823 15.970 Sodium Chloride 0.9% 250 ml @ 0.5 MCG/KG/MIN 19. 717 mls/hr IV .[id number] [facility] Rx#:[id number] Oral 1080 100 Output: Chest Tube Drainage 580 280 40 Chest Tube Bilateral 30 Mediastinal Chest Tube Left Lateral 440 130 20 Chest Chest Tube Right Lateral 110 150 20 Chest Urine 905 600 190 Other: Voiding Method Indwelling Catheter Indwelling Catheter Indwelling Catheter ABP, PAP, CO, CI - Last Documented Arterial Blood Pressure 111/54 Pulmonary Artery Pressure 74/50 Cardiac Output 7.2 Cardiac Index 3.4 - Exam No acute distress, oriented 3. No conversational dyspnea or use of accessory muscles. Currently on 3 L of oxygen. HEENT examination is grossly unremarkable. Mucous membranes are moist. No oral lesions. Neck supple. Full range of motion. No adenopathy thyromegaly or neck vein distention. Cardiovascular examination reveals regular rhythm rate. S1-S2 normal. No S3 or S4. No discernible murmur noted. Heart rate 81 bpm. Lungs reveal clear breath sounds. Breath sounds are equal bilaterally. No a dventitious lung sounds including wheezes rhonchi or crackles. 3 L saturation is 94%. Abdomen soft bowel sounds are heard. No masses or tenderness. Extremities are intact. No cyanosis clubbing or edema. Skin is without rash or lesion. Neurologic examination is brief but nonfocal. - Labs CBC & Chem 7: 04/04/23 04:52 04/04/23 04:52 Labs: Abnormal Lab Results - Last 24 Hours (Table) 04/03/23 04/03/23 04/03/23 Range/Units 11:36 16:34 20:46 RBC (4.30-5.90) m/uL Hgb (13.0-17.5) gm/dL Hct (39.0-53.0) % Plt Count (150-450) k/uL Sodium (137-145) mmol/L BUN (9-20) mg/dL Creatinine (0.66-1.25) mg/dL Glucose (74-99) mg/dL POC Glucose (mg/dL) 126 H 130 H 143 H (70-110) mg/dL Calcium (8.4-10.2) mg/dL AST (17-59) U/L Total Protein (6.3-8.2) g/dL Albumin (3.5-5.0) g/dL 04/04/23 04/04/23 04/04/23 Range/Units 04:52 04:52 11:12 RBC 2.37 L (4.30-5.90) m/uL Hgb 7.3 L (13.0-17.5) gm/dL Hct 21.9 L (39.0-53.0) % Plt Count 89 L (150-450) k/uL Sodium 136 L (137-145) mmol/L BUN 25 H (9-20) mg/dL Creatinine 1.44 H (0.66-1.25) mg/dL Glucose 114 H (74-99) mg/dL POC Glucose (mg/dL) 187 H (70-110) mg/dL Calcium 7.9 L (8.4-10.2) mg/dL AST 66 H (17-59) U/L Total Protein 5.2 L (6.3-8.2) g/dL Albumin 3.1 L (3.5-5.0) g/dL Assessment and Plan Assessment: Coronary artery disease, and severe aortic stenosis, with anticipated bypass grafting, and aortic valve replacement, April 01. Postop day #3, status post three-vessel bypass grafting, aortic valve replacement, and left atrial appendage ligation. Routine postoperative ventilator management. No significant intrinsic pulmonary disease. History of hypertension. History of hyperlipidemia. History of hypothyroidism. Unstable angina. Plan: Plan dated 03/31/2023. The patient was seen today and evaluated. Labs, x-rays, and medications are reviewed. The patient appears not to have any intrinsic pulmonary disease. Locally was very young, for just a year or so. 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 The patient is scheduled to undergo bypass grafting, and aortic valve replacement, April 01. I did explain our role, and his care, including helping him be extricated or liberated from mechanical ventilation as soon as possible, as well as seeing him during his hospital stay, and making sure that his lungs are healthy, and he doesn't develop pleural effusion, pneumonia, or lobar collapse/atelectasis. We also mentioned to the patient that the incentive spirometer, would be very important, in his postoperative care. Plan dated 04/02/2023. The patient was not seen yesterday as he was in the operating room. Today is postoperative day #1. The patient had a three-vessel bypass grafting, aortic valve replacement, and left atrial appendage ligation. The patient's currently on saline at 50 mL an hour, and insulin drip, and is still receiving no repinephrine for blood pressure support. Labs, x-rays, and medications are reviewed. Prognosis is guarded. We encourage the patient to deep breathe, cough, and clear secretions. We also encouraged the patient has seen some spirometer every hour. We will continue to follow, and make recommendations along the way. Plan dated 04/03/2023. The patient appears a bit better. He continues to improve, cough, and clear secretions. He is also encouraged to use his incentive spirometer, every hour while awake. Labs, x-rays, medications are reviewed. The patient remains on norepinephrine at 1 mcg/m. He is getting saline at 40 mL an hour. Oxygen has been titrated down to 3 L. We will continue to follow make recommendations along the way. Plan dated 04/04/2023. The patient continues on 3 L of oxygen. Chest x-ray shows some bibasilar atelectasis, left greater than right. He is doing a bit better on his incentive spirometer. He remains on Michael-Synephrine 0.15 mcg/kg/m. He is getting saline at 20 mL an hour. Labs, x-rays, medications are all reviewed. Prognosis is guarded. We will continue to follow the patient and make recommendations along the way. Time with Patient: Greater than 30
[2023-04-04 16:33] LABS: Glucose,Whole Blood 133 mg/dL (70-110)
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
[2023-04-04] MEDS: PHENYLEPHRINE 40 MG in SODIUM CHLORIDE 0.9% 250 ML IV SCH ×2 (19:37→20:36)
[2023-04-04 19:43] LABS: Glucose,Whole Blood 113 mg/dL (70-110)
[2023-04-04] MEDS: HYDROcodone/APAP 5-325MG 1 EACH TAB PO PRN (19:48)
[2023-04-04] MEDS: SENNOSIDES-DOCUSATE SODIUM 1 EACH TAB PO SCH (20:33)
[2023-04-04] MEDS: MELATONIN 3 MG TABLET PO PRN (21:57)
[2023-04-05] MEDS: HYDROcodone/APAP 5-325MG 1 EACH TAB PO PRN ×3 (04:50→22:19)
[2023-04-05] MEDS: INSULIN ASPART (NovoLOG) 100 UNIT/ML VIAL SQ SCH ×4 (06:20→21:50)
[2023-04-05 06:21] LABS: Glucose,Whole Blood 125 mg/dL (70-110)
[2023-04-05 06:34] LABS: Basophils % (A) 0 %; Eosinophils # (A) 0.2 k/uL (0-0.7); Eosinophils % (A) 3 %; HCT 22.2 % (39.0-53.0); HGB 7.3 gm/dL (13.0-17.5); Lymphocytes # (A) 1.3 k/uL (1.0-4.8); Lymphocytes % (A) 17 %; MCH 30.8 pg (25.0-35.0); MCHC 32.8 g/dL (31.0-37.0); MCV 93.8 fL (80.0-100.0); Mean Platelet Volume 9.1; Monocytes # (A) 0.4 k/uL (0-1.0); Monocytes % (A) 5 %; Neutrophils # (A) 5.4 k/uL (1.3-7.7); Neutrophils % (A) 73 %; RBC 2.36 m/uL (4.30-5.90); RDW 14.1 % (11.5-15.5); WBC 7.4 k/uL (3.8-10.6)
[2023-04-05] MEDS: PANTOPRAZOLE 40 MG TABLET PO SCH (06:37)
[2023-04-05] MEDS: LEVOTHYROXINE 75 MCG TAB PO SCH (06:37)
[2023-04-05] MEDS: ASCORBIC ACID 500 MG TAB PO SCH ×2 (06:37→16:28)
[2023-04-05] MEDS: FERROUS SULFATE 325 MG TAB PO SCH ×2 (06:37→16:29)
[2023-04-05] MEDS: MIDODRINE 5 MG TAB PO SCH ×2 (06:37→16:29)
[2023-04-05 06:38] LABS: Platelet Count 97 k/uL (150-450)
[2023-04-05 06:50] LABS: Calcium 7.9 mg/dL (8.4-10.2); Potassium 4.2 mmol/L (3.5-5.1)
--- NOTE | 2023-04-05 07:10 | XR ---
EXAMINATION TYPE: XR chest 1V portable DATE OF EXAM: 04/05/2023 7:05 AM COMPARISON: Chest radiographs from N 23 TECHNIQUE: XR chest 1V portable Frontal view of the chest. CLINICAL INDICATION:Male, 63 years old with history of post cardiac surgery; FINDINGS: Lungs/Pleura: There is no evidence of pleural effusion, focal consolidation, or pneumothorax. Pulmonary vascularity: Unremarkable. Heart/mediastinum: Cardiomediastinal silhouette is enlarged and stable. Atherosclerotic calcificatio ns are seen in the aorta. Left atrial appendage occlusion device is present. Musculoskeletal: No acute osseous pathology. Midline sternotomy wires are noted. Left thoracotomy tube with tip in appropriate position. Right swan scans catheter sheath remains in place. The right thoracotomy tube appears absent. IMPRESSION: Post operative changes stable exam from one day prior no evidence for pneumothorax.
--- NOTE | 2023-04-05 07:37 | P.PN ---
Subjective Progress Note Date: 04/05/23 PROGRESS NOTE The patient is 63-year-old male who was found to have significant obstructive disease and aortic valve disease, he underwent cardiac catheterization by Dr. Maciel and was found to have significant disease in the LAD and the ramus intermedius with evidence of aortic valve disease. His ejection fraction was 45% and he had severe aortic stenosis by echocardiography preoperatively. He underwent aortic valve replacement with size 23 with BENAVIDES to diagonal branch and side to side to the LAD and SVG to the ramus intermedius. He is sitting up in the chair, feels better, in sinus mechanism with IVCD and PACs. He has mild chest wall discomfort. His breathing is stable. He continues to have 1 chest tube. He denies any nausea or vomiting. He is on no vasopressors. Medications: Amiodarone 400 mg twice a day, aspirin, Lipitor 40 mg daily, Plavix 75 mg daily, metoprolol 25 mg every 8 hours, midodrine 5 mg twice a day PHYSICAL EXAMINATION: Blood pressure 93/57 heart rate 90s LUNGS: Clear to auscultation HEART: Regular rate and rhythm, S1, S2. No S3. systolic ejection murmur ABDOMEN: Soft, nontender, no organomegaly EXTREMETIES: No edema LAB: BUN 29, creatinine 1.38, hemoglobin 7.3 IMPRESSION: 1. Status post aortic valve replacement and CABG 2. Hyperlipidemia 3. Left bundle branch block 4. Anemia postoperatively PLAN: 1. Continue supportive care 2. Increase physical activity 3. Probable remove chest tube today 4. Depending on his progress further recommendations will be made Objective - Vital Signs Vital signs: Vital Signs Temp 98.1 F 04/05/23 04:00 Pulse 93 04/05/23 07:00 Resp 20 04/05/23 07:00 BP 93/57 04/05/23 07:00 Pulse Ox 97 04/05/23 07:00 FiO2 5 04/02/23 00:00 Intake & Output 04/04/23 04/05/23 04/05/23 18:59 06:59 18:59 Intake Total 922.539 939 23 Output Total 535 595 60 Balance 387.539 344 -37 Weight 103.2 kg Intake: IV 472 279 23 Calcium Gluconate in NaCl 100 2 gm In Saline 1 100ml. bag @ 100 mls/hr IVPB [facility] Rx#:[id number] Pressure Bag (0.9 Sodium 72 39 3 Chloride) Sodium Chloride 0.9% 1, 300 240 20 000 ml @ 20 mls/hr IV . Q24H [facility] Rx#:[id number] Intake, IV Titration 50.539 Amount Phenylephrine 40 mg In 50.539 Sodium Chloride 0.9% 250 ml @ 0.5 MCG/KG/MIN 19. 717 mls/hr IV .[id number] [facility] Rx#:[id number] Oral 400 660 Output: Chest Tube Drainage 70 50 Chest Tube Left Lateral 50 50 Chest Chest Tube Right Lateral 20 Chest Urine 465 545 60 Other: Voiding Method Indwelling Catheter Indwelling Catheter ABP, PAP, CO, CI - Last Documented Arterial Blood Pressure 94/58 Pulmonary Artery Pressure 74/50 Cardiac Output 7.2 Cardiac Index 3.4 - Labs CBC & Chem 7: 04/05/23 06:15 04/05/23 06:15 Labs: Abnormal Lab Results - Last 24 Hours (Table) 04/01/23 04/01/23 04/01/23 Range/Units 08:30 10:32 11:11 RBC (4.30-5.90) m/uL Hgb (13.0-17.5) gm/dL Hct (39.0-53.0) % Plt Count (150-450) k/uL ABG pH 7.31 L 7.47 H (7.35-7.45) ABG pCO2 50 H 34 L (35-45) mmHg ABG pO2 155 H >420 H 392 H (83-108) mmHg ABG HCO3 27 H (21-25) mmol/L ABG Total CO2 27 H 28 H 26 H (19-24) mmol/L ABG O2 Saturation 98.1 H 99.6 H 99.4 H (94-97) % ABG Hematocrit 33 L 29 L (34.0-46.0) % ABG Potassium 5.3 H (3.4-4.5) mmol/L ABG Ionized Calcium 4.0 L 3.9 L (4.5-5.3) mg/dL ABG Glucose 116 H 114 H 104 H (75-99) mg/dL Hemoglobin 10.6 L 9.5 L (13.0-17.5) gm/dL Chloride (98-107) mmol/L Carbon Dioxide (22-30) mmol/L BUN (9-20) mg/dL Creatinine (0.66-1.25) mg/dL Glucose (74-99) mg/dL POC Glucose (mg/dL) (70-110) mg/dL Calcium (8.4-10.2) mg/dL Arterial Blood Potassium 5.3 H (3.4-4.5) mmol/L Arterial Blood Glucose 116 H 114 H 104 H (75-99) mg/dL 04/01/23 04/04/23 04/04/23 Range/Units 11:43 11:12 16:31 RBC (4.30-5.90) m/uL Hgb (13.0-17.5) gm/dL Hct (39.0-53.0) % Plt Count (150-450) k/uL ABG pH 7.46 H (7.35-7.45) ABG pCO2 (35-45) mmHg ABG pO2 >420 H (83-108) mmHg ABG HCO3 26 H (21-25) mmol/L ABG Total CO2 27 H (19-24) mmol/L ABG O2 Saturation 99.6 H (94-97) % ABG Hematocrit 29 L (34.0-46.0) % ABG Potassium 5.3 H (3.4-4.5) mmol/L ABG Ionized Calcium 3.9 L (4.5-5.3) mg/dL ABG Glucose 108 H (75-99) mg/dL Hemoglobin 9.4 L (13.0-17.5) gm/dL Chloride (98-107) mmol/L Carbon Dioxide (22-30) mmol/L BUN (9-20) mg/dL Creatinine (0.66-1.25) mg/dL Glucose (74-99) mg/dL POC Glucose (mg/dL) 187 H 133 H (70-110) mg/dL Calcium (8.4-10.2) mg/dL Arterial Blood Potassium 5.3 H (3.4-4.5) mmol/L Arterial Blood Glucose 108 H (75-99) mg/dL 04/04/23 04/05/23 04/05/23 Range/Units 19:42 06:15 06:15 RBC 2.36 L (4.30-5.90) m/uL Hgb 7.3 L (13.0-17.5) gm/dL Hct 22.2 L (39.0-53.0) % Plt Count 97 L (150-450) k/uL ABG pH (7.35-7.45) ABG pCO2 (35-45) mmHg ABG pO2 (83-108) mmHg ABG HCO3 (21-25) mmol/L ABG Total CO2 (19-24) mmol/L ABG O2 Saturation (94-97) % ABG Hematocrit (34.0-46.0) % ABG Potassium (3.4-4.5) mmol/L ABG Ionized Calcium (4.5-5.3) mg/dL ABG Glucose (75-99) mg/dL Hemoglobin (13.0-17.5) gm/dL Chloride 109 H (98-107) mmol/L Carbon Dioxide 19 L (22-30) mmol/L BUN 29 H (9-20) mg/dL Creatinine 1.38 H (0.66-1.25) mg/dL Glucose 113 H (74-99) mg/dL POC Glucose (mg/dL) 113 H (70-110) mg/dL Calcium 7.9 L (8.4-10.2) mg/dL Arterial Blood Potassium (3.4-4.5) mmol/L Arterial Blood Glucose (75-99) mg/dL 04/05/23 Range/Units 06:20 RBC (4.30-5.90) m/uL Hgb (13.0-17.5) gm/dL Hct (39.0-53.0) % Plt Count (150-450) k/uL ABG pH (7.35-7.45) ABG pCO2 (35-45) mmHg ABG pO2 (83-108) mmHg ABG HCO3 (21-25) mmol/L ABG Total CO2 (19-24) mmol/L ABG O2 Saturation (94-97) % ABG Hematocrit (34.0-46.0) % ABG Potassium (3.4-4.5) mmol/L ABG Ionized Calcium (4.5-5.3) mg/dL ABG Glucose (75-99) mg/dL Hemoglobin (13.0-17.5) gm/dL Chloride (98-107) mmol/L Carbon Dioxide (22-30) mmol/L BUN (9-20) mg/dL Creatinine (0.66-1.25) mg/dL Glucose (74-99) mg/dL POC Glucose (mg/dL) 125 H (70-110) mg/dL Calcium (8.4-10.2) mg/dL Arterial Blood Potassium (3.4-4.5) mmol/L Arterial Blood Glucose (75-99) mg/dL
--- NOTE | 2023-04-05 07:39 | P.PN ---
Subjective Progress Note Date: 04/05/23 Principal diagnosis: Severe bicuspid aortic valve stenosis with fusion of the right and noncoronary cusps of the aortic valve, coronary artery disease, unstable angina, reduced lef t ventricular systolic function. History of severe aortic stenosis, hypertension, hyperlipidemia, hypothyroid, previous tobacco dependence, recent cessation of marijuana use, covid in 2020 (remains unvaccinated), obesity, and family history of premature CAD POD #4 triple vessel coronary artery bypass grafting using the totally skeletonized in situ left internal mammary artery to the diagonal artery in a [id number] fashion then to the left anterior descending artery in an end-to-side fashion, reverse saphenous vein graft from the aorta to the ramus intermedius artery, aortic valve replacement using a 23 mm Inspiris pericardial bioprosthesis, exclusion of the left atrial appendage using a 35 mm AtriCure clip, bilateral greater saphenous vein endoscopic harvesting, intraoperative transesophageal echocardiogram and epi-aortic ultrasound, graft flow measurements using the [employer] system Postoperative acute blood loss anemia and thrombocytopenia, expected given hemodilution and cardiopulmonary bypass bump along with preoperative thrombocytopenia The patient was seen and examined this morning sitting up in a recliner in the intensive care unit in no acute distress. He states post surgical chest pain is better controlled today, has been taking less pain meds, denies shortness of breath. Currently in sinus rhythm with first degree AVB, left bundle branch block with frequent PVCs, lopressor increased yesterday and oral amiodarone continued. Systolic BP remains in the 90s with MAPs in the 70s, off sharonda since yesterday afternoon since midodrine initiated. Lab work, chest x-ray reviewed. Right internal jugular cordis, left pleural chest tube remains. Patient reports ambulating in the hallway 3 times yesterday. Remains on 2 L nasal cannula, able to achieve 1000 mL on his incentive spirometry with better effort, weak cough. Urine output stable. No other new concerns. Objective - Vital Signs Vital signs: Vital Signs Temp 98.1 F 04/05/23 04:00 Pulse 93 04/05/23 07:00 Resp 20 04/05/23 07:00 BP 93/57 04/05/23 07:00 Pulse Ox 97 04/05/23 07:00 FiO2 5 04/02/23 00:00 Intake & Output 04/04/23 04/05/23 04/05/23 18:59 06:59 18:59 Intake Total 922.539 939 23 Output Total 535 595 60 Balance 387.539 344 -37 Weight 103.2 kg Intake: IV 472 279 23 Calcium Gluconate in NaCl 100 2 gm In Saline 1 100ml. bag @ 100 mls/hr IVPB ONCE PRN Rx#:[id number] Pressure Bag (0.9 Sodium 72 39 3 Chloride) Sodium Chloride 0.9% 1, 300 240 20 000 ml @ 20 mls/hr IV . Q24H [facility] Rx#:[id number] Intake, IV Titration 50.539 Amount Phenylephrine 40 mg In 50.539 Sodium Chloride 0.9% 250 ml @ 0.5 MCG/KG/MIN 19. 717 mls/hr IV .[id number] [facility] Rx#:[id number] Oral 400 660 Output: Chest Tube Drainage 70 50 Chest Tube Left Lateral 50 50 Chest Chest Tube Right Lateral 20 Chest Urine 465 545 60 Other: Voiding Method Indwelling Catheter Indwelling Catheter ABP, PAP, CO, CI - Last Documented Arterial Blood Pressure 94/58 Pulmonary Artery Pressure 74/50 Cardiac Output 7.2 Cardiac Index 3.4 - Exam CONSTITUTIONAL: Appears comfortable, cooperative, no acute distress RESPIRATORY: Lungs sounds diminished bilaterally. Respirations even, nonlabored. Currently on 2 L nasal cannula with oxygen saturation 95%. Able to achieve 1000 mL on incentive spirometry. Weak cough. CARDIOVASCULAR: S1, S2 present. Regular rate and rhythm, sinus rhythm with first degree AVB, LBBB and frequent PVCs on telemetry. Sternum stable. Palpable peripheral pulses bilaterally. No edema present. No calf pain or tenderness noted. Heart hugger in place with patient demonstrating appropriate use. Antiembolism stockings, SCDs present. GASTROINTESTINAL: Abdomen soft, nontender, nondistended. Active bowel sounds present 4 quadrants. Tolerating diet. Positive flatus, negative BM since surgery GENITOURINARY: Liu present draining clear, yellow urine. Output overnight 35-60 mL per hour, 1010 mL in the last 24 hours INTEGUMENTARY: Skin is warm and dry with evidence of good perfusion. Anterior chest incision well approximated and covered with dry intact dressing. Bilateral lower extremity EVH sites well approximated without redness NEUROLOGIC: Cranial nerves II through XII intact MUSKULOSKELETAL: Able to move all extremities, strength equal bilaterally PSYCHIATRIC: Alert and oriented to person place and time, appropriate affect, intact judgment and insight INVASIVE LINES AND TUBES: Left pleural chest tube present and connected to wall suction, no air leaks present. Left pleural chest tube with 40 mL serosanguineous drainage overnight, 120 mL in the last 24 hours. A/V epicardial pacemaker wires present, grounded. Right internal jugular cordis present. Last CVP 13 - Allied health notes Allied health notes reviewed: nursing - Labs CBC & Chem 7: 04/05/23 06:15 04/05/23 06:15 Labs: Abnormal Lab Results - Last 24 Hours (Table) 04/01/23 04/01/23 04/01/23 Range/Units 08:30 10:32 11:11 RBC (4.30-5.90) m/uL Hgb (13.0-17.5) gm/dL Hct (39.0-53.0) % Plt Count (150-450) k/uL ABG pH 7.31 L 7.47 H (7.35-7.45) ABG pCO2 50 H 34 L (35-45) mmHg ABG pO2 155 H >420 H 392 H (83-108) mmHg ABG HCO3 27 H (21-25) mmol/L ABG Total CO2 27 H 28 H 26 H (19-24) mmol/L ABG O2 Saturation 98.1 H 99.6 H 99.4 H (94-97) % ABG Hematocrit 33 L 29 L (34.0-46.0) % ABG Potassium 5.3 H (3.4-4.5) mmol/L ABG Ionized Calcium 4.0 L 3.9 L (4.5-5.3) mg/dL ABG Glucose 116 H 114 H 104 H (75-99) mg/dL Hemoglobin 10.6 L 9.5 L (13.0-17.5) gm/dL Chloride (98-107) mmol/L Carbon Dioxide (22-30) mmol/L BUN (9-20) mg/dL Creatinine (0.66-1.25) mg/dL Glucose (74-99) mg/dL POC Glucose (mg/dL) (70-110) mg/dL Calcium (8.4-10.2) mg/dL Arterial Blood Potassium 5.3 H (3.4-4.5) mmol/L Arterial Blood Glucose 116 H 114 H 104 H (75-99) mg/dL 04/01/23 04/04/23 04/04/23 Range/Units 11:43 11:12 16:31 RBC (4.30-5.90) m/uL Hgb (13.0-17.5) gm/dL Hct (39.0-53.0) % Plt Count (150-450) k/uL ABG pH 7.46 H (7.35-7.45) ABG pCO2 (35-45) mmHg ABG pO2 >420 H (83-108) mmHg ABG HCO3 26 H (21-25) mmol/L ABG Total CO2 27 H (19-24) mmol/L ABG O2 Saturation 99.6 H (94-97) % ABG Hematocrit 29 L (34.0-46.0) % ABG Potassium 5.3 H (3.4-4.5) mmol/L ABG Ionized Calcium 3.9 L (4.5-5.3) mg/dL ABG Glucose 108 H (75-99) mg/dL Hemoglobin 9.4 L (13.0-17.5) gm/dL Chloride (98-107) mmol/L Carbon Dioxide (22-30) mmol/L BUN (9-20) mg/dL Creatinine (0.66-1.25) mg/dL Glucose (74-99) mg/dL POC Glucose (mg/dL) 187 H 133 H (70-110) mg/dL Calcium (8.4-10.2) mg/dL Arterial Blood Potassium 5.3 H (3.4-4.5) mmol/L Arterial Blood Glucose 108 H (75-99) mg/dL 04/04/23 04/05/23 04/05/23 Range/Units 19:42 06:15 06:15 RBC 2.36 L (4.30-5.90) m/uL Hgb 7.3 L (13.0-17.5) gm/dL Hct 22.2 L (39.0-53.0) % Plt Count 97 L (150-450) k/uL ABG pH (7.35-7.45) ABG pCO2 (35-45) mmHg ABG pO2 (83-108) mmHg ABG HCO3 (21-25) mmol/L ABG Total CO2 (19-24) mmol/L ABG O2 Saturation (94-97) % ABG Hematocrit (34.0-46.0) % ABG Potassium (3.4-4.5) mmol/L ABG Ionized Calcium (4.5-5.3) mg/dL ABG Glucose (75-99) mg/dL Hemoglobin (13.0-17.5) gm/dL Chloride 109 H (98-107) mmol/L Carbon Dioxide 19 L (22-30) mmol/L BUN 29 H (9-20) mg/dL Creatinine 1.38 H (0.66-1.25) mg/dL Glucose 113 H (74-99) mg/dL POC Glucose (mg/dL) 113 H (70-110) mg/dL Calcium 7.9 L (8.4-10.2) mg/dL Arterial Blood Potassium (3.4-4.5) mmol/L Arterial Blood Glucose (75-99) mg/dL 04/05/23 Range/Units 06:20 RBC (4.30-5.90) m/uL Hgb (13.0-17.5) gm/dL Hct (39.0-53.0) % Plt Count (150-450) k/uL ABG pH (7.35-7.45) ABG pCO2 (35-45) mmHg ABG pO2 (83-108) mmHg ABG HCO3 (21-25) mmol/L ABG Total CO2 (19-24) mmol/L ABG O2 Saturation (94-97) % ABG Hematocrit (34.0-46.0) % ABG Potassium (3.4-4.5) mmol/L ABG Ionized Calcium (4.5-5.3) mg/dL ABG Glucose (75-99) mg/dL Hemoglobin (13.0-17.5) gm/dL Chloride (98-107) mmol/L Carbon Dioxide (22-30) mmol/L BUN (9-20) mg/dL Creatinine (0.66-1.25) mg/dL Glucose (74-99) mg/dL POC Glucose (mg/dL) 125 H (70-110) mg/dL Calcium (8.4-10.2) mg/dL Arterial Blood Potassium (3.4-4.5) mmol/L Arterial Blood Glucose (75-99) mg/dL - Imaging and Cardiology Chest x-ray: report reviewed, image reviewed Assessment and Plan Assessment: Severe bicuspid aortic valve stenosis with fusion of the right and noncoronary cusps of the aortic valve, status post bioprosthetic aortic valve replacement Coronary artery disease, unstable angina, status post three-vessel CABG Reduced left ventricular systolic function, EF 45-50% Hypertension, currently hypotensive on sharonda Hyperlipidemia, treated, chol 148, LDL 84.5 Hypothyroid, TSH 2.39 Previous tobacco dependence, FEV 1 69% Recent cessation of marijuana use Covid in 2020 (remains unvaccinated) Obesity Family history of premature CAD Postoperative acute blood loss anemia and thrombocytopenia, expected given hem odilution and cardiopulmonary bypass bump along with preoperative thrombocytopenia Plan: Continue to maximize medical therapy with low dose ASA, statin, Plavix, beta nilson. Will increase beta nilson therapy as tolerated Continue midodrine for blood pressure support Continue amiodarone for afib prophylaxis Wean oxygen as tolerated. Encourage use of incentive spirometry 10 times every hour while awake. Bronchodilators per pulmonology Will monitor daily labs and x-rays. Electrolyte replacement per protocol. No lasix today Increase activity, ambulate as tolerated. PT/OT/cardiac rehab consulted GI/DVT prophylaxis Pain control per current medication regimen. No Toradol due to thrombocytopenia Insulin management per internal medicine. Patient is not diabetic, preoperative hemoglobin A1c 6% Will discontinue left chest tube Discontinue Liu catheter, may bladder scan and straight cath for >300 mL residual Strict accurate intake and output Daily weights Patient to shower daily starting tomorrow Discontinue cordis Likely will place transfer orders for [address] [place] [address] cardiac stepdown unit this afternoon More recommendations to follow
[2023-04-05] MEDS: CLOPIDOGREL 75 MG TAB PO SCH (08:30)
[2023-04-05] MEDS: AMIODARONE 200 MG TAB PO SCH ×2 (08:30→20:11)
[2023-04-05] MEDS: METOPROLOL TARTRATE 25 MG TAB PO SCH ×3 (08:30→23:26)
[2023-04-05] MEDS: ASPIRIN 81 MG PO SCH (08:30)
[2023-04-05] MEDS: ATORVASTATIN 40 MG TAB PO SCH (08:30)
[2023-04-05] MEDS: IPRATROPIUM-ALBUTEROL 3 ML NEB INHALATION SCH ×4 (09:15→20:17)
--- NOTE | 2023-04-05 09:33 | P.PN ---
Subjective Progress Note Date: 04/05/23 This is a pleasant 62-year-old male that we are currently evaluating, in room 361, for possible bypass grafting, and aortic valve replacement, to be done on April 01. We were consulted for preoperative evaluation. The patient was admitted to the hospital on March 28. The cardiac catheterization done on the same day revealed significant coronary disease, as well as significant aortic stenosis. The patient was seen by cardiothoracic surgery, and surgeries plan for tomorrow. Currently, the patient's on room air. Is not receiving any IV fluids. He has no history of any lung disease, but did smoke when he was very young for a year or 2. He denies any shortness of breath, cough, wheezing, chest tightness, or phlegm production. His medical history includes unstable angina, hypothyroidism, hypertension, and hyperlipidemia. The patient's home medications included aspirin, Synthroid, losartan/hydrochlorothiazide, metoprolol, sublingual nitroglycerin, and Crestor. Current laboratory data includes a white count of 5.6, hemoglobin 14.9, hematocrit 45.1, and a platelet count of 149,000. Sodium, potassium, chloride, CO2, anion gap, BUN and creatinine, all normal. So was the rest of the comprehensive metabolic profile. Chest x-ray to my eye, was normal. Progress note dated 04/02/2023. 62-year-old male, postop day #1, status post three-vessel bypass grafting, aortic valve replacement, and left atrial appendage ligation. The patient had surgery yesterday. The patient is currently resting comfortably in the intensive care unit, room 267. Other than for pain at the surgical site, he appears to be doing relatively well. The patient's currently on 4 L of oxygen. He is getting saline at 50 mL an hour, norepinephrine at 2 mcg/m, and insulin drip at 1 unit an hour. White count 5, hemoglobin 8.1, hematocrit 24.1, and platelet count 75,000. Sodium 139, potassium 4.3, chlorides 108, CO2 25, BUN 18, and creatinine 1.17. Albumin is 3.3. Magnesium 2.5. Chest x-ray shows interval extubation, low lung volumes, cardiomegaly, and some bibasilar atelectasis. Progress note dated 04/03/2023. 62-year-old male postop day #2, status post three-vessel bypass grafting, aortic valve replacement, and left atrial appendage ligation. The patient's doing relatively well. He is currently on 3 L of oxygen. He is getting saline at 40 mL an hour. His norepinephrine dose is 1 mcg/m. Chest tubes came out today. He continues to work on incentive spirometer. White count 8.3, hemoglobin 7.5, hematocrit 22.6, and platelet count 66,000. Sodium 136, potassium 4.2, chlorides 105, CO2 25, BUN 19, creatinine 1.29. Chest x-rays essentially unchanged, with some atelectatic changes at the bases. Progress note dated the 2022. 63-year-old male seen today in room 267. He's postop day #3, status post three- vessel bypass grafting, aortic valve replacement, and left atrial appendage ligation. Patient is doing about the same. The patient remains on oxygen at 3 L. He is doing a bit better on his incentive spirometer, getting about 750 mL. He is on saline at 20 mL an hour. He is also on Michael-Synephrine 0.15 mcg/kg/m. He continues to be followed by cardiothoracic surgery. Today's labs include a white count 9.5, hemoglobin 7.3, hematocrit 21.9, and a platelet count of 89,00 0. Sodium 136, potassium 4.1, chlorides 106, CO2 22, normal anion gap, E1 25, and creatinine 1.44. Glucose is 114. Chest x-ray shows persistent low lung volumes, cardiomegaly, and bibasilar left greater than right atelectasis. On 04/05/2023, the patient is postop day #4. The patient underwent aortic valve replacement and three-vessel bypass surgery. He is able to sit up on a recliner. Surgical 1 site is dry clean and intact. Chest x-ray shows some atelectatic change in the left lung base. The the lungs are well expanded and there is no evidence of any pneumothorax or pneumonias. The cardiac rhythm is sinus with a first-degree AV block and a left bundle branch block pattern. The patient remains on beta blockers with metoprolol 25 mg 3 times a day and the patient is also on amiodarone. The patient is on no pressors for now. He is using the incentive spirometer and is pulling approximately thousand. Chest tubes are all removed. On his cardiac rhythm, the patient is having frequent PVCs and the patient remains on accommodation of metoprolol and amiodarone. No dizziness. No chest pain. Objective - Vital Signs Vital signs: Vital Signs Temp 99.1 F 04/05/23 08:00 Pulse 103 H 04/05/23 09:25 Resp 22 04/05/23 08:00 BP 103/55 04/05/23 08:00 Pulse Ox 98 04/05/23 09:17 FiO2 21 04/05/23 09:17 Intake & Output 04/04/23 04/05/23 04/05/23 18:59 06:59 18:59 Intake Total 922.539 939 46 Output Total 535 595 110 Balance 387.539 344 -64 Weight 103.2 kg Intake: IV 472 279 46 Calcium Gluconate in NaCl 100 2 gm In Saline 1 100ml. bag @ 100 mls/hr IVPB ONCE PRN Rx#:[id number] Pressure Bag (0.9 Sodium 72 39 6 Chloride) Sodium Chloride 0.9% 1, 300 240 40 000 ml @ 20 mls/hr IV . Q24H [facility] Rx#:[id number] Intake, IV Titration 50.539 Amount Phenylephrine 40 mg In 50.539 Sodium Chloride 0.9% 250 ml @ 0.5 MCG/KG/MIN 19. 717 mls/hr IV .[id number] [facility] Rx#:[id number] Oral 400 660 Output: Chest Tube Drainage 70 50 Chest Tube Left Lateral 50 50 Chest Chest Tube Right Lateral 20 Chest Urine 465 545 110 Other: Voiding Method Indwelling Catheter Indwelling Catheter ABP, PAP, CO, CI - Last Documented Arterial Blood Pressure 94/58 Pulmonary Artery Pressure 74/50 Cardiac Output 7.2 Cardiac Index 3.4 - Exam CONSTITUTIONAL: Appears comfortable, cooperative, no acute distress RESPIRATORY: Lungs sounds diminished bilaterally. Respirations even, nonlabored. Currently on 2 L nasal cannula with oxygen saturation 95%. Able to achieve 1000 mL on incentive spirometry. Weak cough. CARDIOVASCULAR: S1, S2 present. Regular rate and rhythm, sinus rhythm with first degree AVB, LBBB and frequent PVCs on telemetry. Sternum stable. Palpable peripheral pulses bilaterally. No edema present. No calf pain or tenderness noted. Heart hugger in place with patient demonstrating appropriate use. Antiembolism stockings, SCDs present. GASTROINTESTINAL: Abdomen soft, nontender, nondistended. Active bowel sounds present 4 quadrants. Tolerating diet. Positive flatus, negative BM since surgery GENITOURINARY: Liu present draining clear, yellow urine. Output overnight 35-60 mL per hour, 1010 mL in the last 24 hours INTEGUMENTARY: Skin is warm and dry with evidence of good perfusion. Anterior chest incision well approximated and covered with dry intact dressing. Bilateral lower extremity EVH sites well approximated without redness NEUROLOGIC: Cranial nerves II through XII intact MUSKULOSKELETAL: Able to move all extremities, strength equal bilaterally PSYCHIATRIC: Alert and oriented to person place and time, appropriate affect, intact judgment and insight INVASIVE LINES AND TUBES: Left pleural chest tube present and connected to wall suction, no air leaks present. Left pleural chest tube with 40 mL serosa nguineous drainage overnight, 120 mL in the last 24 hours. A/V epicardial pacemaker wires present, grounded. Right internal jugular cordis present. Last CVP 13 - Labs CBC & Chem 7: 04/05/23 06:15 04/05/23 06:15 Labs: Abnormal Lab Results - Last 24 Hours (Table) 04/01/23 04/01/23 04/01/23 Range/Units 08:30 10:32 11:11 RBC (4.30-5.90) m/uL Hgb (13.0-17.5) gm/dL Hct (39.0-53.0) % Plt Count (150-450) k/uL ABG pH 7.31 L 7.47 H (7.35-7.45) ABG pCO2 50 H 34 L (35-45) mmHg ABG pO2 155 H >420 H 392 H (83-108) mmHg ABG HCO3 27 H (21-25) mmol/L ABG Total CO2 27 H 28 H 26 H (19-24) mmol/L ABG O2 Saturation 98.1 H 99.6 H 99.4 H (94-97) % ABG Hematocrit 33 L 29 L (34.0-46.0) % ABG Potassium 5.3 H (3.4-4.5) mmol/L ABG Ionized Calcium 4.0 L 3.9 L (4.5-5.3) mg/dL ABG Glucose 116 H 114 H 104 H (75-99) mg/dL Hemoglobin 10.6 L 9.5 L (13.0-17.5) gm/dL Chloride (98-107) mmol/L Carbon Dioxide (22-30) mmol/L BUN (9-20) mg/dL Creatinine (0.66-1.25) mg/dL Glucose (74-99) mg/dL POC Glucose (mg/dL) (70-110) mg/dL Calcium (8.4-10.2) mg/dL Arterial Blood Potassium 5.3 H (3.4-4.5) mmol/L Arterial Blood Glucose 116 H 114 H 104 H (75-99) mg/dL 04/01/23 04/04/23 04/04/23 Range/Units 11:43 11:12 16:31 RBC (4.30-5.90) m/uL Hgb (13.0-17.5) gm/dL Hct (39.0-53.0) % Plt Count (150-450) k/uL ABG pH 7.46 H (7.35-7.45) ABG pCO2 (35-45) mmHg ABG pO2 >420 H (83-108) mmHg ABG HCO3 26 H (21-25) mmol/L ABG Total CO2 27 H (19-24) mmol/L ABG O2 Saturation 99.6 H (94-97) % ABG Hematocrit 29 L (34.0-46.0) % ABG Potassium 5.3 H (3.4-4.5) mmol/L ABG Ionized Calcium 3.9 L (4.5-5.3) mg/dL ABG Glucose 108 H (75-99) mg/dL Hemoglobin 9.4 L (13.0-17.5) gm/dL Chloride (98-107) mmol/L Carbon Dioxide (22-30) mmol/L BUN (9-20) mg/dL Creatinine (0.66-1.25) mg/dL Glucose (74-99) mg/dL POC Glucose (mg/dL) 187 H 133 H (70-110) mg/dL Calcium (8.4-10.2) mg/dL Arterial Blood Potassium 5.3 H (3.4-4.5) mmol/L Arterial Blood Glucose 108 H (75-99) mg/dL 04/04/23 04/05/23 04/05/23 Range/Units 19:42 06:15 06:15 RBC 2.36 L (4.30-5.90) m/uL Hgb 7.3 L (13.0-17.5) gm/dL Hct 22.2 L (39.0-53.0) % Plt Count 97 L (150-450) k/uL ABG pH (7.35-7.45) ABG pCO2 (35-45) mmHg ABG pO2 (83-108) mmHg ABG HCO3 (21-25) mmol/L ABG Total CO2 (19-24) mmol/L ABG O2 Saturation (94-97) % ABG Hematocrit (34.0-46.0) % ABG Potassium (3.4-4.5) mmol/L ABG Ionized Calcium (4.5-5.3) mg/dL ABG Glucose (75-99) mg/dL Hemoglobin (13.0-17.5) gm/dL Chloride 109 H (98-107) mmol/L Carbon Dioxide 19 L (22-30) mmol/L BUN 29 H (9-20) mg/dL Creatinine 1.38 H (0.66-1.25) mg/dL Glucose 113 H (74-99) mg/dL POC Glucose (mg/dL) 113 H (70-110) mg/dL Calcium 7.9 L (8.4-10.2) mg/dL Arterial Blood Potassium (3.4-4.5) mmol/L Arterial Blood Glucose (75-99) mg/dL 04/05/23 Range/Units 06:20 RBC (4.30-5.90) m/uL Hgb (13.0-17.5) gm/dL Hct (39.0-53.0) % Plt Count (150-450) k/uL ABG pH (7.35-7.45) ABG pCO2 (35-45) mmHg ABG pO2 (83-108) mmHg ABG HCO3 (21-25) mmol/L ABG Total CO2 (19-24) mmol/L ABG O2 Saturation (94-97) % ABG Hematocrit (34.0-46.0) % ABG Potassium (3.4-4.5) mmol/L ABG Ionized Calcium (4.5-5.3) mg/dL ABG Glucose (75-99) mg/dL Hemoglobin (13.0-17.5) gm/dL Chloride (98-107) mmol/L Carbon Dioxide (22-30) mmol/L BUN (9-20) mg/dL Creatinine (0.66-1.25) mg/dL Glucose (74-99) mg/dL POC Glucose (mg/dL) 125 H (70-110) mg/dL Calcium (8.4-10.2) mg/dL Arterial Blood Potassium (3.4-4.5) mmol/L Arterial Blood Glucose (75-99) mg/dL Assessment and Plan Plan: Coronary artery disease, and severe aortic stenosis, with anticipated bypass grafting, and aortic valve replacement, April 01. Postop day #4, status post three-vessel bypass grafting, aortic valve replacement, and left atrial appendage ligation. Routine postoperative ventilator management. History of hypertension. History of hyperlipidemia. History of hypothyroidism. Unstable angina. Plan Patient is clinically stable hemodynamically stable and the patient is currently on room air oxygen Chest x-ray from today shows atelectatic changes in the left, no evidence of any pneumothorax. There is some postthoracotomy changes Hemoglobin is stable and the renal function is also stable with a creatinine of 1.38. Patient is using the NONO spirometer. Continue aspirin and Plavix for now. Continue metoprolol 25 mg by mouth every 8 hours. The patient will be transferred out to the medical floor with telemetry monitoring, 3 S.
[2023-04-05 11:14] LABS: Glucose,Whole Blood 131 mg/dL (70-110)
[2023-04-05 16:11] LABS: Glucose,Whole Blood 136 mg/dL (70-110)
[2023-04-05] MEDS: SENNOSIDES-DOCUSATE SODIUM 1 EACH TAB PO SCH (20:10)
[2023-04-05 20:30] LABS: Glucose,Whole Blood 138 mg/dL (70-110)
[2023-04-05] MEDS: MELATONIN 3 MG TABLET PO PRN (22:27)
--- NOTE | 2023-04-06 00:07 | P.PN ---
Subjective This is a pleasant 63 years old male with past medical history of Hyperlipidemia, Hypertension, hypothyroidism Negative with signs symptoms of coronary artery disease, he has significant triple-vessel coronary artery disease as well as severe aortic any stenosis with mild aortic regurgitation with ejection fraction about 50% on echocardiogram. He underwent coronary artery bypass grafting and aortic valve repair on 03/28. Today he is sitting up in chair on pending from mild chest pressure but no overt chest pain or dyspnea. He still have chest tube to place this morning. Liu catheter in place with a plan to be discontinued today per surgery team He was on low-dose of neosy at 0.15. He has borderline appetite. No nausea with bowel movement. No headache weakness or numbness. He follow-up with [facility] nurse practitioner. Patient Vitas looks stated, blood pressure on the low side, 91/62. On the top of the his metoprolol dose was increased today 25 twice a day to 3 times a day. At the center jeff was admitted by primary team. Chest x-ray showing persistent low lung volume with cardiomegaly with left basilar atelectasis and/or acute infiltrate. No pneumothorax with bilateral chest tubes in place. No significant change from prior chest x-ray His hemoglobin 7.5 and 7.3, creatinine 1.29 and 1.44. Platelet count 66,000 and 89,000. 04/05/2023 Patient clinically doing well, with no new complaint Liu cath understands in place he has good appetite His hemoglobin is stable at 7.3, creatinine is stable at 1.3, platelets stable and improving slowly to 97,000 Remains on aspirin and Plavix Folate is within the reference range 12.9, vitamin B12 pending Objective - Vital Signs Vital signs: Vital Signs Temp 99.1 F 04/05/23 08:00 Pulse 102 H 04/05/23 10:00 Resp 18 04/05/23 10:00 BP 120/75 04/05/23 10:00 Pulse Ox 94 L 04/05/23 10:00 FiO2 21 04/05/23 09:17 Intake & Output 04/04/23 04/05/23 04/05/23 18:59 06:59 18:59 Intake Total 922.539 939 296 Output Total 535 595 150 Balance 387.539 344 146 Weight 103.2 kg Intake: IV 472 279 46 Calcium Gluconate in NaCl 100 2 gm In Saline 1 100ml. bag @ 100 mls/hr IVPB ONCE PRN Rx#:[id number] Pressure Bag (0.9 Sodium 72 39 6 Chloride) Sodium Chloride 0.9% 1, 300 240 40 000 ml @ 20 mls/hr IV . Q24H [facility] Rx#:[id number] Intake, IV Titration 50.539 Amount Phenylephrine 40 mg In 50.539 Sodium Chloride 0.9% 250 ml @ 0.5 MCG/KG/MIN 19. 717 mls/hr IV .[id number] [facility] Rx#:[id number] Oral 400 660 250 Output: Chest Tube Drainage 70 50 Chest Tube Left Lateral 50 50 Chest Chest Tube Right Lateral 20 Chest Urine 465 545 150 Other: Voiding Method Indwelling Catheter Indwelling Catheter # Voids 1 # Bowel Movements 1 ABP, PAP, CO, CI - Last Documented Arterial Blood Pressure 94/58 Pulmonary Artery Pressure 74/50 Cardiac Output 7.2 Cardiac Index 3.4 - Exam GENERAL: The patient is alert and oriented x3, not in any acute distress. Well developed, well nourished. HEENT: Pupils are round and equally reacting to light. EOMI. No scleral icterus. No conjunctival pallor. Normocephalic, atraumatic. No pharyngeal erythema. No thyromegaly. -CARDIOVASCULAR: S1 and S2 present. No murmurs, rubs, or gallops. Surgical wound is closed and healing with persistent replaced PULMONARY: Chest is clear to auscultation, no wheezing . no crackles. ABDOMEN: Soft, nontender, nondistended, normoactive bowel sounds. No palpable organomegaly. MUSCULOSKELETAL: No joint swelling or deformity. EXTREMITIES: No cyanosis, clubbing, or pedal edema. NEUROLOGICAL: Gross neurological examination did not reveal any focal deficits. SKIN: No rashes. no petechiae. - Labs CBC & Chem 7: 04/05/23 06:15 04/05/23 06:15 Labs: Abnormal Lab Results - Last 24 Hours (Table) 04/01/23 04/01/23 04/01/23 Range/Units 08:30 10:32 11:11 RBC (4.30-5.90) m/uL Hgb (13.0-17.5) gm/dL Hct (39.0-53.0) % Plt Count (150-450) k/uL ABG pH 7.31 L 7.47 H (7.35-7.45) ABG pCO2 50 H 34 L (35-45) mmHg ABG pO2 155 H >420 H 392 H (83-108) mmHg ABG HCO3 27 H (21-25) mmol/L ABG Total CO2 27 H 28 H 26 H (19-24) mmol/L ABG O2 Saturation 98.1 H 99.6 H 99.4 H (94-97) % ABG Hematocrit 33 L 29 L (34.0-46.0) % ABG Potassium 5.3 H (3.4-4.5) mmol/L ABG Ionized Calcium 4.0 L 3.9 L (4.5-5.3) mg/dL ABG Glucose 116 H 114 H 104 H (75-99) mg/dL Hemoglobin 10.6 L 9.5 L (13.0-17.5) gm/dL Chloride (98-107) mmol/L Carbon Dioxide (22-30) mmol/L BUN (9-20) mg/dL Creatinine (0.66-1.25) mg/dL Glucose (74-99) mg/dL POC Glucose (mg/dL) (70-110) mg/dL Calcium (8.4-10.2) mg/dL Arterial Blood Potassium 5.3 H (3.4-4.5) mmol/L Arterial Blood Glucose 116 H 114 H 104 H (75-99) mg/dL 04/01/23 04/04/23 04/04/23 Range/Units 11:43 11:12 16:31 RBC (4.30-5.90) m/uL Hgb (13.0-17.5) gm/dL Hct (39.0-53.0) % Plt Count (150-450) k/uL ABG pH 7.46 H (7.35-7.45) ABG pCO2 (35-45) mmHg ABG pO2 >420 H (83-108) mmHg ABG HCO3 26 H (21-25) mmol/L ABG Total CO2 27 H (19-24) mmol/L ABG O2 Saturation 99.6 H (94-97) % ABG Hematocrit 29 L (34.0-46.0) % ABG Potassium 5.3 H (3.4-4.5) mmol/L ABG Ionized Calcium 3.9 L (4.5-5.3) mg/dL ABG Glucose 108 H (75-99) mg/dL Hemoglobin 9.4 L (13.0-17.5) gm/dL Chloride (98-107) mmol/L Carbon Dioxide (22-30) mmol/L BUN (9-20) mg/dL Creatinine (0.66-1.25) mg/dL Glucose (74-99) mg/dL POC Glucose (mg/dL) 187 H 133 H (70-110) mg/dL Calcium (8.4-10.2) mg/dL Arterial Blood Potassium 5.3 H (3.4-4.5) mmol/L Arterial Blood Glucose 108 H (75-99) mg/dL 04/04/23 04/05/23 04/05/23 Range/Units 19:42 06:15 06:15 RBC 2.36 L (4.30-5.90) m/uL Hgb 7.3 L (13.0-17.5) gm/dL Hct 22.2 L (39.0-53.0) % Plt Count 97 L (150-450) k/uL ABG pH (7.35-7.45) ABG pCO2 (35-45) mmHg ABG pO2 (83-108) mmHg ABG HCO3 (21-25) mmol/L ABG Total CO2 (19-24) mmol/L ABG O2 Saturation (94-97) % ABG Hematocrit (34.0-46.0) % ABG Potassium (3.4-4.5) mmol/L ABG Ionized Calcium (4.5-5.3) mg/dL ABG Glucose (75-99) mg/dL Hemoglobin (13.0-17.5) gm/dL Chloride 109 H (98-107) mmol/L Carbon Dioxide 19 L (22-30) mmol/L BUN 29 H (9-20) mg/dL Creatinine 1.38 H (0.66-1.25) mg/dL Glucose 113 H (74-99) mg/dL POC Glucose (mg/dL) 113 H (70-110) mg/dL Calcium 7.9 L (8.4-10.2) mg/dL Arterial Blood Potassium (3.4-4.5) mmol/L Arterial Blood Glucose (75-99) mg/dL 04/05/23 Range/Units 06:20 RBC (4.30-5.90) m/uL Hgb (13.0-17.5) gm/dL Hct (39.0-53.0) % Plt Count (150-450) k/uL ABG pH (7.35-7.45) ABG pCO2 (35-45) mmHg ABG pO2 (83-108) mmHg ABG HCO3 (21-25) mmol/L ABG Total CO2 (19-24) mmol/L ABG O2 Saturation (94-97) % ABG Hematocrit (34.0-46.0) % ABG Potassium (3.4-4.5) mmol/L ABG Ionized Calcium (4.5-5.3) mg/dL ABG Glucose (75-99) mg/dL Hemoglobin (13.0-17.5) gm/dL Chloride (98-107) mmol/L Carbon Dioxide (22-30) mmol/L BUN (9-20) mg/dL Creatinine (0.66-1.25) mg/dL Glucose (74-99) mg/dL POC Glucose (mg/dL) 125 H (70-110) mg/dL Calcium (8.4-10.2) mg/dL Arterial Blood Potassium (3.4-4.5) mmol/L Arterial Blood Glucose (75-99) mg/dL Assessment and Plan Assessment: Triple-vessel coronary artery disease status post bypass graft surgery and aortic valve repair on 03/28 Mild ischemic cardiomyopathy with ejection fraction 45-50% Postop anemia, by cytopenia with anemia and thrombocytopenia Borderline low blood pressure, symptomatic Mild acute kidney injury Hypertension Hyperlipidemia Hypothyroidism Plan: Patient currently is on aspirin and Plavix for surgery team, risks and benefits are explained for the patient and he verbalized understanding and acceptance, however he wants to discuss this treatment with surgery team. Is also on metoprolol and amiodarone Midodrine admitted by primary team, we'll monitor blood pressure and creatinine Patient is on Liu catheter. For past sulfate twice a day Checked vitamin B12 and folate Labs and medication were reviewed.. Continue same treatment. Continue with symptomatic treatment. Resume home medication. Monitor labs and vitals. DVT and GI prophylaxis. Further recommendations as per clinical course of the patient DVT prophylaxis: Deferred to surgery primary team GI Prophylaxis: Ppi Thank you for consulting us, we'll follow up with
--- NOTE | 2023-04-06 06:29 | XR ---
EXAMINATION TYPE: XR chest 2V DATE OF EXAM: 04/06/2023 COMPARISON: Chest x-ray from one day earlier and older studies HISTORY: Postoperative cardiac surgery TECHNIQUE: Frontal and lateral views of the chest are obtained. FINDINGS: Interval removal of left-sided chest tube. Overlying sternal wires and mediastinal clips a long with left atrial appendage clipping and metallic aortic valve are all redemonstrated. Low lung volumes and chronic parenchymal changes with left greater than right bibasilar opacities red emonstrated. There is small left pleural effusion. No visualized pneumothorax bilaterally. Mild cardi omegaly demonstrated. Osseous structures are intact. IMPRESSION: Persistent low lung volumes and mild cardiomegaly with left greater than right bibasilar opacities favoring atelectasis and small left pleural effusion. No pneumothorax identified bilaterall y.
[2023-04-06 06:43] LABS: HCT 21.5 % (39.0-53.0); HGB 7.1 gm/dL (13.0-17.5); Hypochromasia Slight; MCH 31.4 pg (25.0-35.0); MCHC 33.2 g/dL (31.0-37.0); MCV 94.5 fL (80.0-100.0); Platelet Count 106 k/uL (150-450); RBC 2.27 m/uL (4.30-5.90); RDW 14.4 % (11.5-15.5); WBC 6.3 k/uL (3.8-10.6)
[2023-04-06] MEDS: MIDODRINE 5 MG TAB PO SCH ×2 (06:53→17:34)
[2023-04-06] MEDS: ASCORBIC ACID 500 MG TAB PO SCH ×2 (06:53→17:34)
[2023-04-06] MEDS: FERROUS SULFATE 325 MG TAB PO SCH ×2 (06:53→17:34)
[2023-04-06] MEDS: LEVOTHYROXINE 75 MCG TAB PO SCH (06:53)
[2023-04-06] MEDS: PANTOPRAZOLE 40 MG TABLET PO SCH (06:53)
[2023-04-06 06:55] LABS: Calcium 7.7 mg/dL (8.4-10.2); Magnesium 2.7 mg/dL (1.6-2.3); Potassium 3.8 mmol/L (3.5-5.1)
[2023-04-06] MEDS: INSULIN ASPART (NovoLOG) 100 UNIT/ML VIAL SQ SCH ×4 (06:59→20:49)
--- NOTE | 2023-04-06 07:49 | P.PN ---
Subjective Progress Note Date: 04/06/23 PROGRESS NOTE The patient is 63-year-old male who was found to have significant obstructive disease and aortic valve disease, he underwent cardiac catheterization by Dr. Maciel and was found to have significant disease in the LAD and the ramus intermedius with evidence of aortic valve disease. His ejection fraction was 45% and he had severe aortic stenosis by echocardiography preoperatively. He underwent aortic valve replacement with size 23 with BENAVIDES to diagonal branch and side to side to the LAD and SVG to the ramus intermedius. He is sitting up in the chair, feels better, in sinus mechanism with IVCD and PACs. He has mild chest wall discomfort. His breathing is stable. He continues to have 1 chest tube. He denies any nausea or vomiting. He is on no vasopressors. April 06: The patient is sitting up in the chair, feels tired but denies any chest discomfort. He is in sinus mechanism with PACs and IVCD. His chest tube was removed yesterday. His blood pressure is stable. He denies any nausea or vomiting. He ambulated yesterday without difficulty. He denies any palpitations. He has no evidence of atrial fibrillation. His urinary output has been good. He is complaining of positional left shoulder discomfort Medications: Amiodarone 400 mg twice a day, aspirin, Lipitor 40 mg daily, Plavix 75 mg daily, metoprolol 25 mg every 8 hours, midodrine 5 mg twice a day PHYSICAL EXAMINATION: Blood pressure 93/ 60 heart rate 80s LUNGS: Clear to auscultation HEART: Regular rate and rhythm, S1, S2. No S3. systolic ejection murmur ABDOMEN: Soft, nontender, no organomegaly EXTREMETIES: No edema LAB: BUN 30, creatinine 1.43, hemoglobin 7.1 IMPRESSION: 1. Status post aortic valve replacement and CABG 2. Hyperlipidemia 3. Left bundle branch block 4. Anemia postoperatively 5. Acute renal injury postoperatively PLAN: 1. Continue supportive care 2. Increase physical activity 3. Follow blood pressure 4. Follow renal functions 5. Depending on his progress further recommendations will be made Objective - Vital Signs Vital signs: Vital Signs Temp 97.6 F 04/05/23 20:00 Pulse 77 04/06/23 06:00 Resp 17 04/06/23 06:00 BP 93/60 04/06/23 06:00 Pulse Ox 92 L 04/06/23 02:00 FiO2 21 04/05/23 09:17 Intake & Output 04/05/23 04/06/23 04/06/23 18:59 06:59 18:59 Intake Total 296 Output Total 475 900 Balance -179 -900 Intake: IV 46 Pressure Bag (0.9 Sodium 6 Chloride) Sodium Chloride 0.9% 1, 40 000 ml @ 20 mls/hr IV . Q24H [facility] Rx#:[id number] Oral 250 Output: Urine 475 900 Other: Voiding Method Indwelling Catheter Indwelling Catheter # Voids 1 # Bowel Movements 1 ABP, PAP, CO, CI - Last Documented Arterial Blood Pressure 94/58 Pulmonary Artery Pressure 74/50 Cardiac Output 7.2 Cardiac Index 3.4 - Labs CBC & Chem 7: 04/06/23 06:29 04/06/23 06:29 Labs: Abnormal Lab Results - Last 24 Hours (Table) 04/05/23 04/05/23 04/05/23 Range/Units 11:13 16:10 20:29 RBC (4.30-5.90) m/uL Hgb (13.0-17.5) gm/dL Hct (39.0-53.0) % Plt Count (150-450) k/uL Chloride (98-107) mmol/L BUN (9-20) mg/dL Creatinine (0.66-1.25) mg/dL Glucose (74-99) mg/dL POC Glucose (mg/dL) 131 H 136 H 138 H (70-110) mg/dL Calcium (8.4-10.2) mg/dL Magnesium (1.6-2.3) mg/dL 04/06/23 04/06/23 Range/Units 06:29 06:29 RBC 2.27 L (4.30-5.90) m/uL Hgb 7.1 L (13.0-17.5) gm/dL Hct 21.5 L (39.0-53.0) % Plt Count 106 L (150-450) k/uL Chloride 111 H (98-107) mmol/L BUN 30 H (9-20) mg/dL Creatinine 1.43 H (0.66-1.25) mg/dL Glucose 106 H (74-99) mg/dL POC Glucose (mg/dL) (70-110) mg/dL Calcium 7.7 L (8.4-10.2) mg/dL Magnesium 2.7 H (1.6-2.3) mg/dL
--- NOTE | 2023-04-06 08:00 | P.PN ---
Subjective Progress Note Date: 04/06/23 Principal diagnosis: Severe bicuspid aortic valve stenosis with fusion of the right and noncoronary cusps of the aortic valve, coronary artery disease, unstable angina, reduced lef t ventricular systolic function. History of severe aortic stenosis, hypertension, hyperlipidemia, hypothyroid, previous tobacco dependence, recent cessation of marijuana use, covid in 2020 (remains unvaccinated), obesity, and family history of premature CAD POD #5 triple vessel coronary artery bypass grafting using the totally skeletonized in situ left internal mammary artery to the diagonal artery in a [id number] fashion then to the left anterior descending artery in an end-to-side fashion, reverse saphenous vein graft from the aorta to the ramus intermedius artery, aortic valve replacement using a 23 mm Inspiris pericardial bioprosthesis, exclusion of the left atrial appendage using a 35 mm AtriCure clip, bilateral greater saphenous vein endoscopic harvesting, intraoperative transesophageal echocardiogram and epi-aortic ultrasound, graft flow measurements using the Literably system Postoperative acute blood loss anemia and thrombocytopenia, expected given hemodilution and cardiopulmonary bypass bump along with preoperative thrombocytopenia Acute kidney injury, likely from hypoperfusion The patient was seen and examined this morning sitting up in a recliner in the intensive care unit in no acute distress. He states post surgical chest pain is controlled on current medication regimen, denies shortness of breath. His complaint this morning is of not being able to get out of bed by hisself as well as occasional dizziness. Currently in sinus rhythm with first degree AVB, left bundle branch block with frequent PVCs. Systolic BP remains in the 90s with MAPs in the 70s, continues on midodrine. Lab work, chest x-ray reviewed. Currently on room air, able to achieve 1250 mL on his incentive spirometry with better effort, weak cough. Urine output stable, positive bowel movement. All lines/tubes discontinued yesterday except epicardial pacer wires. Transfer orders placed yesterday for stepdown unit, no bed available. No other new concerns. Objective - Vital Signs Vital signs: Vital Signs Temp 97.6 F 04/05/23 20:00 Pulse 77 04/06/23 06:00 Resp 17 04/06/23 06:00 BP 93/60 04/06/23 06:00 Pulse Ox 92 L 04/06/23 02:00 FiO2 21 04/05/23 09:17 Intake & Output 04/05/23 04/06/23 04/06/23 18:59 06:59 18:59 Intake Total 296 Output Total 475 900 Balance -179 -900 Intake: IV 46 Pressure Bag (0.9 Sodium 6 Chloride) Sodium Chloride 0.9% 1, 40 000 ml @ 20 mls/hr IV . Q24H [facility] Rx#:[id number] Oral 250 Output: Urine 475 900 Other: Voiding Method Indwelling Catheter Indwelling Catheter # Voids 1 # Bowel Movements 1 ABP, PAP, CO, CI - Last Documented Arterial Blood Pressure 94/58 Pulmonary Artery Pressure 74/50 Cardiac Output 7.2 Cardiac Index 3.4 - Exam CONSTITUTIONAL: Appears comfortable, cooperative, no acute distress RESPIRATORY: Lungs sounds diminished bilaterally. Respirations even, nonl abored. Currently on room air with oxygen saturation 93%. Able to achieve 1250 mL on incentive spirometry. Weak cough. CARDIOVASCULAR: S1, S2 present. Regular rate and rhythm, sinus rhythm with first degree AVB, LBBB and frequent PVCs on telemetry. Sternum stable. Palpable peripheral pulses bilaterally. No edema present. No calf pain or tenderness noted. Heart hugger in place with patient demonstrating appropriate use. Antiembolism stockings, SCDs present. GASTROINTESTINAL: Abdomen soft, nontender, nondistended. Active bowel sounds present 4 quadrants. Tolerating diet. Positive bowel movement 04/05/23 GENITOURINARY: Liu discontinued yesterday, continues to void. Output 1375 mL in the last 24 hours INTEGUMENTARY: Skin is warm and dry with evidence of good perfusion. Anterior chest incision well approximated and covered with dry intact dressing. Bilateral lower extremity EVH sites well approximated without redness NEUROLOGIC: Cranial nerves II through XII intact MUSKULOSKELETAL: Able to move all extremities, strength equal bilaterally PSYCHIATRIC: Alert and oriented to person place and time, flat affect, intact judgment and insight INVASIVE LINES AND TUBES: A/V epicardial pacemaker wires present, grounded - Allied health notes Allied health notes reviewed: nursing - Labs CBC & Chem 7: 04/06/23 06:29 04/06/23 06:29 Labs: Abnormal Lab Results - Last 24 Hours (Table) 04/05/23 04/05/23 04/05/23 Range/Units 11:13 16:10 20:29 RBC (4.30-5.90) m/uL Hgb (13.0-17.5) gm/dL Hct (39.0-53.0) % Plt Count (150-450) k/uL Chloride (98-107) mmol/L BUN (9-20) mg/dL Creatinine (0.66-1.25) mg/dL Glucose (74-99) mg/dL POC Glucose (mg/dL) 131 H 136 H 138 H (70-110) mg/dL Calcium (8.4-10.2) mg/dL Magnesium (1.6-2.3) mg/dL 04/06/23 04/06/23 Range/Units 06:29 06:29 RBC 2.27 L (4.30-5.90) m/uL Hgb 7.1 L (13.0-17.5) gm/dL Hct 21.5 L (39.0-53.0) % Plt Count 106 L (150-450) k/uL Chloride 111 H (98-107) mmol/L BUN 30 H (9-20) mg/dL Creatinine 1.43 H (0.66-1.25) mg/dL Glucose 106 H (74-99) mg/dL POC Glucose (mg/dL) (70-110) mg/dL Calcium 7.7 L (8.4-10.2) mg/dL Magnesium 2.7 H (1.6-2.3) mg/dL - Imaging and Cardiology Chest x-ray: report reviewed, image reviewed Assessment and Plan Assessment: Severe bicuspid aortic valve stenosis with fusion of the right and noncoronary cusps of the aortic valve, status post bioprosthetic aortic valve replacement Coronary artery disease, unstable angina, status post three-vessel CABG Reduced left ventricular systolic function, EF 45-50% Hypertension Hyperlipidemia, treated, chol 148, LDL 84.5 Hypothyroid, TSH 2.39 Previous tobacco dependence, FEV 1 69% Recent cessation of marijuana use Covid in 2020 (remains unvaccinated) Obesity Family history of premature CAD Postoperative acute blood loss anemia and thrombocytopenia, expected given hemodilution and cardiopulmonary bypass bump along with preoperative thrombocytopenia Acute kidney injury Plan: Continue to maximize medical therapy with low dose ASA, statin, Plavix, beta blo cker. Will increase beta nilson therapy as tolerated Continue midodrine for blood pressure support Continue amiodarone for afib prophylaxis Encourage use of incentive spirometry 10 times every hour while awake. Bronchodilators per pulmonology Will monitor daily labs and x-rays. Electrolyte replacement per protocol. No lasix today Increase activity, ambulate as tolerated. PT/OT/cardiac rehab consulted GI/DVT prophylaxis Pain control per current medication regimen. No Toradol due to thrombocytopenia Insulin management per internal medicine. Patient is not diabetic, preoperative hemoglobin A1c 6% Strict accurate intake and output Daily weights Patient to shower daily starting today Transfer orders placed for [facility] cardiac stepdown yesterday, may transfer when bed available DC planning in progress, anticipate DC to home with home care in the next 24-48 hours More recommendations to follow
[2023-04-06] MEDS: IPRATROPIUM-ALBUTEROL 3 ML NEB INHALATION PRN ×2 (08:09→14:50)
[2023-04-06] MEDS: METOPROLOL TARTRATE 25 MG TAB PO SCH ×2 (08:37→17:34)
[2023-04-06] MEDS: AMIODARONE 200 MG TAB PO SCH ×2 (08:37→20:53)
[2023-04-06] MEDS: ATORVASTATIN 40 MG TAB PO SCH (08:37)
[2023-04-06] MEDS: ASPIRIN 81 MG PO SCH (08:37)
[2023-04-06] MEDS: CLOPIDOGREL 75 MG TAB PO SCH (08:37)
[2023-04-06] MEDS ORDERED: POTASSIUM CHLORIDE ER 20 MEQ TAB.ER PO SCH (09:00)
--- NOTE | 2023-04-06 09:28 | P.PN ---
Subjective Progress Note Date: 04/06/23 This is a pleasant 62-year-old male that we are currently evaluating, in room 361, for possible bypass grafting, and aortic valve replacement, to be done on April 01. We were consulted for preoperative evaluation. The patient was admitted to the hospital on March 28. The cardiac catheterization done on the same day revealed significant coronary disease, as well as significant aortic stenosis. The patient was seen by cardiothoracic surgery, and surgeries plan for tomorrow. Currently, the patient's on room air. Is not receiving any IV fluids. He has no history of any lung disease, but did smoke when he was very young for a year or 2. He denies any shortness of breath, cough, wheezing, chest tightness, or phlegm production. His medical history includes unstable angina, hypothyroidism, hypertension, and hyperlipidemia. The patient's home medications included aspirin, Synthroid, losartan/hydrochlorothiazide, metoprolol, sublingual nitroglycerin, and Crestor. Current laboratory data includes a white count of 5.6, hemoglobin 14.9, hematocrit 45.1, and a platelet count of 149,000. Sodium, potassium, chloride, CO2, anion gap, BUN and creatinine, all normal. So was the rest of the comprehensive metabolic profile. Chest x-ray to my eye, was normal. Progress note dated 04/02/2023. 62-year-old male, postop day #1, status post three-vessel bypass grafting, aortic valve replacement, and left atrial appendage ligation. The patient had surgery yesterday. The patient is currently resting comfortably in the intensive care unit, room 267. Other than for pain at the surgical site, he appears to be doing relatively well. The patient's currently on 4 L of oxygen. He is getting saline at 50 mL an hour, norepinephrine at 2 mcg/m, and insulin drip at 1 unit an hour. White count 5, hemoglobin 8.1, hematocrit 24.1, and platelet count 75,000. Sodium 139, potassium 4.3, chlorides 108, CO2 25, BUN 18, and creatinine 1.17. Albumin is 3.3. Magnesium 2.5. Chest x-ray shows interval extubation, low lung volumes, cardiomegaly, and some bibasilar atelectasis. Progress note dated 04/03/2023. 62-year-old male postop day #2, status post three-vessel bypass grafting, aortic valve replacement, and left atrial appendage ligation. The patient's doing relatively well. He is currently on 3 L of oxygen. He is getting saline at 40 mL an hour. His norepinephrine dose is 1 mcg/m. Chest tubes came out today. He continues to work on incentive spirometer. White count 8.3, hemoglobin 7.5, hematocrit 22.6, and platelet count 66,000. Sodium 136, potassium 4.2, chlorides 105, CO2 25, BUN 19, creatinine 1.29. Chest x-rays essentially unchanged, with some atelectatic changes at the bases. Progress note dated the 2022. 63-year-old male seen today in room 267. He's postop day #3, status post three- vessel bypass grafting, aortic valve replacement, and left atrial appendage ligation. Patient is doing about the same. The patient remains on oxygen at 3 L. He is doing a bit better on his incentive spirometer, getting about 750 mL. He is on saline at 20 mL an hour. He is also on Michael-Synephrine 0.15 mcg/kg/m. He continues to be followed by cardiothoracic surgery. Today's labs include a white count 9.5, hemoglobin 7.3, hematocrit 21.9, and a platelet count of 89,00 0. Sodium 136, potassium 4.1, chlorides 106, CO2 22, normal anion gap, E1 25, and creatinine 1.44. Glucose is 114. Chest x-ray shows persistent low lung volumes, cardiomegaly, and bibasilar left greater than right atelectasis. On 04/05/2023, the patient is postop day #4. The patient underwent aortic valve replacement and three-vessel bypass surgery. He is able to sit up on a recliner. Surgical 1 site is dry clean and intact. Chest x-ray shows some atelectatic change in the left lung base. The the lungs are well expanded and there is no evidence of any pneumothorax or pneumonias. The cardiac rhythm is sinus with a first-degree AV block and a left bundle branch block pattern. The patient remains on beta blockers with metoprolol 25 mg 3 times a day and the patient is also on amiodarone. The patient is on no pressors for now. He is using the incentive spirometer and is pulling approximately thousand. Chest tubes are all removed. On his cardiac rhythm, the patient is having frequent PVCs and the patient remains on accommodation of metoprolol and amiodarone. No dizziness. No chest pain. On 04/06/2023, the patient is postop day #5. The patient continues to have significant number of activities and cardiology is aware. He seems to be in a sinus mechanism and is having frequent PACs and he does have an underlying interventricular conduction delay. He remains on amiodarone 400 mg by mouth twice a day and is also on metoprolol 25 mg every 8 hours. He is on accom modation of aspirin and Plavix. He is hemodynamically stable without any complaints. His BUN is at 30 with a creatinine of 1.4 and a sodium level is 140 with a white cell count of 6.3 and a hemoglobin of 7.1 and a platelet count of 106. He is using the senna spirometer. Is falling approximately 1000. Is currently on room air oxygen. His last chest x-ray was from yesterday and it showed no significant abnormalities other than some left basilar atelectatic changes. Otherwise, patient is tolerating his diet. No nausea. No emesis. Pain is under adequate control and the patient is ambulating. As far the chest tubes, there are all removed. Objective - Vital Signs Vital signs: Vital Signs Temp 97.6 F 04/05/23 20:00 Pulse 92 04/06/23 08:22 Resp 19 04/06/23 08:22 BP 110/64 04/06/23 08:00 Pulse Ox 95 04/06/23 08:00 FiO2 21 04/05/23 09:17 Intake & Output 04/05/23 04/06/23 04/06/23 18:59 06:59 18:59 Intake Total 296 Output Total 475 900 Balance -179 -900 Intake: IV 46 Pressure Bag (0.9 Sodium 6 Chloride) Sodium Chloride 0.9% 1, 40 000 ml @ 20 mls/hr IV . Q24H [facility] Rx#:[id number] Oral 250 Output: Urine 475 900 Other: Voiding Method Indwelling Catheter Indwelling Catheter Urinal # Voids 1 # Bowel Movements 1 ABP, PAP, CO, CI - Last Documented Arterial Blood Pressure 94/58 Pulmonary Artery Pressure 74/50 Cardiac Output 7.2 Cardiac Index 3.4 - Exam CONSTITUTIONAL: Appears comfortable, cooperative, no acute distress RESPIRATORY: Lungs sounds diminished bilaterally. Respirations even, nonlabored. Currently on room air with oxygen saturation 93%. Able to achieve 1250 mL on incentive spirometry. Weak cough. CARDIOVASCULAR: S1, S2 present. Regular rate and rhythm, sinus rhythm with first degree AVB, LBBB and frequent PVCs on telemetry. Sternum stable. Palpable peripheral pulses bilaterally. No edema present. No calf pain or tenderness noted. Heart hugger in place with patient demonstrating appropriate use. Antiembolism stockings, SCDs present. GASTROINTESTINAL: Abdomen soft, nontender, nondistended. Active bowel sounds present 4 quadrants. Tolerating diet. Positive bowel movement 04/05/23 GENITOURINARY: Liu discontinued yesterday, continues to void. Output 1375 mL in the last 24 hours INTEGUMENTARY: Skin is warm and dry with evidence of good perfusion. Anterior chest incision well approximated and covered with dry intact dressing. Bilateral lower extremity EVH sites well approximated without redness NEUROLOGIC: Cranial nerves II through XII intact MUSKULOSKELETAL: Able to move all extremities, strength equal bilaterally PSYCHIATRIC: Alert and oriented to person place and time, flat affect, intact judgment and insight INVASIVE LINES AND TUBES: A/V epicardial pacemaker wires present, grounded - Labs CBC & Chem 7: 04/06/23 06:29 04/06/23 06:29 Labs: Abnormal Lab Results - Last 24 Hours (Table) 04/05/23 04/05/23 04/05/23 Range/Units 11:13 16:10 20:29 RBC (4.30-5.90) m/uL Hgb (13.0-17.5) gm/dL Hct (39.0-53.0) % Plt Count (150-450) k/uL Chloride (98-107) mmol/L BUN (9-20) mg/dL Creatinine (0.66-1.25) mg/dL Glucose (74-99) mg/dL POC Glucose (mg/dL) 131 H 136 H 138 H (70-110) mg/dL Calcium (8.4-10.2) mg/dL Magnesium (1.6-2.3) mg/dL 04/06/23 04/06/23 Range/Units 06:29 06:29 RBC 2.27 L (4.30-5.90) m/uL Hgb 7.1 L (13.0-17.5) gm/dL Hct 21.5 L (39.0-53.0) % Plt Count 106 L (150-450) k/uL Chloride 111 H (98-107) mmol/L BUN 30 H (9-20) mg/dL Creatinine 1.43 H (0.66-1.25) mg/dL Glucose 106 H (74-99) mg/dL POC Glucose (mg/dL) (70-110) mg/dL Calcium 7.7 L (8.4-10.2) mg/dL Magnesium 2.7 H (1.6-2.3) mg/dL Assessment and Plan Plan: Coronary artery disease, and severe aortic stenosis, with anticipated bypass grafting, and aortic valve replacement, April 01. Postop day #5, status post three-vessel bypass grafting, aortic valve replacement, and left atrial appendage ligation. Routine postoperative ventilator management., All of the chest tubes have been removed and the patient is extubated and the patient is currently on room air oxygen using the incentive spirometer. Minimal atelectatic changes left lung base Frequent ectopies and PACs and evidence of a left bundle-branch block lois janell/interventricular conduction delay. History of hypertension. History of hyperlipidemia. History of hypothyroidism. Unstable angina. Plan Patient is clinically stable hemodynamically stable and the patient is currently on room air oxygen Chest x-ray from yesterday was reviewed. No chest x-ray from today Hemoglobin is stable and the renal function is also stable Patient is using the senna spirometer. Continue aspirin and Plavix for now. Continue metoprolol 25 mg by mouth every 8 hours. Continue amiodarone 400 mg by mouth twice a day The patient will be transferred out to the medical floor with telemetry monitoring, 3 S.
[2023-04-06] MEDS: IPRATROPIUM-ALBUTEROL 3 ML NEB INHALATION SCH ×4 (11:31→21:13)
[2023-04-06 11:42] LABS: Glucose,Whole Blood 143 mg/dL (70-110)
[2023-04-06 16:57] LABS: Glucose,Whole Blood 110 mg/dL (70-110)
[2023-04-06 20:49] LABS: Glucose,Whole Blood 139 mg/dL (70-110)
[2023-04-06] MEDS: SENNOSIDES-DOCUSATE SODIUM 1 EACH TAB PO SCH (20:53)
--- NOTE | 2023-04-06 22:26 | P.PN ---
Subjective This is a pleasant 63 years old male with past medical history of Hyperlipidemia, Hypertension, hypothyroidism Negative with signs symptoms of coronary artery disease, he has significant triple-vessel coronary artery disease as well as severe aortic any stenosis with mild aortic regurgitation with ejection fraction about 50% on echocardiogram. He underwent coronary artery bypass grafting and aortic valve repair on 03/28. Today he is sitting up in chair on pending from mild chest pressure but no overt chest pain or dyspnea. He still have chest tube to place this morning. Liu catheter in place with a plan to be discontinued today per surgery team He was on low-dose of neosy at 0.15. He has borderline appetite. No nausea with bowel movement. No headache weakness or numbness. He follow-up with [facility] nurse practitioner. Patient Albert looks stated, blood pressure on the low side, 91/62. On the top of the his metoprolol dose was increased today 25 twice a day to 3 times a day. At the center jeff was admitted by primary team. Chest x-ray showing persistent low lung volume with cardiomegaly with left basilar atelectasis and/or acute infiltrate. No pneumothorax with bilateral chest tubes in place. No significant change from prior chest x-ray His hemoglobin 7.5 and 7.3, creatinine 1.29 and 1.44. Platelet count 66,000 and 89,000. 04/05/2023 Patient clinically doing well, with no new complaint Liu cath understands in place he has good appetite His hemoglobin is stable at 7.3, creatinine is stable at 1.3, platelets stable and improving slowly to 97,000 Remains on aspirin and Plavix Folate is within the reference range 12.9, vitamin B12 pending 04/06/2023 Patients with no significant symptom Vitals stable and he is on room air Hemoglobin stable at 7.1 Creatinine stable at 1.4, Liu catheter discontinuance. We will check bladder scan tonight He remains on aspirin Plavix Patient continued to improve and patient will be considered for discharge soon B12 338 folate 12.9, we'll start B12 replacement therapy Objective - Vital Signs Vital signs: Vital Signs Temp 98.5 F 04/06/23 12:00 Pulse 79 04/06/23 12:00 Resp 19 04/06/23 12:00 BP 112/65 04/06/23 12:00 Pulse Ox 95 04/06/23 12:00 FiO2 21 04/05/23 09:17 Intake & Output 04/05/23 04/06/23 04/06/23 18:59 06:59 18:59 Intake Total 296 300 Output Total 475 900 450 Balance -179 -900 -150 Intake: IV 46 Pressure Bag (0.9 Sodium 6 Chloride) Sodium Chloride 0.9% 1, 40 000 ml @ 20 mls/hr IV . Q24H [facility] Rx#:[id number] Oral 250 300 Output: Urine 475 900 450 Other: Voiding Method Indwelling Catheter Indwelling Catheter Urinal # Voids 1 # Bowel Movements 1 1 ABP, PAP, CO, CI - Last Documented Arterial Blood Pressure 94/58 Pulmonary Artery Pressure 74/50 Cardiac Output 7.2 Cardiac Index 3.4 - Exam GENERAL: The patient is alert and oriented x3, not in any acute distress. Well developed, well nourished. HEENT: Pupils are round and equally reacting to light. EOMI. No scleral icterus. No conjunctival pallor. Normocephalic, atraumatic. No pharyngeal erythema. No thyromegaly. -CARDIOVASCULAR: S1 and S2 present. No murmurs, rubs, or gallops. Surgical wound is closed and healing with persistent replaced PULMONARY: Chest is clear to auscultation, no wheezing . no crackles. ABDOMEN: Soft, nontender, nondistended, normoactive bowel sounds. No palpable organomegaly. MUSCULOSKELETAL: No joint swelling or deformity. EXTREMITIES: No cyanosis, clubbing, or pedal edema. NEUROLOGICAL: Gross neurological examination did not reveal any focal deficits. SKIN: No rashes. no petechiae. - Labs CBC & Chem 7: 04/06/23 06:29 04/06/23 06:29 Labs: Abnormal Lab Results - Last 24 Hours (Table) 04/05/23 04/05/23 04/06/23 Range/Units 16:10 20:29 06:29 RBC 2.27 L (4.30-5.90) m/uL Hgb 7.1 L (13.0-17.5) gm/dL Hct 21.5 L (39.0-53.0) % Plt Count 106 L (150-450) k/uL Chloride (98-107) mmol/L BUN (9-20) mg/dL Creatinine (0.66-1.25) mg/dL Glucose (74-99) mg/dL POC Glucose (mg/dL) 136 H 138 H (70-110) mg/dL Calcium (8.4-10.2) mg/dL Magnesium (1.6-2.3) mg/dL 04/06/23 04/06/23 Range/Units 06:29 11:40 RBC (4.30-5.90) m/uL Hgb (13.0-17.5) gm/dL Hct (39.0-53.0) % Plt Count (150-450) k/uL Chloride 111 H (98-107) mmol/L BUN 30 H (9-20) mg/dL Creatinine 1.43 H (0.66-1.25) mg/dL Glucose 106 H (74-99) mg/dL POC Glucose (mg/dL) 143 H (70-110) mg/dL Calcium 7.7 L (8.4-10.2) mg/dL Magnesium 2.7 H (1.6-2.3) mg/dL Assessment and Plan Assessment: Triple-vessel coronary artery disease status post bypass graft surgery and aortic valve repair on 03/28 Mild ischemic cardiomyopathy with ejection fraction 45-50% Postop anemia, by cytopenia with anemia and thrombocytopenia. Borderline low blood pressure, asymptomatic Mild acute kidney injury Hypertension Hyperlipidemia Hypothyroidism Plan: Patient currently is on aspirin and Plavix for surgery team, risks and benefits are explained for the patient and he verbalized understanding and acceptance, however he wants to discuss this treatment with surgery team. Is also on metoprolol and amiodarone Midodrine admitted by primary team, we'll monitor blood pressure and creatinine Patient is on Liu catheter. For past sulfate twice a day Start vitamin B12 replacement of 500 mg daily we recommend to check vitamin B12 level in 2-3 months Labs and medication were reviewed.. Continue same treatment. Continue with symptomatic treatment. Resume home medication. Monitor labs and vitals. DVT and GI prophylaxis. Further recommendations as per clinical course of the patient DVT prophylaxis: Deferred to surgery primary team GI Prophylaxis: Ppi Thank you for consulting us, we'll follow up with
[2023-04-07] MEDS: METOPROLOL TARTRATE 25 MG TAB PO SCH (00:20)
[2023-04-07] MEDS: INSULIN ASPART (NovoLOG) 100 UNIT/ML VIAL SQ SCH ×2 (06:38→11:50)
[2023-04-07 06:39] LABS: Glucose,Whole Blood 113 mg/dL (70-110)
[2023-04-07] MEDS: FERROUS SULFATE 325 MG TAB PO SCH (06:39)
[2023-04-07] MEDS: MIDODRINE 5 MG TAB PO SCH (06:39)
[2023-04-07] MEDS: LEVOTHYROXINE 75 MCG TAB PO SCH (06:39)
[2023-04-07] MEDS: PANTOPRAZOLE 40 MG TABLET PO SCH (06:39)
[2023-04-07] MEDS: ASCORBIC ACID 500 MG TAB PO SCH (06:39)
--- NOTE | 2023-04-07 07:59 | P.PN ---
Subjective Progress Note Date: 04/07/23 Principal diagnosis: Severe bicuspid aortic valve stenosis with fusion of the right and noncoronary cusps of the aortic valve, coronary artery disease, unstable angina, reduced lef t ventricular systolic function. History of severe aortic stenosis, hypertension, hyperlipidemia, hypothyroid, previous tobacco dependence, recent cessation of marijuana use, covid in 2020 (remains unvaccinated), obesity, and family history of premature CAD POD #6 triple vessel coronary artery bypass grafting using the totally skeletonized in situ left internal mammary artery to the diagonal artery in a [id number] fashion then to the left anterior descending artery in an end-to-side fashion, reverse saphenous vein graft from the aorta to the ramus intermedius artery, aortic valve replacement using a 23 mm Inspiris pericardial bioprosthesis, exclusion of the left atrial appendage using a 35 mm AtriCure clip, bilateral greater saphenous vein endoscopic harvesting, intraoperative transesophageal echocardiogram and epi-aortic ultrasound, graft flow measurements using the [employer] system Postoperative acute blood loss anemia and thrombocytopenia, expected given hemodilution and cardiopulmonary bypass bump along with preoperative thrombocytopenia Acute kidney injury, likely from hypoperfusion The patient was seen and examined this morning sitting up in a recliner on the stepdown unit in no acute distress. He denies chest pain, complains of posterior left shoulder pain which is controlled on current medication regimen, denies shortness of breath. Currently in sinus rhythm with first degree AVB, left bundle branch block. Chest x-ray reviewed, labs pending. Currently on aleyda m air, able to achieve 6669-3724 mL on his incentive spirometry. Urine output stable, positive bowel movement. Has been ambulatory in the hallway without difficulty, has showered. Anticipate discharge to home today. No other new concerns. Objective - Vital Signs Vital signs: Vital Signs Temp 98.2 F 04/07/23 04:00 Pulse 75 04/07/23 04:00 Resp 20 04/07/23 04:00 BP 122/61 04/07/23 04:00 Pulse Ox 95 04/07/23 04:00 FiO2 21 04/05/23 09:17 Intake & Output 04/06/23 04/07/23 04/07/23 18:59 06:59 18:59 Intake Total 700 Output Total 750 338 Balance -50 -338 Intake: Oral 700 Output: Urine 750 220 Post Void Residual 118 Other: Voiding Method Urinal Urinal # Voids 2 # Bowel Movements 1 ABP, PAP, CO, CI - Last Documented Arterial Blood Pressure 94/58 Pulmonary Artery Pressure 74/50 Cardiac Output 7.2 Cardiac Index 3.4 - Exam CONSTITUTIONAL: Appears comfortable, cooperative, no acute distress RESPIRATORY: Lungs sounds diminished bilaterally. Respirations even, n onlabored. Currently on room air with oxygen saturation 95%. Able to achieve 1574-3278 mL on incentive spirometry. Weak cough. CARDIOVASCULAR: S1, S2 present. Regular rate and rhythm, sinus rhythm with first degree AVB, LBBB on telemetry. Sternum stable. Palpable peripheral pulses bilaterally. No edema present. No calf pain or tenderness noted. Heart hugger in place with patient demonstrating appropriate use. Antiembolism stockings, SCDs present. GASTROINTESTINAL: Abdomen soft, nontender, nondistended. Active bowel sounds present 4 quadrants. Tolerating diet. Positive bowel movement 04/06/23 GENITOURINARY: Continues to void INTEGUMENTARY: Skin is warm and dry with evidence of good perfusion. Anterior chest incision well approximated. Bilateral lower extremity EVH sites well approximated without redness NEUROLOGIC: Cranial nerves II through XII intact MUSKULOSKELETAL: Able to move all extremities, strength equal bilaterally PSYCHIATRIC: Alert and oriented to person place and time, flat affect, intact judgment and insight - Allied health notes Allied health notes reviewed: nursing - Labs CBC & Chem 7: 04/06/23 06:29 04/06/23 06:29 Labs: Abnormal Lab Results - Last 24 Hours (Table) 04/06/23 04/06/23 04/07/23 Range/Units 11:40 20:47 06:38 POC Glucose (mg/dL) 143 H 139 H 113 H (70-110) mg/dL - Imaging and Cardiology Chest x-ray: image reviewed Assessment and Plan Assessment: Severe bicuspid aortic valve stenosis with fusion of the right and noncoronary cusps of the aortic valve, status post bioprosthetic aortic valve replacement Coronary artery disease, unstable angina, status post three-vessel CABG Reduced left ventricular systolic function, EF 45-50% Hypertension Hyperlipidemia, treated, chol 148, LDL 84.5 Hypothyroid, TSH 2.39 Previous tobacco dependence, FEV 1 69% Recent cessation of marijuana use Covid in 2020 (remains unvaccinated) Obesity Family history of premature CAD Postoperative acute blood loss anemia and thrombocytopenia, expected given hemodilution and cardiopulmonary bypass bump along with preoperative th rombocytopenia Acute kidney injury Plan: Continue to maximize medical therapy with low dose ASA, statin, Plavix, beta nilson. Will increase beta nilson therapy as tolerated, increased to 50 mg BID today Continue midodrine for blood pressure support, will wean off outpatient. SIMI/ARB contraindicated at this time due to hypotension, likely will restart outpatient when able to tolerate Continue amiodarone for afib prophylaxis Encourage use of incentive spirometry 10 times every hour while awake. Bronchodilators per pulmonology Will monitor daily labs and x-rays. Electrolyte replacement per protocol Increase activity, ambulate as tolerated. PT/OT/cardiac rehab consulted GI/DVT prophylaxis Pain control per current medication regimen Insulin management per internal medicine. Patient is not diabetic, preoperative hemoglobin A1c 6% Strict accurate intake and output Daily weights Patient to shower daily DC planning in progress, anticipate DC to home with home care today More recommendations to follow
--- NOTE | 2023-04-07 08:12 | XR ---
EXAMINATION TYPE: XR chest 2V DATE OF EXAM: 04/07/2023 COMPARISON: 04/06/2023 HISTORY: 63 year-old male post cardiac surgery TECHNIQUE: PA and lateral views FINDINGS: Low lung volumes. Crowding of vascular markings. Mild prominence to the pulmonary vasculature and int erstitium. Possible trace left pleural effusion with patchy left basilar opacity persists. Median rosario rnotomy wires and prosthetic aortic valve in post-CABG clips. Heart borderline enlarged. IMPRESSION: Similar hypoventilatory changes with mild pulmonary vascular congestion. Trace left effusion with adj acent left basilar atelectasis is similar.
[2023-04-07] MEDS: ATORVASTATIN 40 MG TAB PO SCH (08:24)
[2023-04-07] MEDS: AMIODARONE 200 MG TAB PO SCH (08:24)
[2023-04-07] MEDS: ASPIRIN 81 MG PO SCH (08:24)
[2023-04-07] MEDS: CLOPIDOGREL 75 MG TAB PO SCH (08:25)
[2023-04-07 08:37] LABS: HCT 23.4 % (39.0-53.0); HGB 7.4 gm/dL (13.0-17.5); Hypochromasia Slight; MCH 29.9 pg (25.0-35.0); MCHC 31.9 g/dL (31.0-37.0); MCV 93.7 fL (80.0-100.0); Mean Platelet Volume 8.8; Platelet Count 144 k/uL (150-450); RBC 2.49 m/uL (4.30-5.90); WBC 6.8 k/uL (3.8-10.6)
[2023-04-07] MEDS ORDERED: CYANOCOBALAMIN 500 MCG TAB PO SCH (09:00)
[2023-04-07] MEDS ORDERED: METOPROLOL TARTRATE 50 MG TAB PO SCH (09:00)
[2023-04-07] MEDS: IPRATROPIUM-ALBUTEROL 3 ML NEB INHALATION SCH ×2 (09:19→11:44)
[2023-04-07 09:50] VITALS: TEMP 98
--- NOTE | 2023-04-07 10:17 | P.PN ---
Subjective Progress Note Date: 04/07/23 This is a pleasant 62-year-old male that we are currently evaluating, in room 361, for possible bypass grafting, and aortic valve replacement, to be done on April 01. We were consulted for preoperative evaluation. The patient was admitted to the hospital on March 28. The cardiac catheterization done on the same day revealed significant coronary disease, as well as significant aortic stenosis. The patient was seen by cardiothoracic surgery, and surgeries plan for tomorrow. Currently, the patient's on room air. Is not receiving any IV fluids. He has no history of any lung disease, but did smoke when he was very young for a year or 2. He denies any shortness of breath, cough, wheezing, chest tightness, or phlegm production. His medical history includes unstable angina, hypothyroidism, hypertension, and hyperlipidemia. The patient's home medications included aspirin, Synthroid, losartan/hydrochlorothiazide, metoprolol, sublingual nitroglycerin, and Crestor. Current laboratory data includes a white count of 5.6, hemoglobin 14.9, hematocrit 45.1, and a platelet count of 149,000. Sodium, potassium, chloride, CO2, anion gap, BUN and creatinine, all normal. So was the rest of the comprehensive metabolic profile. Chest x-ray to my eye, was normal. Progress note dated 04/02/2023. 62-year-old male, postop day #1, status post three-vessel bypass grafting, aortic valve replacement, and left atrial appendage ligation. The patient had surgery yesterday. The patient is currently resting comfortably in the intensive care unit, room 267. Other than for pain at the surgical site, he appears to be doing relatively well. The patient's currently on 4 L of oxygen. He is getting saline at 50 mL an hour, norepinephrine at 2 mcg/m, and insulin drip at 1 unit an hour. White count 5, hemoglobin 8.1, hematocrit 24.1, and platelet count 75,000. Sodium 139, potassium 4.3, chlorides 108, CO2 25, BUN 18, and creatinine 1.17. Albumin is 3.3. Magnesium 2.5. Chest x-ray shows interval extubation, low lung volumes, cardiomegaly, and some bibasilar atelectasis. Progress note dated 04/03/2023. 62-year-old male postop day #2, status post three-vessel bypass grafting, aortic valve replacement, and left atrial appendage ligation. The patient's doing relatively well. He is currently on 3 L of oxygen. He is getting saline at 40 mL an hour. His norepinephrine dose is 1 mcg/m. Chest tubes came out today. He continues to work on incentive spirometer. White count 8.3, hemoglobin 7.5, hematocrit 22.6, and platelet count 66,000. Sodium 136, potassium 4.2, chlorides 105, CO2 25, BUN 19, creatinine 1.29. Chest x-rays essentially unchanged, with some atelectatic changes at the bases. Progress note dated the 2022. 63-year-old male seen today in room 267. He's postop day #3, status post three- vessel bypass grafting, aortic valve replacement, and left atrial appendage ligation. Patient is doing about the same. The patient remains on oxygen at 3 L. He is doing a bit better on his incentive spirometer, getting about 750 mL. He is on saline at 20 mL an hour. He is also on Michael-Synephrine 0.15 mcg/kg/m. He continues to be followed by cardiothoracic surgery. Today's labs include a white count 9.5, hemoglobin 7.3, hematocrit 21.9, and a platelet count of 89,00 0. Sodium 136, potassium 4.1, chlorides 106, CO2 22, normal anion gap, E1 25, and creatinine 1.44. Glucose is 114. Chest x-ray shows persistent low lung volumes, cardiomegaly, and bibasilar left greater than right atelectasis. On 04/05/2023, the patient is postop day #4. The patient underwent aortic valve replacement and three-vessel bypass surgery. He is able to sit up on a recliner. Surgical 1 site is dry clean and intact. Chest x-ray shows some atelectatic change in the left lung base. The the lungs are well expanded and there is no evidence of any pneumothorax or pneumonias. The cardiac rhythm is sinus with a first-degree AV block and a left bundle branch block pattern. The patient remains on beta blockers with metoprolol 25 mg 3 times a day and the patient is also on amiodarone. The patient is on no pressors for now. He is using the incentive spirometer and is pulling approximately thousand. Chest tubes are all removed. On his cardiac rhythm, the patient is having frequent PVCs and the patient remains on accommodation of metoprolol and amiodarone. No dizziness. No chest pain. On 04/06/2023, the patient is postop day #5. The patient continues to have significant number of activities and cardiology is aware. He seems to be in a sinus mechanism and is having frequent PACs and he does have an underlying interventricular conduction delay. He remains on amiodarone 400 mg by mouth twice a day and is also on metoprolol 25 mg every 8 hours. He is on accom modation of aspirin and Plavix. He is hemodynamically stable without any complaints. His BUN is at 30 with a creatinine of 1.4 and a sodium level is 140 with a white cell count of 6.3 and a hemoglobin of 7.1 and a platelet count of 106. He is using the senna spirometer. Is falling approximately 1000. Is currently on room air oxygen. His last chest x-ray was from yesterday and it showed no significant abnormalities other than some left basilar atelectatic changes. Otherwise, patient is tolerating his diet. No nausea. No emesis. Pain is under adequate control and the patient is ambulating. As far the chest tubes, there are all removed. On today's evaluation of 2022, the patient is outside the intensive care unit under telemetry unit. He is ambulating. He is on room air oxygen. He is not having any significant respiratory distress. Current rhythm is sinus with a first-degree AV block and a left bundle branch block pattern. He is using the incentive spirometer. Is pulling approximately 1500. Is having regular bowel movements. No major respiratory distress for now. The patient is postop day #6. The blood work from today shows a white cell count of 6.8 with a hemoglobin of 7.4 and a BUN of 25 and a creatinine of 1.28. Objective - Vital Signs Vital signs: Vital Signs Temp 98 F 04/07/23 08:20 Pulse 78 04/07/23 09:26 Resp 18 04/07/23 08:20 BP 127/65 04/07/23 08:20 Pulse Ox 97 04/07/23 08:20 FiO2 21 04/05/23 09:17 Intake & Output 04/06/23 04/07/23 04/07/23 18:59 06:59 18:59 Intake Total 700 Output Total 750 338 Balance -50 -338 Intake: Oral 700 Output: Urine 750 220 Post Void Residual 118 Other: Voiding Method Urinal Urinal Urinal # Voids 2 # Bowel Movements 1 ABP, PAP, CO, CI - Last Documented Arterial Blood Pressure 94/58 Pulmonary Artery Pressure 74/50 Cardiac Output 7.2 Cardiac Index 3.4 - Exam CONSTITUTIONAL: Appears comfortable, cooperative, no acute distress RESPIRATORY: Lungs sounds diminished bilaterally. Respirations even, nonlabored. Currently on room air with oxygen saturation 95%. Able to achieve 3749-6779 mL on incentive spirometry. Weak cough. CARDIOVASCULAR: S1, S2 present. Regular rate and rhythm, sinus rhythm with first degree AVB, LBBB on telemetry. Sternum stable. Palpable peripheral pulses bilaterally. No edema present. No calf pain or tenderness noted. Heart hugger in place with patient demonstrating appropriate use. Antiembolism stockings, SCDs present. GASTROINTESTINAL: Abdomen soft, nontender, nondistended. Active bowel sounds present 4 quadrants. Tolerating diet. Positive bowel movement 04/06/23 GENITOURINARY: Continues to void INTEGUMENTARY: Skin is warm and dry with evidence of good perfusion. Anterior chest incision well approximated. Bilateral lower extremity EVH sites well approximated without redness NEUROLOGIC: Cranial nerves II through XII intact MUSKULOSKELETAL: Able to move all extremities, strength equal bilaterally PSYCHIATRIC: Alert and oriented to person place and time, flat affect, intact judgment and insight - Labs CBC & Chem 7: 04/07/23 07:41 04/07/23 07:41 Labs: Abnormal Lab Results - Last 24 Hours (Table) 04/06/23 04/06/23 04/07/23 Range/Units 11:40 20:47 06:38 RBC (4.30-5.90) m/uL Hgb (13.0-17.5) gm/dL Hct (39.0-53.0) % Plt Count (150-450) k/uL Chloride (98-107) mmol/L BUN (9-20) mg/dL Creatinine (0.66-1.25) mg/dL POC Glucose (mg/dL) 143 H 139 H 113 H (70-110) mg/dL Calcium (8.4-10.2) mg/dL 04/07/23 04/07/23 Range/Units 07:41 07:41 RBC 2.49 L (4.30-5.90) m/uL Hgb 7.4 L (13.0-17.5) gm/dL Hct 23.4 L (39.0-53.0) % Plt Count 144 L (150-450) k/uL Chloride 111 H (98-107) mmol/L BUN 25 H (9-20) mg/dL Creatinine 1.28 H (0.66-1.25) mg/dL POC Glucose (mg/dL) (70-110) mg/dL Calcium 8.0 L (8.4-10.2) mg/dL Assessment and Plan Plan: Coronary artery disease, and severe aortic stenosis, with anticipated bypass grafting, and aortic valve replacement, April 01. Postop day #6, status post three-vessel bypass grafting, aortic valve replacement, and left atrial appendage ligation. Routine postoperative ventilator management., All of the chest tubes have been removed and the patient is extubated and the patient is currently on room air oxygen using the incentive spirometer. Minimal atelectatic changes left lung base Frequent ectopies and PACs and evidence of a left bundle-branch block pattern/interventricular conduction delay. History of hypertension. History of hyperlipidemia. History of hypothyroidism. Plan Patient is clinically stable Patient is clinically stable hemodynamically stable and the patient is currently on room air oxygen Chest x-ray from yesterday was reviewed. Hemoglobin is stable and the renal function is also stable Patient is using the senna spirometer. Continue aspirin and Plavix for now. Continue metoprolol 25 mg by mouth every 8 hours. Continue amiodarone 400 mg by mouth twice a day The patient was transferred out of the intensive care unit yesterday and the patient will likely be discharged home today.
[2023-04-07 10:48] VITALS: BP 114/64; RESP 17
--- NOTE | 2023-04-07 11:15 | P.DS ---
Providers Date of admission: 03/28/23 09:37 Expected date of discharge: 04/07/23 Attending physician: Raman Duenas Consults: 03/28/23 12:33 Consult Physician Routine Consulting Provider: Raman Duenas Consult Reason/Comments: CABG eval Do you want consulting provider notified?: Already Contacted 03/28/23 16:10 Consult Physician Routine Consulting Provider: Sandra Weller Consult Reason/Comments: Dental clearance Do you want consulting provider notified?: Already Contacted 03/31/23 06:41 Consult Physician Routine Consulting Provider: Francisco Gaines Consult Reason/Comments: preop cabg/avr Do you want consulting provider notified?: Already Contacted 03/31/23 10:38 Consult to Anesthesia Routine Consulting Provider: Anesthesia,Services Consult Reason/Comments: Cardiac Surgery Pre-Op 04/01/23 14:04 Consult Physician Routine Consulting Provider: Yordan Balderas Consult Reason/Comments: Continuous Process Rotary Drum Tanner Consult: post cardiac surgery Do you want consulting provider notified?: Already Contacted Consult Physician Routine Consulting Provider: Lisa Wall Consult Reason/Comments: post cardiac surgery; Miriam Chavez CLERK GUIDE patient Do you want consulting provider notified?: Yes Primary care physician: Stated None Hospital Course: FINAL DIAGNOSIS: 1. Severe bicuspid aortic valve stenosis with fusion of the right and non- coronary cusps of the aortic valve 2. Coronary artery disease, unstable angina 3. Reduced left ventricular systolic function, EF 45-50% 4. Hypertension 5. Hyperlipidemia, treated, cholesterol 148, LDL 84.5 6. Hypothyroid, TSH 2.39 7. Previous tobacco dependence, FEV1 69% of protected 8. Recent cessation of marijuana use 9. Covid in 2020, remains unvaccinated 10. Obesity 11. Family history of premature CAD 12. Postoperative acute blood loss anemia and thrombocytopenia 13. Acute kidney injury PRINCIPAL PROCEDURE: 1. Triple-vessel coronary artery bypass grafting using the totally skeletonized in situ left internal mammary artery to the diagonal artery in a [id number] fashion then to the left anterior descending artery in an end-to-side fashion, reverse saphenous vein graft from the aorta to the ramus intermedius artery 2. Aortic valve replacement using a 23 mm Inspiris pericardial bioprosthesis 3. Exclusion of the left atrial appendage using a 35 mm after care clip 4. Bilateral greater saphenous vein endoscopic harvesting 5. Intraoperative transesophageal echocardiogram and epi-aortic ultrasound 6. Graft flow measurements using the Medistim system HISTORY OF PRESENT ILLNESS: This is a 63-year-old gentleman who follows outpatient with nurse practitioner Nova Chavez for primary care and Dr. Maciel for cardiology. He presented to his PCP office for evaluation rega rding chest pressure, fatigue, worsening exertional dyspnea, and diaphoresis which began at the end of December. A 12-lead EKG was completed demonstrating ST depression in the lateral leads. The patient was recommended to follow-up with cardiology, was seen by Dr. Maciel who completed a transthoracic echocardiogram and further recommended heart catheterization. He was scheduled for elective heart catheterization which demonstrated proximal LAD stenosis 80%, mid LAD stenosis 95%, 30% stenosis to the ramus and 40% stenosis to the right coronary artery. Echocardiogram revealed reduced left ventricular systolic function with EF 45-50%, severe aortic stenosis with peak/mean gradient 65/41 mmHg, aortic valve area 1.1 cm, and peak velocity 4 m/s with mild to moderate aortic regurgitation. Due to these findings consultation was placed to cardiothoracic surgery. He was seen by Dr. Sage and was recommended to undergo coronary artery bypass surgery along with aortic valve replacement. The usual perioperative course was discussed in detail with the patient, all risks and benefits were explained, all questions were answered, and consent was obtained to proceed with surgery. The patient was kept inpatient, dental clearance was obtained, and surgery was scheduled. HOSPITAL COURSE: The patient was brought to the preoperative area 04/01/2023, prepared in the usual fashion, and subsequently taken to the operating room where Dr. Duenas performed three-vessel CABG and aortic valve replacement. Upon completion of surgery the patient was transferred to the cardiovascular intensive care unit where he was recovered and monitored hemodynamically. He was extubated, all lines, tubes, and drips were discontinued when appropriate, and he was transferred to 3 S cardiac stepdown unit for further monitoring and rehabilitation. His oxygen was titrated down, he continued to work with physical and occupational therapy, he was tolerating oral diet, his pain was controlled, and he was ready to be discharged to home with [facility] care on postoperative day #6. He received written and verbal instruction regarding his medications, activity restrictions, signs and symptoms requiring physician notification, and follow-up appointments. The patient was not discharged on SIMI/ARB due to borderline hypotension during hospitalization, will likely be restarted outpatient for afterload reduction Patient Condition at Discharge: Stable Plan - Discharge Summary Discharge Rx Participant: No New Discharge Prescriptions: New Melatonin 6 mg PO HS PRN tab PRN Reason: Sleep Pantoprazole [Protonix] 40 mg PO AC-BRKFST #30 tab Sennosides-Docusate Sodium [Senokot-S] 2 each PO HS PRN tab PRN Reason: Constipation Ascorbic Acid [Vitamin C] 500 mg PO BID-W/MEALS #30 tab Amiodarone [Cordarone] 200 mg PO BID #21 tab Ferrous Sulfate [Iron (65 MG Elemental)] 325 mg PO BID-W/MEALS #30 tab Clopidogrel [Plavix] 75 mg PO DAILY #30 tab Acetaminophen Tab [Tylenol] 650 mg PO Q4HR PRN tab PRN Reason: Fever And/ Or Pain Continue Levothyroxine Sodium [Synthroid] 75 mcg PO DAILY Aspirin 81 mg PO DAILY Rosuvastatin [Crestor] 20 mg PO DAILY Changed Metoprolol Tartrate 50 mg PO BID #60 tab Discontinued Nitroglycerin Sl Tabs [Nitrostat] 0.4 mg SUBLINGUAL Q5M PRN PRN Reason: Chest Pain Losartan/Hydrochlorothiazide [Losartan-Hctz 100-12.5 mg Tab] 1 tab PO DAILY Discharge Medication List Aspirin 81 mg PO DAILY 03/28/23 [History] Levothyroxine Sodium [Synthroid] 75 mcg PO DAILY 03/28/23 [History] Rosuvastatin [Crestor] 20 mg PO DAILY 03/28/23 [History] Acetaminophen Tab [Tylenol] 650 mg PO Q4HR PRN tab 04/07/23 [Rx] Amiodarone [Cordarone] 200 mg PO BID #21 tab 04/07/23 [Rx] Ascorbic Acid [Vitamin C] 500 mg PO BID-W/MEALS #30 tab 04/07/23 [Rx] Clopidogrel [Plavix] 75 mg PO DAILY #30 tab 04/07/23 [Rx] Ferrous Sulfate [Iron (65 MG Elemental)] 325 mg PO BID-W/MEALS #30 tab 04/07/23 [Rx] Melatonin 6 mg PO HS PRN tab 04/07/23 [Rx] Metoprolol Tartrate 50 mg PO BID #60 tab 04/07/23 [Rx] Pantoprazole [Protonix] 40 mg PO AC-BRKFST #30 tab 04/07/23 [Rx] Sennosides-Docusate Sodium [Senokot-S] 2 each PO HS PRN tab 04/07/23 [Rx] Follow up Appointment(s)/Referral(s): Miriam ChavezC [Other] - 04/21/23 2:00 pm Elaine Gutierrez NPC [Nurse Practitioner] - 04/14/23 11:30 am (You will be seen in the surgeon's office behind the hospital in [facility], [address] Office phone number is . If unable to make appointment or you wish to change appointment please call the office) Rehab [facility] ,Cardiac [NON-STAFF] - 4 Weeks (You will receive a phone call in approximately 4-6 weeks for evaluation for cardiac rehab) Raman Duenas MD [STAFF PHYSICIAN] - 04/29/23 10:00 am Alex Maciel DO [STAFF PHYSICIAN] - 04/21/23 9:30 am Francisco Gaines DO [Doctor of Osteopathic Medicine] - 05/04/23 10:00 am [facility], [NON-STAFF] - 1-2 Days (To be seen day after discharge then 2- 3 times per week for 4 weeks) Ambulatory/Diagnostic Orders: Complete Blood Count w/diff [LAB.AMB] Time Frame: 3 Days, Location: None Selected Comprehensive Metabolic Panel [LAB.AMB] Time Frame: 3 Days, Location: None Selected Activity/Diet/Wound Care/Special Instructions: DISCHARGE INSTRUCTIONS: 1. No driving for 4 weeks, or until physician gives their ok. 2. The patient should sleep in their own bed, no medical bed needed. 3. Stairs are not an issue. If the bedroom is upstairs, it is advised that the patient go up at night and down in the morning for the first week. Go slowly, using handrail and take 1 step at a time. 4. ALMA DELIA hose are to be worn for 30 days post surgery or until physician discontinues. 5. Heart hugger is to be worn 100% of the time until physician discontinues.(except when showering) 6. No lifting, pushing, or pulling more than 10 pounds for 12 weeks. The physician will advise of any restriction changes. 7. The patient is expected to continue the prescribed walking program. 8. Continue pain control per as needed orders. 9. Continue with incentive spirometry and splinting/heart hugger until otherwise directed by the physician. 10. Must shower daily using liquid antibacterial soap 11. Routine sternal incision care. No powders, lotions, ointments on incisions. No dressings are necessary on incisions unless they are draining. Dermabond tape is to remain on sternal incision until surgeon follow-up. 12. Please call surgeon/CLERK GUIDE for temp greater than 101 F or purulent drainage from incisions. 13. You should weigh yourself daily, record and bring log with you to follow up appointments. 14. All prescriptions given by surgeon for 30 days. Refills need to be filled through lawnmower repair mechanic/primary care physician. 15. A Red armband has been placed on the patient. It should be worn for 30 days post discharge from surgery and will be removed by the cardiac surgeons. If an ER visit is necessary, please make sure the number on the Red armband is called before going to ER. 16. You have been referred to and are expected to begin Cardiac Rehab in [facility] oximately 4-6 weeks. HOME HEALTH SERVICES TO PROVIDE: RN SKILLED HOME CARE SERVICES FOR POST-OP SURGICAL PATIENTS WITH THE FOLLOWING: Coronary Artery Bypass Surgery (CABG), Mitral Valve Replacement/Repair ( MVR), Aortic Valve Replacement/Repair (AVR) RN TO CONTINUE EDUCATION FROM ``ROAD TO A HEALTH HEART PATIENT EDUCATION MANUAL (GIVEN TO PATIENT IN THE HOSPITAL) MEDICATION RECONCILIATION WITH EDUCATION NEEDED ON FIRST HOME VISIT EMPHASIZE IMPORTANCE OF WEARING BREAST SUPPORT/HEART HUGGER ENCOURAGE USE OF INCENTIVE SPIROMETER 10 X EVERY HOUR WHILE AWAKE ENCOURAGE UTILIZATION OF LOWER EXTREMITY COMPRESSION STOCKINGS/ALMA DELIA HOSE and ELEVATE LEGS ABOVE LEVEL OF HEART WHILE AT REST. ENCOURAGE AMBULATION 3-5x/day INCREASING TOLERATES, WHILE AVOIDING EXTR EMES IN TEMPERATURE FREQUENCY: RN TO OPEN THE PATIENT WITHIN 24 HOURS OF DISCHARGE FROM THE HOSPITAL WITH TELEHEALTH INSTALLED AT [facility] [place] TO VISIT 2-3 X A WEEK FOR 4 WEEKS ESTABLISHED BY PATIENT NEEDS. LABORATORY: CBC, CMP TO BE DRAWN ON THE THIRD DAY HOME, (RAN STAT) FAX RESULTS TO [phone]. TELEHEALTH PARAMETERS: WEIGHT: NOTIFY MD OF WEIGHT GAIN OF 2 LBS IN 24 HOURS OR 5 LBS IN ONE WEEK HR: NOTIFY MD OF HR <55 BPM OR HR>100 BPM BP: NOTIFY MD IF BP <90/55 OR BP>140/100 O2 SAT: NOTIFY MD IF PO2<93% ON ROOM AIR SEND TELEHEALTH REPORT TO DISC PAD PLATE FILLER AND CARDIOVASCULAR SURGEON THE FIRST WEEK OF CARE AND THEN BI-WEEKLY. PLEASE ADDITIONALLY COMMUNICATE ANY ABNORMALS AND NEW FINDINGS TO THE SURGEONS OFFICE. check vitamin B12 level in 2-3 months Discharge Disposition: HOME WITH HOME HEALTH SERVICES
[2023-04-07 11:51] LABS: Glucose,Whole Blood 96 mg/dL (70-110)
[2023-04-07 11:54] VITALS: PULSE 78
--- NOTE | 2023-04-07 12:31 | P.PN ---
Subjective This is a pleasant 63 years old male with past medical history of Hyperlipidemia, Hypertension, hypothyroidism Negative with signs symptoms of coronary artery disease, he has significant triple-vessel coronary artery disease as well as severe aortic any stenosis with mild aortic regurgitation with ejection fraction about 50% on echocardiogram. He underwent coronary artery bypass grafting and aortic valve repair on 03/28. Today he is sitting up in chair on pending from mild chest pressure but no overt chest pain or dyspnea. He still have chest tube to place this morning. Liu catheter in place with a plan to be discontinued today per surgery team He was on low-dose of neosy at 0.15. He has borderline appetite. No nausea with bowel movement. No headache weakness or numbness. He follow-up with [facility] nurse practitioner. Patient Albert looks stated, blood pressure on the low side, 91/62. On the top of the his metoprolol dose was increased today 25 twice a day to 3 times a day. At the center jeff was admitted by primary team. Chest x-ray showing persistent low lung volume with cardiomegaly with left basilar atelectasis and/or acute infiltrate. No pneumothorax with bilateral chest tubes in place. No significant change from prior chest x-ray His hemoglobin 7.5 and 7.3, creatinine 1.29 and 1.44. Platelet count 66,000 and 89,000. 04/05/2023 Patient clinically doing well, with no new complaint Liu cath understands in place he has good appetite His hemoglobin is stable at 7.3, creatinine is stable at 1.3, platelets stable and improving slowly to 97,000 Remains on aspirin and Plavix Folate is within the reference range 12.9, vitamin B12 pending 04/06/2023 Patients with no significant symptom Vitals stable and he is on room air Hemoglobin stable at 7.1 Creatinine stable at 1.4, Liu catheter discontinuance. We will check bladder scan tonight He remains on aspirin Plavix Patient continued to improve and patient will be considered for discharge soon B12 338 folate 12.9, we'll start B12 replacement therapy 04/07/2023 patient clinically doing well, he denies any symptoms He is hemodynamically stable Patient is better at 7.4, creatinine but at 1.2 Remains on aspirin and Plavix and other medication for consultants patient was started on vitamin B12 yesterday, we recommended to continue medication as an outpatient and check level again 1-2 months Objective - Vital Signs Vital signs: Vital Signs Temp 98 F 04/07/23 08:20 Pulse 78 04/07/23 11:53 Resp 17 04/07/23 10:46 BP 114/64 04/07/23 10:46 Pulse Ox 97 04/07/23 10:46 FiO2 21 04/05/23 09:17 Intake & Output 04/06/23 04/07/23 04/07/23 18:59 06:59 18:59 Intake Total 700 Output Total 750 338 Balance -50 -338 Intake: Oral 700 Output: Urine 750 220 Post Void Residual 118 Other: Voiding Method Urinal Urinal Urinal # Voids 2 # Bowel Movements 1 ABP, PAP, CO, CI - Last Documented Arterial Blood Pressure 94/58 Pulmonary Artery Pressure 74/50 Cardiac Output 7.2 Cardiac Index 3.4 - Exam GENERAL: The patient is alert and oriented x3, not in any acute distress. Well developed, well nourished. HEENT: Pupils are round and equally reacting to light. EOMI. No scleral icterus. No conjunctival pallor. Normocephalic, atraumatic. No pharyngeal erythema. No thyromegaly. -CARDIOVASCULAR: S1 and S2 present. No murmurs, rubs, or gallops. Surgical wound is closed and healing with persistent replaced PULMONARY: Chest is clear to auscultation, no wheezing . no crackles. ABDOMEN: Soft, nontender, nondistended, normoactive bowel sounds. No palpable organomegaly. MUSCULOSKELETAL: No joint swelling or deformity. EXTREMITIES: No cyanosis, clubbing, or pedal edema. NEUROLOGICAL: Gross neurological examination did not reveal any focal deficits. SKIN: No rashes. no petechiae. - Labs CBC & Chem 7: 04/07/23 07:41 04/07/23 07:41 Labs: Abnormal Lab Results - Last 24 Hours (Table) 04/06/23 04/07/23 04/07/23 Range/Units 20:47 06:38 07:41 RBC (4.30-5.90) m/uL Hgb (13.0-17.5) gm/dL Hct (39.0-53.0) % Plt Count (150-450) k/uL Chloride 111 H (98-107) mmol/L BUN 25 H (9-20) mg/dL Creatinine 1.28 H (0.66-1.25) mg/dL POC Glucose (mg/dL) 139 H 113 H (70-110) mg/dL Calcium 8.0 L (8.4-10.2) mg/dL 04/07/23 Range/Units 07:41 RBC 2.49 L (4.30-5.90) m/uL Hgb 7.4 L (13.0-17.5) gm/dL Hct 23.4 L (39.0-53.0) % Plt Count 144 L (150-450) k/uL Chloride (98-107) mmol/L BUN (9-20) mg/dL Creatinine (0.66-1.25) mg/dL POC Glucose (mg/dL) (70-110) mg/dL Calcium (8.4-10.2) mg/dL Assessment and Plan Assessment: Triple-vessel coronary artery disease status post bypass graft surgery and aortic valve repair on 03/28 Mild ischemic cardiomyopathy with ejection fraction 45-50% Postop anemia, by cytopenia with anemia and thrombocytopenia. Borderline low blood pressure, asymptomatic Mild acute kidney injury Hypertension Hyperlipidemia Hypothyroidism Plan: Patient currently is on aspirin and Plavix for surgery team, risks and benefits are explained for the patient and he verbalized understanding and acceptance, however he wants to discuss this treatment with surgery team. Is also on metoprolol and amiodarone Midodrine admitted by primary team, we'll monitor blood pressure and creatinine Patient is on Liu catheter. For past sulfate twice a day Start vitamin B12 replacement of 500 mg daily we recommend to check vitamin B12 level in 2-3 months Labs and medication were reviewed.. Continue same treatment. Continue with symptomatic treatment. Resume home medication. Monitor labs and vitals. DVT and GI prophylaxis. Further recommendations as per clinical course of the patient DVT prophylaxis: Deferred to surgery primary team GI Prophylaxis: Ppi Thank you for consulting us, we'll follow up with
--- NOTE | 2023-04-07 13:09 | P.PN ---
Subjective Progress Note Date: 04/07/23 HISTORY OF PRESENT ILLNESS: Patient examined this morning. Patient is sitting up in the chair. He denies chest pain or pressure. He denies shortness of breath. Vital signs are stable. Plan is for discharge home this afternoon PHYSICAL EXAM: VITAL SIGNS: Reviewed. GENERAL: Well-developed in no acute distress. NECK: Supple. No JVD or thyromegaly LUNGS: Respirations even and unlabored. Lungs essentially clear to auscultation bilaterally. HEART: Regular rate and rhythm. S1 and S2 heard. EXTREMITIES: Normal range of motion. No clubbing or cyanosis. Peripheral pulses intact. No lower extremity edema ASSESSMENT: Bicuspid aortic valve, status post bioprosthetic aortic valve replacement Coronary artery disease, status post CABG 3 vessels Hypertension Hyperlipidemia PLAN: Continue current cardiac medications Increase activity as tolerated Encourage use of incentive spirometer Patient is stable for discharge home today from a cardiac standpoint Nurse practitioner note has been reviewed by physician. Signing provider agrees with the documented findings, assessment, and plan of care. Objective - Vital Signs Vital signs: Vital Signs Temp 98 F 04/07/23 08:20 Pulse 78 04/07/23 11:53 Resp 17 04/07/23 10:46 BP 114/64 04/07/23 10:46 Pulse Ox 97 04/07/23 10:46 FiO2 21 04/05/23 09:17 Intake & Output 04/06/23 04/07/23 04/07/23 18:59 06:59 18:59 Intake Total 700 Output Total 750 338 Balance -50 -338 Intake: Oral 700 Output: Urine 750 220 Post Void Residual 118 Other: Voiding Method Urinal Urinal Urinal # Voids 2 # Bowel Movements 1 ABP, PAP, CO, CI - Last Documented Arterial Blood Pressure 94/58 Pulmonary Artery Pressure 74/50 Cardiac Output 7.2 Cardiac Index 3.4 - Labs CBC & Chem 7: 04/07/23 07:41 04/07/23 07:41 Labs: Abnormal Lab Results - Last 24 Hours (Table) 04/06/23 04/07/23 04/07/23 Range/Units 20:47 06:38 07:41 RBC (4.30-5.90) m/uL Hgb (13.0-17.5) gm/dL Hct (39.0-53.0) % Plt Count (150-450) k/uL Chloride 111 H (98-107) mmol/L BUN 25 H (9-20) mg/dL Creatinine 1.28 H (0.66-1.25) mg/dL POC Glucose (mg/dL) 139 H 113 H (70-110) mg/dL Calcium 8.0 L (8.4-10.2) mg/dL 04/07/23 Range/Units 07:41 RBC 2.49 L (4.30-5.90) m/uL Hgb 7.4 L (13.0-17.5) gm/dL Hct 23.4 L (39.0-53.0) % Plt Count 144 L (150-450) k/uL Chloride (98-107) mmol/L BUN (9-20) mg/dL Creatinine (0.66-1.25) mg/dL POC Glucose (mg/dL) (70-110) mg/dL Calcium (8.4-10.2) mg/dL
--- NOTE | 2023-04-11 18:25 | CDI ---
Documentation Clarification Form Date: 04/11/2023 06:08:30 PM From: Carolann Hannah Phone: Admit Date: 03/28/2023 09:37:00 AM Patient Name: Juan Luis Castañeda Visit Number: [id number] Discharge Date: 04/07/2023 12:50:00 PM ATTENTION: The Clinical Documentation Specialists (CDI) and [facility] Coding Staff appreciate your assistance in clarifying documentation. Please respond to the clarification below the line at the bottom and electronically sign. The CDI & [facility] Coding staff will review the response and follow-up if needed. Please note: Queries are made part of the Legal Health Record. If you have any questions, please contact the author of this message via ITS. Dr. Raman Duenas Your patient has documented HTN and reducedLV systolic function with EF of 45%. Additional information is requested. History/Risk Factors: 63yo M, bicuspid ASwithfusionof the Rt and non-coronary cusps of AV, CAD wunstable angina, reducedLV systolic fx, HTN, HLD, hypothyroid, Hx smoker, Hx Covid,unvaccinated, obesity, FHx CAD, post OPABLA & thrombocytopenia, RAZA Clinical Indicators: VS/Pulse OX: 95 03/28/23 Echocardiogram Results: ReducedLV systolic function ejection fraction 45% antral apical hypokinesis. SevereASwith ssan-xs-ubrhaeis AR. Chest x ray: Heart borderlineenlarged. Mild interstitial prominence which has a chronic appearance. Noconsolidation orpleural effusion. Treatment: Continue to maximize medicaltherapywith low dose ASA, statin, Plavix, beta nilson. Will increase beta blockertherapyas tolerated, increased to 50 mg BID today Continue midodrine for bloodpressuresupport, will wean off outpatient. SIMI/ARB contraindicated at this time due tohypotension, likely will restart outpatient when able to tolerate. Continue amiodarone forafibprophylaxis. Encourage use of incentive spirometry 10 times every hour while awake. Bronchodilators per pulmonology. Will monitor daily labs andx- rays. Electrolytereplacementper protocol. Increase activity, ambulate as tolerated.PT/OT/cardiac rehab consulted In your professional opinion, can you please clarify the significance of the HTN and reducedLV systolic function? [ ] Hypertensive heart disease without heart failure [ ] Acute Systolic Heart Failure (reduced EF) [ ] Chronic Systolic Heart Failure (reduced EF) (Template Last Revised: December 2020) None of the above.Combined chronic systolic an diastolic Heart Failure MTDD
== END 2023-04-07 12:50 | disposition home health service (06) | DRG 163 ==
LOC: CATHCVL 09:36 → 2SICU 09:37 → 3SCARD 12:19 → 2SICU 04-01 08:36 → UNDOFXSDCSVC 04-01 08:36 → 2SICU 04-01 14:07 → 3SCARD 04-06 22:42
PROVIDERS: ADMIT Surgery; ATTEND Surgery
PROC: B2111ZZ Fluoroscopy of Multiple Coronary Arteries using Low Osmolar Contrast (ICD-10-PCS; 2023-03-28)
PROC: 4A023N7 Measurement of Cardiac Sampling and Pressure, Left Heart, Percutaneous Approach (ICD-10-PCS; 2023-03-28)
PROC: 4A0305C Measurement of Arterial Flow, Coronary, Open Approach (ICD-10-PCS; 2023-04-01)
PROC: 5A1221Z Performance of Cardiac Output, Continuous (ICD-10-PCS; 2023-04-01)
PROC: 02110Z9 Bypass Coronary Artery, Two Arteries from Left Internal Mammary, Open Approach (ICD-10-PCS; 2023-04-01)
PROC: 021009W Bypass Coronary Artery, One Artery from Aorta with Autologous Venous Tissue, Open Approach (ICD-10-PCS; 2023-04-01)
PROC: 03B10ZZ Excision of Left Internal Mammary Artery, Open Approach (ICD-10-PCS; 2023-04-01)
PROC: 02L70CK Occlusion of Left Atrial Appendage with Extraluminal Device, Open Approach (ICD-10-PCS; 2023-04-01)
PROC: 30233N0 Transfusion of Autologous Red Blood Cells into Peripheral Vein, Percutaneous Approach (ICD-10-PCS; 2023-04-01)
PROC: 02RF08Z Replacement of Aortic Valve with Zooplastic Tissue, Open Approach (ICD-10-PCS; principal; 2023-04-01 08:00)
PROC: 06BQ4ZZ Excision of Left Saphenous Vein, Percutaneous Endoscopic Approach (ICD-10-PCS; 2023-04-01 08:00)
PROC: 06BP4ZZ Excision of Right Saphenous Vein, Percutaneous Endoscopic Approach (ICD-10-PCS; 2023-04-01 08:00)
PROC: B24BZZ3 Ultrasonography of Heart with Aorta, Intravascular (ICD-10-PCS; 2023-04-01 08:00)
PROC: 3E033XZ Introduction of Vasopressor into Peripheral Vein, Percutaneous Approach (ICD-10-PCS; 2023-04-02)
DX: I25.110 Atherosclerotic heart disease of native coronary artery with unstable angina pectoris (principal); N17.9 Acute kidney failure, unspecified; I11.0 Hypertensive heart disease with heart failure; D69.59 Other secondary thrombocytopenia; I95.9 Hypotension, unspecified; I71.21 Aneurysm of the ascending aorta, without rupture; I50.32 Chronic diastolic (congestive) heart failure; D62 Acute posthemorrhagic anemia; I35.0 Nonrheumatic aortic (valve) stenosis; E66.9 Obesity, unspecified; E03.9 Hypothyroidism, unspecified; E78.5 Hyperlipidemia, unspecified; I49.3 Ventricular premature depolarization; I25.5 Ischemic cardiomyopathy; R01.1 Cardiac murmur, unspecified; I44.0 Atrioventricular block, first degree; I44.7 Left bundle-branch block, unspecified; Z68.31 Body mass index [BMI] 31.0-31.9, adult; Z94.6 Bone transplant status; Q23.1 Congenital insufficiency of aortic valve; Z79.82 Long term (current) use of aspirin; Z79.890 Hormone replacement therapy; Z87.891 Personal history of nicotine dependence; Z86.16 Personal history of COVID-19; Z28.310 Unvaccinated for COVID-19; Z79.899 Other long term (current) drug therapy; Z82.49 Family history of ischemic heart disease and other diseases of the circulatory system
CPT/HCPCS: 70486; 71045; 71046; 71250; 80048; 80053; 80061; 80074; 82330; 82607; 82746; 82805; 83036; 83735; 84443; 85025; 85027; 85610; 85730; 86022; 86891; 87070; 88305; 88311; 93306; 93454; 93458; 93880; 93922; 93930; 93970; 94002; 94150; 94640

== ENCOUNTER → 2023-04-15 | Outpatient (CLI) | payer OTHER ==
--- NOTE | 2023-04-15 16:10 | XR ---
EXAMINATION TYPE: XR chest 2V DATE OF EXAM: 04/15/2023 3:55 PM COMPARISON: Chest radiographs from 04/07/2023 TECHNIQUE: XR chest 2V Frontal and lateral views of the chest. CLINICAL INDICATION:Male, 63 years old with history of R06.02; FINDINGS: Lungs/Pleura: Low lung volumes are present. No evidence of focal consolidation or pneumothorax. Blunt ing of the costophrenic angles is present. Pulmonary vascularity: Unremarkable. Heart/mediastinum: Cardiomediastinal silhouette is enlarged and stable. Left atrial appendage occlusi on device is present. Musculoskeletal: No acute osseous pathology. Midline sternotomy wires are noted. IMPRESSION: Cardiomegaly with bilateral pleural effusions.
== END | disposition home or self-care (01) ==
LOC: RADXRMAIN 14:15
PROVIDERS: ATTEND Surgery
DX: J90 Pleural effusion, not elsewhere classified (principal); I51.7 Cardiomegaly; R06.02 Shortness of breath
CPT/HCPCS: 71046

== ENCOUNTER → 2023-04-21 | Outpatient (CLI) | payer OTHER ==
--- NOTE | 2023-04-21 11:05 | XR ---
EXAMINATION TYPE: XR chest 2V DATE OF EXAM: 04/21/2023 10:57 AM COMPARISON: Chest radiographs from 04/15/2023 TECHNIQUE: XR chest 2V Frontal and lateral views of the chest. CLINICAL INDICATION:Male, 63 years old with history of CHEST PAIN; FINDINGS: Lungs/Pleura: Blunting of both costophrenic angles. Linear scarring atelectasis within the left lung base. No focal consolidation or pneumothorax. Pulmonary vascularity: Unremarkable. Heart/mediastinum: Cardiomediastinal silhouette is enlarged and stable. Cardiac valvular prosthesis. Left atrial appendage occlusion devices present. Musculoskeletal: No acute osseous pathology. Midline sternotomy wires and surgical clips project over the mediastinum. IMPRESSION: Overall stable examination with trace bilateral pleural effusions and cardiomegaly.
== END | disposition home or self-care (01) ==
LOC: RADXRMAIN 10:44
PROVIDERS: ATTEND Surgery
DX: J90 Pleural effusion, not elsewhere classified (principal); I51.7 Cardiomegaly
CPT/HCPCS: 71046

== ENCOUNTER 2023-04-22 13:08 | Emergency (ER) | payer OTHER ==
[2023-04-22 13:14] VITALS: RESP 18; TEMP 98.3
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
--- NOTE | 2023-04-22 14:22 | XR ---
EXAMINATION TYPE: XR chest 1V portable DATE OF EXAM: 04/22/2023 COMPARISON: 04/21/2023 INDICATION: Thoracentesis TECHNIQUE: Single frontal view of the chest is obtained. FINDINGS: The heart size is normal. The pulmonary vasculature is normal. Small right pleural effusion is present. Some infiltrate is present at the left base. Correlate for a telectasis. There is some minimal blunting the left costophrenic angle. IMPRESSION: 1. No pneumothorax postthoracentesis. 2. Small right and minimal left pleural effusions. .
[2023-04-22 14:47] VITALS: BP 116/70; PULSE 75
--- NOTE | 2023-04-22 20:28 | PCN ---
PROCEDURE NOTE PROCEDURE PERFORMED: Right-sided thoracentesis. PREOPERATIVE DIAGNOSIS: Right pleural effusion. POSTOPERATIVE DIAGNOSIS: Right pleural effusion. The right posterior chest was marked by ultrasound. The patient's procedure was done in the emergency room, Trauma [place] 2. FOOD BEVERAGE ATTENDANT: Dr. Moon. There were informed consent and universal time-out. INDICATION: Right pleural effusion. DESCRIPTION OF PROCEDURE: A time-out was completed verifying correct patient, procedure, site, positioning, and implant(s) or special equipment if applicable. Ultrasound guidance was used, and appropriate fluid pocket was identified and marked. The patient was positioned, prepped and draped in usual sterile fashion. Lidocaine was used to anesthetize the area. A Thoracentesis catheter was introduced into the right pleural space. About 800 mL of brown/bloody fluid was removed from the right pleural space. It will be sent for cytology, microbiology, and chemistry. Blood loss was none. The patient tolerated the procedure well. There was no immediate complication. A chest x-ray will be ordered. If the chest x-ray is okay, the patient could be discharged. No additional recommendations are made. MMODL / IJN: [id number] /
[2023-04-23 02:44] LABS: Glucose, BF Source Pleural Fluid; Glucose, Body Fluid 96 mg/dL; LDH, Body Fluid Source Pleural Fluid; T. Protein, Body Fluid Source Pleural Fluid; Total Protein, Body Fluid >3600 mg/dL
[2023-04-23 04:58] LABS: Appearance,BF Blood Tinged (Clear)
== END 2023-04-22 14:48 | disposition home or self-care (01) ==
LOC: EC 13:08 → SUPCPDRO 13:08 → EC 14:48
DX: J90 Pleural effusion, not elsewhere classified (principal); Z98.890 Other specified postprocedural states; I25.10 Atherosclerotic heart disease of native coronary artery without angina pectoris; I10 Essential (primary) hypertension; E78.5 Hyperlipidemia, unspecified; E07.9 Disorder of thyroid, unspecified; Z87.891 Personal history of nicotine dependence; F12.90 Cannabis use, unspecified, uncomplicated; Z79.82 Long term (current) use of aspirin; Z79.890 Hormone replacement therapy
CPT/HCPCS: 32555; 71045; 82945; 83615; 84157; 87070; 87205; 87252; 87496; 87498; 87502; 87529; 87634; 87798; 89050; 99284

== ENCOUNTER → 2023-04-22 | Outpatient (CLI) | payer OTHER ==
--- NOTE | 2023-04-22 11:48 | US ---
EXAMINATION TYPE: US chest DATE OF EXAM: 04/22/2023 COMPARISON: Radiograph 04/21/2023 CLINICAL INDICATION: Male, 63 years old with history of J90 PLEURAL EFFUSION; TECHNIQUE: Targeted ultrasound of the posterior lower bilateral hemithoraces EXAM MEASUREMENTS: Right Pleural Effusion pocket size: 12.1 cm Right skin surface to fluid distance: 3.8 cm Left Pleural Effusion pocket size: 1.3 cm Left skin surface to fluid distance: 3.7 cm Right side marked for possible thoracentesis outside the dept. Left side NOT marked for possible thoracentesis outside the dept. Pulmonologists are able to review the images in the patient?s EMR. IMPRESSIONS: Small to moderate right and trace left pleural effusions.
== END | disposition home or self-care (01) ==
LOC: RADUSWWP 08:52
PROVIDERS: ATTEND Surgery
DX: J90 Pleural effusion, not elsewhere classified (principal)
CPT/HCPCS: 76604

== ENCOUNTER → 2023-04-25 | Outpatient (CLI) | payer OTHER ==
--- NOTE | 2023-04-25 14:11 | XR ---
EXAMINATION TYPE: XR chest 2V DATE OF EXAM: 04/25/2023 1:54 PM COMPARISON: Chest radiographs from 04/22/2023 TECHNIQUE: XR chest 2V Frontal and lateral views of the chest. CLINICAL INDICATION:Male, 63 years old with history of R09.89 decreased lung sounds; FINDINGS: Lungs/Pleura: No evidence of focal consolidation or pneumothorax. Blunting of the costophrenic angles is present. Pulmonary vascularity: Unremarkable. Heart/mediastinum: Cardiomediastinal silhouette is unremarkable. Atherosclerotic calcifications are seen in the aorta. Left atrial appendage occlusion device is present. Musculoskeletal: No acute osseous pathology. Midline sternotomy wires are noted. IMPRESSION: Small bilateral pleural effusions with basilar atelectasis. Findings are similar to prior.
== END | disposition home or self-care (01) ==
LOC: RADXRMAIN 13:46
PROVIDERS: ATTEND Family Medicine
DX: J90 Pleural effusion, not elsewhere classified (principal); J98.11 Atelectasis; R09.89 Other specified symptoms and signs involving the circulatory and respiratory systems
CPT/HCPCS: 71046